=== PATIENT | female | born 1985 | race Caucasian/White ===

== ENCOUNTER 2016-08-11 12:45 | Emergency (ER) | payer MEDICARE ==
[2016-08-11 12:58] VITALS: O2SAT 97
[2016-08-11] MEDS ORDERED: Sodium Chloride 0.9% 1000 ML 1,000 ML IV STA (13:13)
[2016-08-11] MEDS ORDERED: Zofran 4 MG/2 ML VIAL IV ONE (13:13)
[2016-08-11] MEDS ORDERED: Pepcid 20 MG VIAL IV ONE ×2 (13:13→13:42)
[2016-08-11] MEDS ORDERED: SUBLIMAZE 100 MCG/2 ML IV ONE ×2 (13:13→14:49)
--- NOTE | 2016-08-11 13:20 | ERPHSYRPT ---
- History of Present Illness Time Seen by Provider: 08/11/16 12:47 Historian: patient, family Exam Limitations: no limitations Patient Subjective Stated Complaint: pt started prep last night at 5 om for colonoscopy, and started vomiting, vomited x3 today, had one bm since prep, abd pain ,chills and headache, no fever Triage Nursing Assessment: pt given sickness bag, alert and in no distress, resp easy, skin w/d and soft Physician History: patient started a GI prep for a colonoscopy; now wiht abd cramps , N&V; one small BM and some clear diarrhea; colonoscopy canceled due to poor prep, no fever or chilss; some gu symptoms Timing/Duration: today, gradual onset, worse Activities at Onset: other (colon prep) Quality: aching, cramping Abdominal Pain Onset Location: LLQ, epigastric Pain Radiation: no radiation Severity of Pain-Max: severe Severity of Pain-Current: moderate Modifying Factors: Improves With: other (colon prep) Associated Symptoms: back, loss of appetite, nausea, vomiting Previous symptoms: recently seen, recently treated Allergies/Adverse Reactions: magnesium citrate Allergy (Verified 08/11/16 12:59) morphine Allergy (Verified 12/27/13 23:14) Rash venom-honey bee [bee venom (honey bee)] Allergy (Verified 11/28/14 18:44) Hx Tetanus, Diphtheria Vaccination/Date Given: No Hx Influenza Vaccination/Date Given: Yes Hx Pneumococcal Vaccination/Date Given: No Immunizations Up to Date: Yes - Review of Systems Constitutional: No Symptoms Eyes: No Symptoms Ears, Nose, & Throat: No Symptoms Respiratory: No Cough, No Dyspnea, No Wheezing Cardiac: No Chest Pain, No Edema, No Palpitations, No Syncope Abdominal/Gastrointestinal: Abdominal Pain, Nausea, Vomiting, No Diarrhea, No Constipation, No Hematemesis, No Hematochezia, No Melena Genitourinary Symptoms: Dysuria, Flank Pain, No Frequency, No Hematuria, No Hesitancy, No Incontinence, No Urinary Retention, No Menorrhagia Musculoskeletal: Back Pain, No Deformity, No Fall, No Injury Skin: No Symptoms Neurological: No Symptoms Psychological: No Symptoms Endocrine: No Symptoms Hematologic/Lymphatic: No Symptoms Immunological/Allergic: No Symptoms - Past Medical History Pertinent Past Medical History: Yes Neurological History: No Pertinent History ENT History: No Pertinent History Cardiac History: No Pertinent History Respiratory History: Asthma Endocrine Medical History: No Pertinent History Musculoskeletal History: Degenerative Disk Disease GI Medical History: GERD, Irritable Bowel Psycho-Social History: Bipolar, Other Other Medical History: Hx of sciatica treated with chiropractic and physical therapy. Bipolar. - Past Surgical History Past Surgical History: Yes Gastrointestinal: Cholecystectomy Other Surgical History: cyst removed from tailbone - Social History Smoking Status: Never smoker Exposure to second hand smoke: Yes Alcohol Use: None Drug Use: none Patient Lives Alone: No Significant Family History: no pertinent family hx - Female History Hx Last Menstrual Period: 3 weks ago Hx Now: Yes - Nursing Vital Signs Nursing Vital Signs: Initial Vital Signs Temperature 97.4 F Temperature Source Oral Pulse Rate 70 Respiratory Rate 18 Blood Pressure [] 122/63 Pain Intensity 7 - Physical Exam General Appearance: moderate distress, alert, obese (mild) Eye Exam: PERRL/EOMI, eyes nml inspection, No photophobia Ears, Nose, Throat Exam: normal ENT inspection, TMs normal, pharynx normal, moist mucous membranes Neck Exam: normal inspection, non-tender, supple, full range of motion, No meningismus, No JVD Respiratory Exam: normal breath sounds, lungs clear, airway intact, No chest tenderness, No respiratory distress Cardiovascular Exam: regular rate/rhythm, normal heart sounds, normal peripheral pulses, No murmur Gastrointestinal/Abdomen Exam: soft, normal bowel sounds (hypoactive present), tenderness (epig > LLQ), No distention, No mass, No guarding, No pulsatile mass , No rebound, No organomegaly Pelvic Exam: deferred Rectal Exam: normal exam, normal rectal tone, No mass, No hemorrhoids, No black stool, No blood Back Exam: normal inspection, normal range of motion, CVA tenderness (right only ) Extremity Exam: normal inspection, normal range of motion, pelvis stable Neurologic Exam: alert, oriented x 3, cooperative, 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, normal mood/affect, nml cerebellar function, nml station & gait, sensation nml Skin Exam: normal color, warm, dry, No rash SpO2 Interpretation: normal SpO2: 97 Oxygen Delivery: Room Air - Course Nursing assessment & vital signs reviewed: Yes - Radiology Exams Abdomen X-ray Interpretation: Reviewed by me, Teleradiologist Report, Negative Ordered Tests: Active Orders 24 hr Category Date Time Status IV Insertion STAT Care 08/11/16 13:13 Active Re-Check Vital Signs STAT Care 08/11/16 13:13 Completed OBSTR/ACUTE ABDOMEN SERIES Stat Exams 08/11/16 13:13 Completed AMYLASE Stat Lab 08/11/16 13:26 Completed CBC W DIFF Stat Lab 08/11/16 13:26 Completed CMP Stat Lab 08/11/16 13:26 Completed LIPASE Stat Lab 08/11/16 13:26 Completed UA W/ MICROSCOPIC Stat Lab 08/11/16 13:35 Completed Medication Summary Discontinued Medications Generic Name Dose Route Start Last Admin Trade Name Freq PRN Reason Stop Dose Admin Famotidine 20 mg 08/11/16 13:13 08/11/16 13:49 Pepcid 20 Mg Vial IV 08/11/16 13:14 20 mg STAT ONE Administration Famotidine Confirm 08/11/16 13:42 Pepcid 20 Mg Vial Administered 08/11/16 13:43 Dose 20 mg IV .STK-MED ONE Fentanyl Citrate 50 mcg 08/11/16 13:13 08/11/16 13:49 Sublimaze 100 Mcg/2 Ml IV 08/11/16 13:14 50 mcg STAT ONE Administration Fentanyl Citrate Confirm 08/11/16 13:42 Sublimaze 100 Mcg/2 Ml Administered 08/11/16 13:43 Dose 100 mcg .ROUTE .STK-MED ONE Fentanyl Citrate 50 mcg 08/11/16 14:49 08/11/16 14:57 Sublimaze 100 Mcg/2 Ml IV 08/11/16 14:50 50 mcg STAT ONE Administration Fentanyl Citrate Confirm 08/11/16 14:56 Sublimaze 100 Mcg/2 Ml Administered 08/11/16 14:57 Dose 100 mcg .ROUTE .STK-MED ONE Sodium Chloride 1,000 mls @ 999 mls/hr 08/11/16 13:13 08/11/16 13:50 Sodium Chloride 0.9% 1000 Ml IV 08/11/16 14:13 999 mls/hr .Q1H1M STA Administration Sodium Chloride Confirm 08/11/16 13:43 Sodium Chloride 0.9% 1000 Ml Administered 08/11/16 13:44 Dose 1,000 mls @ ud .ROUTE .STK-MED ONE Ondansetron HCl 4 mg 08/11/16 13:13 08/11/16 13:49 Zofran 4 Mg/2 Ml Vial IV 08/11/16 13:14 4 mg STAT ONE Administration Ondansetron HCl Confirm 08/11/16 13:42 Zofran 4 Mg/2 Ml Vial Administered 08/11/16 13:43 Dose 4 mg .ROUTE .STK-MED ONE Lab/Rad Data: Laboratory Result Diagrams 08/11/16 13:26 08/11/16 13:26 Laboratory Results 08/11/16 08/11/16 08/11/16 Range/Units 13:35 13:26 13:26 WBC 6.4 (4.0-10.5) K/mm3 RBC 4.11 (4.1-5.4) M/mm3 Hgb 12.5 (12.0-16.0) gm/dl Hct 38.1 (35-47) % MCV 92.7 (78-100) fl MCH 30.4 (26-32) pg MCHC 32.8 (32-36) g/dl RDW 13.0 (11.5-14.0) % Plt Count 247 (150-450) K/mm3 MPV 11.1 H (6-9.5) fl Gran % 57.2 (36.0-66.0) % Lymphocytes % 33.7 (24.0-44.0) % Monocytes % 8.6 (0.0-12.0) % Eosinophils % 0.3 (0.00-5.0) % Basophils % 0.2 (0.0-0.4) % Basophils # 0.01 (0-0.4) Sodium 143 (136-145) mEq/L Potassium 3.7 (3.5-5.1) mEq/L Chloride 106 (98-107) mEq/L Carbon Dioxide 26.5 (21-32) mEq/L Anion Gap 13.7 (5-15) MEQ/L BUN 8 L (9-20) mg/dL Creatinine 0.86 (0.55-1.30) mg/dl Estimated GFR > 60 ML/MIN Glucose 90 (70-110) MG/DL Calcium 9.1 (8.5-10.1) mg/dL Total Bilirubin 0.4 (0.2-1.0) mg/dL AST 19 (15-37) U/L ALT 30 (12-78) U/L Alkaline Phosphatase 68 (46-116) U/L Serum Total Protein 7.8 (6.4-8.2) gm/dL Albumin 3.7 (3.4-5.0) g/dL Amylase 62 (25-115) U/L Lipase 200 (73-393) U/L Ur Collection Type CCMS Urine Color YELLOW (YELLOW) Urine Appearance CLEAR (CLEAR) Urine pH 7.5 (5-6) Ur Specific [place] 1.015 (1.005-1.025) Urine Protein NEGATIVE (Negative) Urine Glucose (UA) NEGATIVE (NEGATIVE) mg/dL Urine Ketones NEGATIVE (NEGATIVE) Urine Nitrite NEGATIVE (NEGATIVE) Urine Bilirubin NEGATIVE (NEGATIVE) Urine Urobilinogen 0.2 (0-1) mg/dL Urine WBC (Auto) NEGATIVE (NEGATIVE) Urine RBC (Auto) TRACE-INTACT (0-5) Amandeep/ul Urine Microscopic RBC 0-2 (0-2) /HPF Urine Microscopic WBC 0-2 (0-5) /HPF Ur Epithelial Cells RARE (FEW) /HPF Specimen Received 08-11-16 1340 reviewed - Progress Progress: improved (after meds), pain not gone completely, re-examined (after meds and xr) Progress Note: 08/11/16 13:19 IV started, meds given;labs and xr pending; will recheck after xr 08/11/16 14:00 recheck post xr; no meds yet; no change; labs ok; xr ok; medicating now; will recheck 08/11/16 14:05 recheck and pain resolving; feeling better; pushing IV fluids, will continue IV fluids and recheck 08/11/16 14:21 rechecked after 500 cc IV fluid and patient no longer nauseated and pain improved 08/11/16 15:09 patient continues to improve clinically and feels better; 1000cc of IV fluids given; treatment plan consulted and instructions given Counseled pt/family regarding: lab results, diagnosis, need for follow-up, rad results - Departure Time of Disposition: 15:10 Departure Disposition: Home Clinical Impression: Abdominal pain Condition: Stable Critical Care Time: No Referrals: ANDRES MASSEY [Primary Care Provider] - Instructions: Nausea -- Adult, Abdominal Pain-Adult Additional Instructions: clear fluids 12-24 hours; rest Follow-up with family doctor as directed. Call for appointment. Return if any problems. If you smoke please stop. Call or follow up with your family doctor for assistance if you need it to stop. Please wear your seatbelt when driving. Have a nice day. Thank you for allowing us to participate in your care today. :o) Dr Cem Jean-Baptiste Prescriptions: Ondansetron [Zofran Odt] 4 mg PO Q8H PRN PRN #10 tab.rapdis PRN Reason: Nausea
[2016-08-11] MEDS ORDERED: Zofran 4 MG/2 ML VIAL ONE (13:42)
[2016-08-11] MEDS ORDERED: SUBLIMAZE 100 MCG/2 ML ONE ×2 (13:42→14:56)
[2016-08-11] MEDS ORDERED: Sodium Chloride 0.9% 1000 ML 1,000 ML ONE (13:43)
[2016-08-11 13:52] LABS: Collection Type CCMS
[2016-08-11 13:53] LABS: COMPLETE URINE MICROSCOPIC? YES; Epithelial Cells RARE /HPF (FEW); Ph 7.5 (5-6); WBC 0-2 /HPF (0-5)
[2016-08-11 13:57] LABS: ALBUMIN 3.7 g/dL (3.4-5.0); ALKALINE PHOSPHATASE 68 U/L (46-116); ANION GAP 13.7 MEQ/L (5-15); BILIRUBIN,TOTAL 0.4 mg/dL (0.2-1.0); BLOOD UREA NITROGEN 8 mg/dL (9-20); CHLORIDE 106 mEq/L (98-107); Carbon Dioxide 26.5 mEq/L (21-32); Glucose 90 MG/DL (70-110); LIPASE 200 U/L (73-393); Potassium 3.7 mEq/L (3.5-5.1); SGOT/AST 19 U/L (15-37); SGPT/ALT 30 U/L (12-78); SODIUM 143 mEq/L (136-145); Total Protein 7.8 gm/dL (6.4-8.2)
--- NOTE | 2016-08-11 13:59 | XRAY ---
Indication: Abdominal pain. Comparison: Chest exam December 06, 2014 2 views of the abdomen appears nonacute and nonobstructed with previous cholecystectomy, right pelvic phlebolith, and solitary hepatic calcified granuloma. Solid organs and osseous structures unremarkable. Single PA chest again demonstrates normal heart and lungs. Bony thorax intact with interval lower cervical fusion surgery. Impression: Nonacute nonobstructed abdomen. Normal 1 view chest.
[2016-08-11 14:41] LABS: BASOPHIL % 0.2 % (0.0-0.4); Eosinophil % 0.3 % (0.00-5.0); Granulocytes % 57.2 % (36.0-66.0); Lymphocytes % 33.7 % (24.0-44.0); Mean Cell Volume 92.7 fl (78-100); Mean Corpuscular Hemoglobin 30.4 pg (26-32); Mean Platelet Volume 11.1 fl (6-9.5); Monocytes % 8.6 % (0.0-12.0); Platelet Count 247 K/mm3 (150-450); Red Blood Count 4.11 M/mm3 (4.1-5.4); White Blood Count 6.4 K/mm3 (4.0-10.5)
[2016-08-11 21:42] VITALS: BP 122/63; PULSE 70
== END 2016-08-11 15:20 | disposition home or self-care (01) ==
LOC: ED 12:45
DX: R10.9 Unspecified abdominal pain (principal); R11.2 Nausea with vomiting, unspecified; K21.9 Gastro-esophageal reflux disease without esophagitis; K58.9 Irritable bowel syndrome, unspecified
CPT/HCPCS: 36000; 36415; 74022; 80053; 81000; 82150; 83690; 85025; 96360; 96374; 96375; 96376; 99283; 99284; J2405; J3010

== ENCOUNTER 2016-10-13 19:32 | Emergency (ER) | payer MEDICARE ==
[2016-10-13 19:48] VITALS: O2SAT 97
--- NOTE | 2016-10-13 20:02 | ERPHSYRPT ---
- History of Present Illness Time Seen by Provider: 10/13/16 19:51 Source: patient Patient Subjective Stated Complaint: Pt sts hx of asthma, feeling short of breath for a few days. Sts has a cought that has now subsided. Sts also worsening heartburn for last few days. Sts protonix is not helping. Sts chest tightness for last few hours which she relates to asthma. Sts it was center of chest radiating into anterior neck. Sts worse with lying down. Describes as dull, tightness, pressure. Triage Nursing Assessment: Pt alert, oriented, answers all questions appropriately. Speaking in full sentences without difficulty. SPO2 97%. Pt ambulatory to room, steady gait noted. Skin p/w/d, resps non-labored. Allergies/Adverse Reactions: magnesium citrate Allergy (Verified 08/11/16 12:59) morphine Allergy (Verified 12/27/13 23:14) Rash venom-honey bee [bee venom (honey bee)] Allergy (Verified 11/28/14 18:44) Hx Tetanus, Diphtheria Vaccination/Date Given: No Hx Influenza Vaccination/Date Given: Yes Hx Pneumococcal Vaccination/Date Given: Yes Immunizations Up to Date: Yes - Past Medical History Pertinent Past Medical History: Yes Neurological History: No Pertinent History ENT History: No Pertinent History Cardiac History: No Pertinent History Respiratory History: Asthma Endocrine Medical History: No Pertinent History Musculoskeletal History: Degenerative Disk Disease GI Medical History: GERD, Irritable Bowel Psycho-Social History: Bipolar, Other Other Medical History: Hx of sciatica treated with chiropractic and physical therapy. Bipolar. - Past Surgical History Past Surgical History: Yes Gastrointestinal: Cholecystectomy Other Surgical History: cyst removed from tailbone - Social History Smoking Status: Never smoker Exposure to second hand smoke: No Alcohol Use: None Drug Use: none Patient Lives Alone: No Significant Family History: no pertinent family hx - Female History Hx Last Menstrual Period: couple days ago Hx Now: Yes - Nursing Vital Signs Nursing Vital Signs: Initial Vital Signs Temperature 98.4 F Temperature Source Oral Pulse Rate 74 Respiratory Rate 18 Blood Pressure [Right Arm] 120/74 Pain Intensity 5 - Physical Exam SpO2: 97 Oxygen Delivery: Room Air
[2016-10-13] MEDS ORDERED: TYLENOL 325 MG PO ONE (20:07)
[2016-10-13] MEDS ORDERED: Zofran 4 MG/2 ML VIAL IV ONE (20:07)
[2016-10-13] MEDS ORDERED: TORAdol 30 mg Injection IV ONE (20:07)
[2016-10-13] MEDS ORDERED: GI COCKTAIL 60ML (Belladonn/Phenobarb/Lidoc PO ONE (20:09)
[2016-10-13] MEDS ORDERED: Sodium Chloride 0.9% 1000 ML 1,000 ML IV STA (20:10)
--- NOTE | 2016-10-13 20:10 | ERPHSYRPT ---
- History of Present Illness Time Seen by Provider: 10/13/16 20:04 Source: patient Exam Limitations: no limitations Patient Subjective Stated Complaint: Pt sts hx of asthma, feeling short of breath for a few days. Sts has a cought that has now subsided. Sts also worsening heartburn for last few days. Sts protonix is not helping. Sts chest tightness for last few hours which she relates to asthma. Sts it was center of chest radiating into anterior neck. Sts worse with lying down. Describes as dull, tightness, pressure. Triage Nursing Assessment: Pt alert, oriented, answers all questions appropriately. Speaking in full sentences without difficulty. SPO2 97%. Pt ambulatory to room, steady gait noted. Skin p/w/d, resps non-labored. Physician History: The patient is a 30-year-old obese female with a past medical history of asthma initially complaining of shortness of breath and a cough for 2 days but now the cough and shortness of breath have subsided. She now complains of heartburn and substernal chest pain that hurts more with breathing. She has been belching frequently and this makes the pain in her chest worse. The Protonix she is on is helping. She tried Pepto-Bismol today but vomited. She's vomited the past 3 days. In addition to her daily medicines for asthma she has taken albuterol nebulizers that have relieved her wheezing that she was complaining about today. Her past medical history is significant for asthma, fibromyalgia, hypertension, and IBS. Her past surgical history is significant for cholecystectomy. Timing/Duration: day(s) (3) Severity: moderate Modifying Factors: Improves With: eating Associated Symptoms: nausea, vomiting, heartburn, cough Allergies/Adverse Reactions: magnesium citrate Allergy (Verified 10/13/16 19:51) morphine Allergy (Verified 10/13/16 19:51) Rash venom-honey bee [bee venom (honey bee)] Allergy (Verified 10/13/16 19:51) Home Medications: Albuterol 2.5 mg/3 ml Neb [Proventil 2.5 mg/3 ml Neb] 2.5 mg IH PRN [History] Baclofen 10 mg PO 5XD 10/13/16 [History] Bupropion HCl [Wellbutrin Sr] 150 mg PO DAILY 10/13/16 [History] Doxycycline Hyclate 100 mg PO DAILY 10/13/16 [History] Fluoxetine HCl [Prozac] 20 mg PO DAILY 10/13/16 [History] Gabapentin 100 mg PO DAILY 10/13/16 [History] Mometasone/Formoterol [Dulera 100 Mcg/5 Mcg Inhaler] 13 gm IH 10/13/16 [History] Pantoprazole Sodium [Protonix] 40 mg PO DAILY 10/13/16 [History] Hx Tetanus, Diphtheria Vaccination/Date Given: No Hx Influenza Vaccination/Date Given: Yes Hx Pneumococcal Vaccination/Date Given: Yes Immunizations Up to Date: Yes - Review of Systems Constitutional: No Fever, No Chills Eyes: No Symptoms Ears, Nose, & Throat: No Symptoms Respiratory: Cough, Wheezing Cardiac: No Chest Pain, No Edema, No Syncope Abdominal/Gastrointestinal: Nausea, Vomiting Genitourinary Symptoms: No Dysuria Musculoskeletal: No Back Pain, No Neck Pain Skin: No Rash Neurological: No Dizziness, No Focal Weakness, No Sensory Changes Psychological: No Symptoms Endocrine: No Symptoms Hematologic/Lymphatic: No Symptoms Immunological/Allergic: No Symptoms All Other Systems: Reviewed and Negative - Past Medical History Pertinent Past Medical History: Yes Neurological History: No Pertinent History ENT History: No Pertinent History Cardiac History: No Pertinent History Respiratory History: Asthma Endocrine Medical History: No Pertinent History Musculoskeletal History: Degenerative Disk Disease GI Medical History: GERD, Irritable Bowel Psycho-Social History: Bipolar, Other Other Medical History: Hx of sciatica treated with chiropractic and physical therapy. Bipolar. - Past Surgical History Past Surgical History: Yes Gastrointestinal: Cholecystectomy Other Surgical History: cyst removed from tailbone - Social History Smoking Status: Never smoker Exposure to second hand smoke: No Alcohol Use: None Drug Use: none Patient Lives Alone: No Significant Family History: no pertinent family hx - Female History Hx Last Menstrual Period: couple days ago Hx Now: Yes - Nursing Vital Signs Nursing Vital Signs: Initial Vital Signs Temperature 98.4 F Temperature Source Oral Pulse Rate 64 Respiratory Rate 16 Blood Pressure [] 122/76 Pain Intensity 3 - Physical Exam General Appearance: no apparent distress, alert Eye Exam: PERRL/EOMI, eyes nml inspection Ears, Nose, Throat Exam: normal ENT inspection, TMs normal, pharynx normal, moist mucous membranes Neck Exam: normal inspection, non-tender, supple, full range of motion Respiratory Exam: normal breath sounds, lungs clear, other (Examination of the anterior chest wall reveals disproportionate tenderness to palpation of light touch to the sternum.), No respiratory distress, No diminished breath sounds, No rhonchi, No wheezing Cardiovascular Exam: regular rate/rhythm, normal heart sounds, normal peripheral pulses Gastrointestinal/Abdomen Exam: soft, normal bowel sounds, No tenderness, No mass Pelvic Exam: not done Rectal Exam: not done Back Exam: normal inspection, normal range of motion, No CVA tenderness, No vertebral tenderness Extremity Exam: normal inspection, normal range of motion, pelvis stable Neurologic Exam: alert, oriented x 3, cooperative, normal mood/affect, nml cerebellar function, nml station & gait, sensation nml, No motor deficits Skin Exam: normal color, warm, dry, No rash Lymphatic Exam: No adenopathy SpO2 Interpretation: normal SpO2: 97 Oxygen Delivery: Room Air - Radiology Exams Chest X-ray Interpretation: Interpreted by me, Negative, Other (Neg chest, comp cxr .) Ordered Tests: Active Orders 24 hr Category Date Time Status IV Insertion STAT Care 10/13/16 20:07 Active CHEST 2 VIEWS (PA AND LAT) Stat Exams 10/13/16 20:08 Taken CBC W DIFF Stat Lab 10/13/16 20:45 Completed CMP Stat Lab 10/13/16 20:45 Completed Medication Summary Discontinued Medications Generic Name Dose Route Start Last Admin Trade Name Dustyq PRN Reason Stop Dose Admin Acetaminophen 975 mg 10/13/16 20:07 10/13/16 20:24 Tylenol 325 Mg PO 10/13/16 20:08 975 mg STAT ONE Administration Acetaminophen Confirm 10/13/16 20:18 Tylenol 325 Mg Administered 10/13/16 20:19 Dose 975 mg .ROUTE .STK-MED ONE Al Hydrox/Mg Hydrox/Simethicone Confirm 10/13/16 20:18 Maalox Es 30 Ml Unit Dose Administered 10/13/16 20:19 Dose 30 ml .ROUTE .STK-MED ONE Belladonna Alkaloids/Phenobarbital 60 ml 10/13/16 20:09 10/13/16 20:24 Gi Cocktail 60ml (Belladonn/Phenobarb/Lidoc* PO 10/13/16 20:10 60 ml STAT ONE Administration Belladonna Alkaloids/Phenobarbital Confirm 10/13/16 20:18 Donnatol Liquid Administered 10/13/16 20:19 Dose 64.8 mg .ROUTE .STK-MED ONE Sodium Chloride 1,000 mls @ 999 mls/hr 10/13/16 20:10 10/13/16 20:24 Sodium Chloride 0.9% 1000 Ml IV 10/13/16 21:10 999 mls/hr .Q1H1M STA Administration Sodium Chloride Confirm 10/13/16 20:18 Sodium Chloride 0.9% 1000 Ml Administered 10/13/16 20:19 Dose 1,000 mls @ ud .ROUTE .STK-MED ONE Ketorolac Tromethamine 30 mg 10/13/16 20:07 10/13/16 20:24 Toradol 30 Mg Injection IV 10/13/16 20:08 30 mg STAT ONE Administration Ketorolac Tromethamine Confirm 10/13/16 20:17 Toradol 30 Mg Injection Administered 10/13/16 20:18 Dose 30 mg .ROUTE .STK-MED ONE Lidocaine HCl Confirm 10/13/16 20:19 Xylocaine Hcl Viscous * Administered 10/13/16 20:20 Dose 20 ml .ROUTE .STK-MED ONE Ondansetron HCl 4 mg 10/13/16 20:07 10/13/16 20:24 Zofran 4 Mg/2 Ml Vial IV 10/13/16 20:08 4 mg STAT ONE Administration Ondansetron HCl Confirm 10/13/16 20:17 Zofran 4 Mg/2 Ml Vial Administered 10/13/16 20:18 Dose 4 mg .ROUTE .STK-MED ONE Lab/Rad Data: Laboratory Result Diagrams 10/13/16 20:45 10/13/16 20:45 Laboratory Results 10/13/16 10/13/16 Range/Units 20:45 20:45 WBC 8.3 (4.0-10.5) K/mm3 RBC 4.27 (4.1-5.4) M/mm3 Hgb 13.3 (12.0-16.0) gm/dl Hct 40.6 (35-47) % MCV 95.1 (78-100) fl MCH 31.1 (26-32) pg MCHC 32.8 (32-36) g/dl RDW 13.6 (11.5-14.0) % Plt Count 241 (150-450) K/mm3 MPV 10.9 H (6-9.5) fl Gran % 65.1 (36.0-66.0) % Lymphocytes % 25.7 (24.0-44.0) % Monocytes % 7.3 (0.0-12.0) % Eosinophils % 1.7 (0.00-5.0) % Basophils % 0.2 (0.0-0.4) % Basophils # 0.02 (0-0.4) Sodium 144 (136-145) mEq/L Potassium 4.2 (3.5-5.1) mEq/L Chloride 106 (98-107) mEq/L Carbon Dioxide 29.2 (21-32) mEq/L Anion Gap 12.7 (5-15) MEQ/L BUN 11 (9-20) mg/dL Creatinine 0.81 (0.55-1.30) mg/dl Estimated GFR > 60 ML/MIN Glucose 95 (70-110) MG/DL Calcium 9.6 (8.5-10.1) mg/dL Total Bilirubin 0.3 (0.2-1.0) mg/dL AST 25 (15-37) U/L ALT 34 (12-78) U/L Alkaline Phosphatase 60 (46-116) U/L Serum Total Protein 8.3 H (6.4-8.2) gm/dL Albumin 3.9 (3.4-5.0) g/dL - Progress Progress: improved Progress Note: 10/13/16 20:54 After the patient was given a GI cocktail, the pain subsided for a few minutes but the pain has slowly returned. Counseled pt/family regarding: lab results, diagnosis, need for follow-up, rad results - Departure Time of Disposition: 21:15 Departure Disposition: Home Clinical Impression: Reflux esophagitis Condition: Stable Critical Care Time: No Additional Instructions: Your laboratory results and the chest x-ray were normal. You were given a GI cocktail in the emergency room with immediate resolution of the pain. However the pain slowly began to return. Your diagnosis is reflux esophagitis. Continue with Protonix as directed. In addition take Maalox 30 mL as needed throughout the day. Refrain from eating or drinking any spicy foods. Follow- up with primary medical doctor.
[2016-10-13] MEDS ORDERED: Zofran 4 MG/2 ML VIAL ONE (20:17)
[2016-10-13] MEDS ORDERED: TORAdol 30 mg Injection ONE (20:17)
[2016-10-13] MEDS ORDERED: TYLENOL 325 MG ONE (20:18)
[2016-10-13] MEDS ORDERED: Sodium Chloride 0.9% 1000 ML 1,000 ML ONE (20:18)
[2016-10-13] MEDS ORDERED: Donnatol Liquid ONE (20:18)
[2016-10-13] MEDS ORDERED: MAALOX ES 30 ML UNIT DOSE ONE (20:18)
[2016-10-13] MEDS ORDERED: XYLOCAINE HCl Viscous ONE (20:19)
[2016-10-13 20:49] LABS: BASOPHIL % 0.2 % (0.0-0.4); Eosinophil % 1.7 % (0.00-5.0); Granulocytes % 65.1 % (36.0-66.0); Lymphocytes % 25.7 % (24.0-44.0); Mean Cell Volume 95.1 fl (78-100); Mean Corpuscular Hemoglobin 31.1 pg (26-32); Mean Platelet Volume 10.9 fl (6-9.5); Monocytes % 7.3 % (0.0-12.0); Platelet Count 241 K/mm3 (150-450); Red Blood Count 4.27 M/mm3 (4.1-5.4); Red Cell Distribution Width 13.6 % (11.5-14.0); White Blood Count 8.3 K/mm3 (4.0-10.5)
[2016-10-13 20:58] VITALS: BP 122/76; PULSE 64
[2016-10-13 21:10] LABS: ALBUMIN 3.9 g/dL (3.4-5.0); ALKALINE PHOSPHATASE 60 U/L (46-116); ANION GAP 12.7 MEQ/L (5-15); BILIRUBIN,TOTAL 0.3 mg/dL (0.2-1.0); BLOOD UREA NITROGEN 11 mg/dL (9-20); CHLORIDE 106 mEq/L (98-107); Carbon Dioxide 29.2 mEq/L (21-32); Glucose 95 MG/DL (70-110); Potassium 4.2 mEq/L (3.5-5.1); SGOT/AST 25 U/L (15-37); SGPT/ALT 34 U/L (12-78); SODIUM 144 mEq/L (136-145); Total Protein 8.3 gm/dL (6.4-8.2)
--- NOTE | 2016-10-14 08:32 | XRAY ---
Indication: Cough. Comparison: August 11, 2016. PA/lateral chest again demonstrates normal heart and lungs. Bony thorax intact again with previous lower cervical fusion surgery. No new/acute findings.
== END 2016-10-13 21:48 | disposition home or self-care (01) ==
LOC: ED 19:32
DX: K21.0 Gastro-esophageal reflux disease with esophagitis (principal); R06.02 Shortness of breath; R05 Cough; J45.909 Unspecified asthma, uncomplicated; I10 Essential (primary) hypertension; K58.9 Irritable bowel syndrome, unspecified; M79.7 Fibromyalgia; R11.2 Nausea with vomiting, unspecified; R12 Heartburn; Z79.899 Other long term (current) drug therapy
CPT/HCPCS: 36000; 36415; 71020; 80053; 85025; 96360; 96374; 96375; 99284; J1885; J2405; A9270-GY

== ENCOUNTER 2017-03-10 18:55 | Emergency (ER) | payer MEDICARE ==
[2017-03-10] MEDS ORDERED: Zofran 4 MG/2 ML VIAL IV ONE (19:09)
[2017-03-10] MEDS ORDERED: TORAdol 30 mg Injection IV ONE ×2 (19:09→20:27)
[2017-03-10] MEDS ORDERED: Sodium Chloride 0.9% 1000 ML 1,000 ML IV SCH (19:15)
--- NOTE | 2017-03-10 19:16 | ERPHSYRPT ---
- History of Present Illness Time Seen by Provider: 03/10/17 19:01 Historian: patient Physician History: onset right flank pain yesterday; getting worse; colicky like last kidney stone 2007; N&V- no blood; BMs ok; voiding ok but dark; no gross blood; no fever or chills; no trauma; no travel or exposures; no fever or chills Timing/Duration: today (worse and moveing), yesterday (onseet), sudden, worse Activities at Onset: rest Quality: aching, stabbing Abdominal Pain Onset Location: flank (right) Pain Radiation: RLQ Severity of Pain-Max: severe Severity of Pain-Current: severe Modifying Factors: Improves With: nothing Associated Symptoms: back, loss of appetite, nausea, vomiting Previous symptoms: same symptoms as today Allergies/Adverse Reactions: magnesium citrate Allergy (Verified 10/13/16 19:51) morphine Allergy (Verified 10/13/16 19:51) Rash venom-honey bee [bee venom (honey bee)] Allergy (Verified 10/13/16 19:51) Home Medications: Albuterol 2.5 mg/3 ml Neb [Proventil 2.5 mg/3 ml Neb] 2.5 mg IH PRN [History] Baclofen 10 mg PO 5XD 10/13/16 [History] Bupropion HCl [Wellbutrin Sr] 150 mg PO DAILY 10/13/16 [History] Doxycycline Hyclate 100 mg PO DAILY 10/13/16 [History] Fluoxetine HCl [Prozac] 20 mg PO DAILY 10/13/16 [History] Gabapentin 200 mg PO DAILY 10/13/16 [History] Mometasone/Formoterol [Dulera 100 Mcg/5 Mcg Inhaler] 13 gm IH 10/13/16 [History] Pantoprazole Sodium [Protonix] 40 mg PO DAILY 10/13/16 [History] Linaclotide [Linzess] 0 mcg PO DAILY 03/10/17 [History] Lurasidone HCl [Latuda] 20 mg PO DAILY 03/10/17 [History] Hx Tetanus, Diphtheria Vaccination/Date Given: No Hx Influenza Vaccination/Date Given: Yes Hx Pneumococcal Vaccination/Date Given: Yes - Review of Systems Constitutional: No Symptoms Eyes: No Symptoms Ears, Nose, & Throat: No Symptoms Respiratory: No Cough, No Dyspnea, No Wheezing Cardiac: No Chest Pain, No Edema, No Syncope Abdominal/Gastrointestinal: Abdominal Pain (right flank), Nausea, Vomiting, Appetite Changes, No Diarrhea, No Constipation Genitourinary Symptoms: Flank Pain, No Dysuria, No Hematuria, No Incontinence Musculoskeletal: Back Pain (right flank), No Fall, No Injury Skin: No Symptoms Neurological: No Symptoms Psychological: No Symptoms Endocrine: No Symptoms Hematologic/Lymphatic: No Symptoms Immunological/Allergic: No Symptoms - Past Medical History Pertinent Past Medical History: Yes Neurological History: Migraines ENT History: No Pertinent History Cardiac History: Arrhythmia, Hypertension Respiratory History: Asthma Endocrine Medical History: No Pertinent History Musculoskeletal History: Fibromyalgia GI Medical History: GERD, Irritable Bowel Psycho-Social History: Bipolar, Other Other Medical History: back pain, back surgery, carpal tunnel - Past Surgical History Past Surgical History: Yes Gastrointestinal: Cholecystectomy Other Surgical History: cyst removed from tailbone - Social History Smoking Status: Never smoker Exposure to second hand smoke: No Alcohol Use: None Drug Use: none Patient Lives Alone: No Significant Family History: no pertinent family hx - Female History Hx Now: Yes - Nursing Vital Signs Nursing Vital Signs: Initial Vital Signs Temperature 99.4 F 03/10/17 19:15 Pulse Rate 70 03/10/17 19:15 Respiratory Rate 20 03/10/17 19:15 Blood Pressure 124/73 03/10/17 19:15 O2 Sat by Pulse Oximetry 96 03/10/17 19:15 Pain Scale Pain Intensity 6 - Physical Exam General Appearance: severe distress, alert, obese Eye Exam: PERRL/EOMI, eyes nml inspection, No photophobia Ears, Nose, Throat Exam: normal ENT inspection, TMs normal, pharynx normal, moist mucous membranes Neck Exam: normal inspection, non-tender, supple, full range of motion, No meningismus, No JVD Respiratory Exam: normal breath sounds, lungs clear, airway intact, No chest tenderness, No respiratory distress, No rhonchi, No wheezing Cardiovascular Exam: regular rate/rhythm, normal heart sounds, normal peripheral pulses, capillary refill <2 sec, No murmur Gastrointestinal/Abdomen Exam: soft, normal bowel sounds, No tenderness, No guarding, No rebound, No organomegaly Pelvic Exam: not done Rectal Exam: deferred Back Exam: normal inspection, normal range of motion, CVA tenderness (right only ), No vertebral tenderness, No rash Extremity Exam: normal inspection, No normal range of motion, No katarzyna's sign, No pedal edema Neurologic Exam: alert, oriented x 3, cooperative, x ray inspector II-XII nml as tested, normal mood/affect, nml cerebellar function, nml station & gait Skin Exam: normal color, warm, dry, No rash - Course Nursing assessment & vital signs reviewed: Yes - CT Exams Abdomen/Pelvis CT Interpretation: Tele-radiologist Report, Other (2-3 mm stone distal right ureter; also small stone in left and right renal pelvis) Ordered Tests: Active Orders 24 hr Category Date Time Status Clean Catch Urine Specimen STAT Care 03/10/17 19:44 Active IV Insertion STAT Care 03/10/17 19:09 Active NPO (ED) STAT Care 03/10/17 19:09 Active Re-Check Vital Signs STAT Care 03/10/17 19:09 Active ABDOMEN AND PELVIS W/0 CONTRAS [CT] Stat Exams 03/10/17 19:10 Taken CBC W DIFF Stat Lab 03/10/17 19:30 Completed CMP Stat Lab 03/10/17 19:30 Completed CULTURE,URINE Stat Lab 03/10/17 19:20 Received HCG,QUALITATIVE URINE Stat Lab 03/10/17 19:20 Completed UA W/ MICROSCOPIC Stat Lab 03/10/17 19:20 Completed Medication Summary Generic Name Dose Route Start Last Admin Trade Name Freq PRN Reason Stop Dose Admin Sodium Chloride 1,000 mls @ 100 mls/hr 03/10/17 19:15 03/10/17 19:33 Sodium Chloride 0.9% 1000 Ml IV 04/09/17 19:14 100 mls/hr .Q10H LINDA Administration Discontinued Medications Generic Name Dose Route Start Last Admin Trade Name Freq PRN Reason Stop Dose Admin Ketorolac Tromethamine 30 mg 03/10/17 19:09 03/10/17 19:33 Toradol 30 Mg Injection IV 03/10/17 19:10 30 mg STAT ONE Administration Ketorolac Tromethamine Confirm 03/10/17 19:30 Toradol 30 Mg Injection Administered 03/10/17 19:31 Dose 30 mg .ROUTE .STK-MED ONE Ketorolac Tromethamine 30 mg 03/10/17 20:27 03/10/17 20:31 Toradol 30 Mg Injection IV 03/10/17 20:28 30 mg STAT ONE Administration Ketorolac Tromethamine Confirm 03/10/17 20:28 Toradol 30 Mg Injection Administered 03/10/17 20:29 Dose 30 mg .ROUTE .STK-MED ONE Ondansetron HCl 4 mg 03/10/17 19:09 03/10/17 19:33 Zofran 4 Mg/2 Ml Vial IV 03/10/17 19:10 4 mg STAT ONE Administration Ondansetron HCl Confirm 03/10/17 19:30 Zofran 4 Mg/2 Ml Vial Administered 03/10/17 19:31 Dose 4 mg .ROUTE .STK-MED ONE Lab/Rad Data: Laboratory Result Diagrams 03/10/17 19:30 03/10/17 19:30 Laboratory Results 03/10/17 03/10/17 03/10/17 Range/Units 19:30 19:30 19:20 WBC 7.9 (4.0-10.5) K/mm3 RBC 4.22 (4.1-5.4) M/mm3 Hgb 13.3 (12.0-16.0) gm/dl Hct 40.0 (35-47) % MCV 94.8 (78-100) fl MCH 31.5 (26-32) pg MCHC 33.3 (32-36) g/dl RDW 13.2 (11.5-14.0) % Plt Count 229 (150-450) K/mm3 MPV 10.3 H (6-9.5) fl Gran % 58.0 (36.0-66.0) % Lymphocytes % 31.6 (24.0-44.0) % Monocytes % 8.0 (0.0-12.0) % Eosinophils % 2.3 (0.00-5.0) % Basophils % 0.1 (0.0-0.4) % Basophils # 0.01 (0-0.4) Sodium 141 (136-145) mEq/L Potassium 3.8 (3.5-5.1) mEq/L Chloride 105 (98-107) mEq/L Carbon Dioxide 27.8 (21-32) mEq/L Anion Gap 12.4 (5-15) MEQ/L BUN 10 (9-20) mg/dL Creatinine 0.83 (0.55-1.30) mg/dl Estimated GFR > 60 ML/MIN Glucose 88 (70-110) MG/DL Calcium 9.4 (8.5-10.1) mg/dL Total Bilirubin 0.20 (0.2-1.0) mg/dL AST 19 (15-37) U/L ALT 41 (12-78) U/L Alkaline Phosphatase 66 (46-116) U/L Serum Total Protein 7.9 (6.4-8.2) gm/dL Albumin 3.7 (3.4-5.0) g/dL Ur Collection Type Urine Color (YELLOW) Urine Appearance (CLEAR) Urine pH (5-6) Ur Specific Shanks (1.005-1.025) Urine Protein (Negative) Urine Ketones (NEGATIVE) Urine Blood (0-5) Amandeep/ul Urine Nitrite (NEGATIVE) Urine Bilirubin (NEGATIVE) Urine Urobilinogen (0-1) mg/dL Ur Leukocyte Esterase (NEGATIVE) Urine Microscopic RBC (0-2) /HPF Urine Microscopic WBC (0-5) /HPF Ur Epithelial Cells (FEW) /HPF Urine Bacteria (NEGATIVE) /HPF Urine Mucus (NEGATIVE) /HPF Urine Glucose (NEGATIVE) mg/dL Urine HCG, Qual NEGATIVE (Negative) Specimen Received 03/10/17 Range/Units 19:20 WBC (4.0-10.5) K/mm3 RBC (4.1-5.4) M/mm3 Hgb (12.0-16.0) gm/dl Hct (35-47) % MCV (78-100) fl MCH (26-32) pg MCHC (32-36) g/dl RDW (11.5-14.0) % Plt Count (150-450) K/mm3 MPV (6-9.5) fl Gran % (36.0-66.0) % Lymphocytes % (24.0-44.0) % Monocytes % (0.0-12.0) % Eosinophils % (0.00-5.0) % Basophils % (0.0-0.4) % Basophils # (0-0.4) Sodium (136-145) mEq/L Potassium (3.5-5.1) mEq/L Chloride (98-107) mEq/L Carbon Dioxide (21-32) mEq/L Anion Gap (5-15) MEQ/L BUN (9-20) mg/dL Creatinine (0.55-1.30) mg/dl Estimated GFR ML/MIN Glucose (70-110) MG/DL Calcium (8.5-10.1) mg/dL Total Bilirubin (0.2-1.0) mg/dL AST (15-37) U/L ALT (12-78) U/L Alkaline Phosphatase (46-116) U/L Serum Total Protein (6.4-8.2) gm/dL Albumin (3.4-5.0) g/dL Ur Collection Type CCMS Urine Color YELLOW (YELLOW) Urine Appearance CLEAR (CLEAR) Urine pH 5.0 (5-6) Ur Specific Shanks 1.025 (1.005-1.025) Urine Protein NEGATIVE (Negative) Urine Ketones NEGATIVE (NEGATIVE) Urine Blood 250 (0-5) Amandeep/ul Urine Nitrite NEGATIVE (NEGATIVE) Urine Bilirubin NEGATIVE (NEGATIVE) Urine Urobilinogen NORMAL (0-1) mg/dL Ur Leukocyte Esterase 1+ (NEGATIVE) Urine Microscopic RBC 0-2 (0-2) /HPF Urine Microscopic WBC 5-10 (0-5) /HPF Ur Epithelial Cells FEW (FEW) /HPF Urine Bacteria FEW (NEGATIVE) /HPF Urine Mucus SLIGHT (NEGATIVE) /HPF Urine Glucose NEGATIVE (NEGATIVE) mg/dL Urine HCG, Qual (Negative) Specimen Received 03-10-172009 reviewed - Progress Progress: improved (post meds), re-examined (after meds and ct) Progress Note: 03/10/17 19:15 discussed treatment plan; will start IV , give meds; get CTR for Stone and check labs, will monitor and recheck 03/10/17 19:43 some relief of pain and N&V after meds; cT pending; CBC wnl; will monitor and recheck 03/10/17 19:55 HCG neg; will get CT; pain resolving and improved 03/10/17 20:13 BS; renal function; lytes and chem profile all wnl; patient in CT ; will reassess post CT 03/10/17 20:16 ua shows clear; yellow; 1.025; 5.o; 250 blood; 1+ luekocytes; 5-10 wbc; 0-2 rbcs ; few bact 03/10/17 20:29 CT shows small stones in both the left and right renal pelvis and a 2-3 mm stone distal right ureter; patient informed of results; pain meds given; will monitor and recheck; treatment plan and instructions to be given then 03/10/17 20:52 good releif with meds; instructions given Counseled pt/family regarding: lab results, diagnosis, need for follow-up, rad results - Departure Time of Disposition: 20:52 Departure Disposition: Home Clinical Impression: Renal colic on right side, Hematuria, UTI (urinary tract infection) Condition: Stable Critical Care Time: No Referrals: ANDRES MASSEY [Primary Care Provider] - Instructions: Kidney Stones, Urinary Tract Infection (UTI) Additional Instructions: rest; push fluids; cranberry juice; strain urine; call lmd for follow up recheck Follow-up with family doctor as directed. Call for appointment. Return if any problems. If you smoke please stop. Call or follow up with your family doctor for assistance if you need it to stop. Please wear your seatbelt when driving. Have a nice day. Thank you for allowing us to participate in your care today. :o) Dr Cem Jean-Baptiste Prescriptions: Hydrocodon/Ibupr 7.5mg/200mg [Vicoprofen 7.5mg/200mg Tablet] 1 tab PO Q6- 8HPRN PRN #14 tablet PRN Reason: Pain Sulfamethoxazole/Trimethoprim [Bactrim Ds Tablet] 1 each PO BID #20 tablet
[2017-03-10] MEDS ORDERED: Zofran 4 MG/2 ML VIAL ONE (19:30)
[2017-03-10] MEDS ORDERED: TORAdol 30 mg Injection ONE ×2 (19:30→20:28)
[2017-03-10] MEDS ORDERED: Sodium Chloride 0.9% 1000 ML 1,000 ML ONE (19:30)
[2017-03-10 19:38] LABS: BASOPHIL % 0.1 % (0.0-0.4); Eosinophil % 2.3 % (0.00-5.0); Lymphocytes % 31.6 % (24.0-44.0); Mean Cell Volume 94.8 fl (78-100); Mean Corpuscular Hemoglobin 31.5 pg (26-32); Mean Platelet Volume 10.3 fl (6-9.5); Platelet Count 229 K/mm3 (150-450); Red Blood Count 4.22 M/mm3 (4.1-5.4); Red Cell Distribution Width 13.2 % (11.5-14.0); White Blood Count 7.9 K/mm3 (4.0-10.5)
[2017-03-10 19:57] VITALS: O2SAT 98
[2017-03-10 20:04] LABS: ALBUMIN 3.7 g/dL (3.4-5.0); ALKALINE PHOSPHATASE 66 U/L (46-116); ANION GAP 12.4 MEQ/L (5-15); BLOOD UREA NITROGEN 10 mg/dL (9-20); CHLORIDE 105 mEq/L (98-107); Carbon Dioxide 27.8 mEq/L (21-32); Glucose 88 MG/DL (70-110); Potassium 3.8 mEq/L (3.5-5.1); SGOT/AST 19 U/L (15-37); SGPT/ALT 41 U/L (12-78); SODIUM 141 mEq/L (136-145); Total Protein 7.9 gm/dL (6.4-8.2)
[2017-03-10 20:12] LABS: Bilirubin NEGATIVE (NEGATIVE); Collection Type CCMS; Glucose NEGATIVE (NEGATIVE); Leukocyte Esterase 1+ (NEGATIVE)
[2017-03-10 20:13] LABS: ADD URINE CULTURE? YES (NO); Bacteria FEW /HPF (NEGATIVE); Blood 250 Ery/ul (0-5); COMPLETE URINE MICROSCOPIC? YES; Epithelial Cells FEW /HPF (FEW); Mucus SLIGHT /HPF (NEGATIVE)
[2017-03-10 20:56] VITALS: BP 121/76; PULSE 69
--- NOTE | 2017-03-11 08:01 | XRAY ---
Indication: Right flank pain, nausea, and vomiting. History of kidney stones. Multiple contiguous axial images obtained through the abdomen and pelvis without contrast as ordered. Comparison: None Lung bases demonstrates a 7 mm noncalcified nodule in the right posterior gutter probably granulomatous in this demographic. No infiltrate or effusion. Heart is not enlarged. Noncontrasted stomach and bowel loops appear nonobstructed. Normal appendix. No free fluid/air. Nonobstructing punctate calculus in each kidney. Previous cholecystectomy. Remaining liver, pancreas, spleen, adrenal glands, kidneys, ureters, bladder, uterus, and aorta appear unremarkable for noncontrast exam. Osseous structures intact. Impression: 1. Nonobstructing bilateral micro-calculus. 2. No acute intra-abdominal/pelvic abnormalities on this noncontrast exam. 3. Incidental right lung base 7 mm noncalcified nodule probably granulomatous in this demographic. Comment: Preliminary interpretation was made by [facility]. No discrepancy. CTDI 23.67
== END 2017-03-10 21:06 | disposition home or self-care (01) ==
LOC: ED 18:55
DX: N23 Unspecified renal colic (principal); R31.9 Hematuria, unspecified; N39.0 Urinary tract infection, site not specified
CPT/HCPCS: 36000; 36415; 74176; 80053; 81000; 84703; 85025; 87086; 96360; 96361; 96374; 96375; 99283; 99284; J1885; J2405

== ENCOUNTER 2017-10-31 19:01 | Emergency (ER) | payer MEDICARE ==
[2017-10-31] MEDS ORDERED: GI COCKTAIL 45 ML (Maalox/Lidocaine) PO ONE (19:22)
[2017-10-31] MEDS ORDERED: ZOFRAN ODT 4 MG PO ONE (19:22)
--- NOTE | 2017-10-31 19:28 | ERPHSYRPT ---
- History of Present Illness Time Seen by Provider: 10/31/17 19:23 Historian: patient Exam Limitations: no limitations Patient Subjective Stated Complaint: stomach pain Triage Nursing Assessment: pt is alert and oriented. pt is ambulatory. bowel sounds present. pain present in LUQ with and without palpatation. pt is rating pain 10/10. Physician History: Patient with history of GERD who presents with epigastric pain for 4 hours today prior to arrival. Patient states she ate some meatloaf/mashed potatoes prior episode. Described pain similar to previous reflux symptoms, burning to epigastric area, localized, constant and associated with nausea. Patient did take her Prilosec and other GI medicines with minimal relief. Patient denies any vomiting, diarrhea, fever, back pain or urinary symptoms. Timing/Duration: today, hour(s) (4 hrs [employer]) Activities at Onset: other (ate some food) Abdominal Pain Onset Location: epigastric Pain Radiation: no radiation Severity of Pain-Max: moderate Severity of Pain-Current: moderate Modifying Factors: Improves With: antacids (sl. improved), eating (worsens) Associated Symptoms: heartburn, nausea, No back, No chest pain, No diarrhea, No fever/chills, No loss of appetite, No shortness of breath, No vomiting, No weakness Previous symptoms: same symptoms as today Allergies/Adverse Reactions: gluten Allergy (Verified 10/31/17 19:19) magnesium citrate Allergy (Verified 10/13/16 19:51) morphine Allergy (Verified 10/13/16 19:51) Rash venom-honey bee [bee venom (honey bee)] Allergy (Verified 10/13/16 19:51) Home Medications: Albuterol 2.5 mg/3 ml Neb [Proventil 2.5 mg/3 ml Neb] 2.5 mg IH DAILY 12/24 [History] Bupropion HCl [Wellbutrin Sr] 150 mg PO DAILY 10/13/16 [History] Fluoxetine HCl [Prozac] 20 mg PO DAILY 10/13/16 [History] Gabapentin 200 mg PO DAILY 10/13/16 [History] Mometasone/Formoterol [Dulera 100 Mcg/5 Mcg Inhaler] 13 gm IH Q4H PRN PRN [History] Pantoprazole Sodium [Protonix] 40 mg PO DAILY 10/13/16 [History] Lurasidone HCl [Latuda] 20 mg PO HS 03/10/17 [History] Gabapentin 100 mg PO HS 10/31/17 [History] Hx Tetanus, Diphtheria Vaccination/Date Given: Yes Hx Influenza Vaccination/Date Given: No Hx Pneumococcal Vaccination/Date Given: No Immunizations Up to Date: Yes - Review of Systems Constitutional: No Fever, No Chills Eyes: No Symptoms Ears, Nose, & Throat: No Symptoms Respiratory: No Cough, No Dyspnea Cardiac: No Chest Pain, No Edema, No Syncope Abdominal/Gastrointestinal: Abdominal Pain, Nausea, No Vomiting, No Diarrhea, No Hematemesis, No Hematochezia Genitourinary Symptoms: No Dysuria Musculoskeletal: No Symptoms, No Back Pain, No Neck Pain Skin: No Symptoms, No Rash Neurological: No Dizziness, No Focal Weakness, No Sensory Changes Psychological: No Symptoms Endocrine: No Symptoms All Other Systems: Reviewed and Negative - Past Medical History Pertinent Past Medical History: Yes Neurological History: Migraines ENT History: No Pertinent History Cardiac History: Angina, Hypertension Respiratory History: Asthma Endocrine Medical History: Other Musculoskeletal History: Arthritis, Fibromyalgia GI Medical History: GERD, Irritable Bowel History: No Pertinent History Psycho-Social History: Bipolar, Depression, Other Female Reproductive Disorders: No Pertinent History Other Medical History: kidney stones, UTI, EOE - Past Surgical History Past Surgical History: Yes Gastrointestinal: Cholecystectomy Musculoskeletal: Orthopedic Surgery Other Surgical History: cyst removed from tailbone, fusion on neck - Social History Smoking Status: Never smoker Exposure to second hand smoke: No Alcohol Use: None Drug Use: none Patient Lives Alone: No Significant Family History: no pertinent family hx - Female History Hx Now: No - Nursing Vital Signs Nursing Vital Signs: Initial Vital Signs Pulse Rate 81 10/31/17 19:02 Respiratory Rate 18 10/31/17 19:02 Blood Pressure 137/74 10/31/17 19:02 O2 Sat by Pulse Oximetry 97 10/31/17 19:02 Pain Scale Pain Intensity 8 - Physical Exam General Appearance: no apparent distress, alert Eye Exam: PERRL/EOMI, eyes nml inspection Ears, Nose, Throat Exam: normal ENT inspection, pharynx normal, moist mucous membranes Neck Exam: normal inspection, non-tender, supple, full range of motion Respiratory Exam: normal breath sounds, lungs clear, No respiratory distress Cardiovascular Exam: regular rate/rhythm, normal heart sounds Gastrointestinal/Abdomen Exam: soft, tenderness (to epigastric area), No mass Pelvic Exam: not done Rectal Exam: deferred Back Exam: normal inspection, normal range of motion, No CVA tenderness, No vertebral tenderness Extremity Exam: normal inspection, normal range of motion, pelvis stable Neurologic Exam: alert, oriented x 3, cooperative, normal mood/affect, nml cerebellar function, sensation nml, No motor deficits Skin Exam: normal color, warm, dry SpO2: 97 Oxygen Delivery: Room Air - Course Nursing assessment & vital signs reviewed: Yes Ordered Tests: Medication Summary Discontinued Medications Generic Name Dose Route Start Last Admin Trade Name Freq PRN Reason Stop Dose Admin Al Hydrox/Mg Hydrox/Simethicone Confirm 10/31/17 19:32 Maalox Es 30 Ml Unit Dose Administered 10/31/17 19:33 Dose 30 ml .ROUTE .STK-MED ONE Lidocaine HCl Confirm 10/31/17 19:31 Xylocaine Hcl Viscous * Administered 10/31/17 19:32 Dose 1 ml .ROUTE .STK-MED ONE Lidocaine HCl Confirm 10/31/17 19:34 Xylocaine Hcl Viscous * Administered 10/31/17 19:35 Dose 14 ml .ROUTE .STK-MED ONE Magnesium Hydroxide 45 ml 10/31/17 19:22 10/31/17 19:38 Gi Cocktail 45 Ml (Maalox/Lidocaine) PO 10/31/17 19:23 45 ml STAT ONE Administration Ondansetron HCl 4 mg 10/31/17 19:22 10/31/17 19:38 Zofran Odt 4 Mg PO 10/31/17 19:23 4 mg STAT ONE Administration Ondansetron HCl Confirm 10/31/17 19:30 Zofran Odt 4 Mg Administered 10/31/17 19:31 Dose 4 mg .ROUTE .STK-MED ONE - Progress Progress: improved Progress Note: 10/31/17 19:28 we'll give patient a GI cocktail/Zofran for discomfort. 10/31/17 20:13 States she feels better after treatment Counseled pt/family regarding: diagnosis - Departure Time of Disposition: 20:13 Departure Disposition: Home Clinical Impression: GERD (gastroesophageal reflux disease) Condition: Stable Critical Care Time: No Referrals: ANDRES MASSEY [Primary Care Provider] - Additional Instructions: Takes Zofran for nausea/vomiting. Take rest of your stomach medicine as prescribed. Follow-up with your [employer] sales in 1-2 days. Return for worse abdominal pain, vomiting, dizziness, weakness or any problems Prescriptions: Ondansetron ODT 4 MG [Zofran Odt 4 mg] 4 mg PO Q6H PRN PRN #10 tab.rapdis PRN Reason: Nausea/Vomiting
[2017-10-31] MEDS ORDERED: ZOFRAN ODT 4 MG ONE (19:30)
[2017-10-31] MEDS ORDERED: XYLOCAINE HCl Viscous ONE ×2 (19:31→19:34)
[2017-10-31] MEDS ORDERED: MAALOX ES 30 ML UNIT DOSE ONE (19:32)
[2017-10-31 20:24] VITALS: BP 136/72; PULSE 78; O2SAT 99
== END 2017-10-31 20:25 | disposition home or self-care (01) ==
LOC: ED 19:01
DX: K21.9 Gastro-esophageal reflux disease without esophagitis (principal); Z79.899 Other long term (current) drug therapy
CPT/HCPCS: 99283; Q0162; A9270-GY

== ENCOUNTER 2018-03-22 14:31 | Emergency (ER) | payer MEDICARE ==
--- NOTE | 2018-03-22 15:18 | ERPHSYRPT ---
- History of Present Illness Time Seen by Provider: 03/22/18 14:55 Historian: patient Exam Limitations: no limitations Patient Subjective Stated Complaint: Abdominal pain Triage Nursing Assessment: Patient brought to ER from [facility] via wheelchair for abdominal pain. Patient complains of adominal pain that moved from her umbilicus to her right side. Patient stated she felt a "buldge" move. Patient complains of pain 7/10. Patient's abdomen soft and round with bowel sounds present X4. Patient does have small faded yellow bruise to right side of abdomen where pain is. Patient has hx kidney stones with stent placement twice January 15 and Feb 08. Patient unable to get ahold of urologist Dr. Light in [place]. Physician History: 32 y/o obese white female presents with right upper quadrant abd pain and left lower quadrant abd pain. pt has a left ureteral stent in place since Feb 08 secondary to large ureteral stone and then subsequent postprocedural ureteral tear. pt to have left ureteral stent removed Mar 29, 2018 Timing/Duration: day(s) (2 to 3) Activities at Onset: none Abdominal Pain Onset Location: RUQ, LLQ Pain Radiation: no radiation Severity of Pain-Max: moderate Severity of Pain-Current: moderate Modifying Factors: Improves With: nothing Associated Symptoms: back Previous symptoms: same symptoms as today Allergies/Adverse Reactions: gluten Allergy (Verified 03/22/18 14:53) magnesium citrate Allergy (Verified 03/22/18 14:53) morphine Allergy (Verified 03/22/18 14:53) Rash venom-honey bee [bee venom (honey bee)] Allergy (Verified 03/22/18 14:53) Home Medications: Albuterol 2.5 mg/3 ml Neb [Proventil 2.5 mg/3 ml Neb] 2.5 mg IH DAILY 12/24 [History] Bupropion HCl [Wellbutrin Sr] 150 mg PO DAILY 10/13/16 [History] Fluoxetine HCl [Prozac] 20 mg PO DAILY 10/13/16 [History] Gabapentin 200 mg PO DAILY 10/13/16 [History] Mometasone/Formoterol [Dulera 100 Mcg/5 Mcg Inhaler] 13 gm IH Q4H PRN PRN [History] Pantoprazole Sodium [Protonix] 40 mg PO DAILY 10/13/16 [History] Lurasidone HCl [Latuda] 20 mg PO HS 03/10/17 [History] Gabapentin 100 mg PO HS 10/31/17 [History] Hx Tetanus, Diphtheria Vaccination/Date Given: Yes Hx Influenza Vaccination/Date Given: No Hx Pneumococcal Vaccination/Date Given: No Immunizations Up to Date: Yes - Review of Systems Constitutional: No Symptoms, No Fever, No Chills Eyes: No Symptoms, No Discharge, No Eye Pain Ears, Nose, & Throat: No Symptoms, No Ear Pain, No Tinnitus Respiratory: No Symptoms, No Cough, No Dyspnea, No Stridor, No Wheezing Cardiac: No Symptoms, No Chest Pain, No Palpitations, No Syncope Abdominal/Gastrointestinal: Abdominal Pain, Nausea, No Vomiting, No Diarrhea Genitourinary Symptoms: Dysuria, Flank Pain (bilat), No Frequency, No Hematuria Musculoskeletal: Back Pain, No Deformity, No Fall, No Injury Skin: No Symptoms, No Cellulitis, No Pruritis, No Rash Neurological: No Symptoms, No Gait Changes, No Headache Psychological: No Symptoms, No Alcohol Abuse, No Drug Abuse, No Anxiety Endocrine: No Symptoms, No Polyuria, No Polydipsia Hematologic/Lymphatic: No Symptoms Immunological/Allergic: No Symptoms All Other Systems: Reviewed and Negative - Past Medical History Pertinent Past Medical History: Yes Neurological History: Migraines ENT History: No Pertinent History Cardiac History: Angina, Hypertension Respiratory History: Asthma Endocrine Medical History: Other Musculoskeletal History: Arthritis, Fibromyalgia GI Medical History: GERD, Irritable Bowel History: No Pertinent History Psycho-Social History: Bipolar, Depression, Other Female Reproductive Disorders: No Pertinent History Other Medical History: kidney stones, UTI, EOE - Past Surgical History Past Surgical History: Yes Gastrointestinal: Cholecystectomy Musculoskeletal: Orthopedic Surgery Other Surgical History: cyst removed from tailbone, fusion on neck - Social History Smoking Status: Never smoker Exposure to second hand smoke: Yes Alcohol Use: None Drug Use: none Patient Lives Alone: No Significant Family History: no pertinent family hx - Female History Hx Last Menstrual Period: 03/19/18 Hx Now: No - Nursing Vital Signs Nursing Vital Signs: Initial Vital Signs Temperature 97.7 F 03/22/18 14:41 Pulse Rate 91 H 03/22/18 14:41 Respiratory Rate 18 03/22/18 14:41 Blood Pressure 116/82 03/22/18 14:41 O2 Sat by Pulse Oximetry 95 03/22/18 14:41 Pain Scale Pain Intensity 5 - Physical Exam General Appearance: mild distress, alert, anxiety Eye Exam: PERRL/EOMI, eyes nml inspection Ears, Nose, Throat Exam: normal ENT inspection Neck Exam: normal inspection, non-tender, supple, full range of motion Respiratory Exam: normal breath sounds, lungs clear, airway intact, No chest tenderness, No respiratory distress, No accessory muscle use, No rhonchi, No wheezing, No stridor Cardiovascular Exam: regular rate/rhythm, normal heart sounds, normal peripheral pulses Gastrointestinal/Abdomen Exam: soft, normal bowel sounds, tenderness (right upper quad and left lower), guarding (mild), No rebound Pelvic Exam: not done Rectal Exam: not done Back Exam: normal inspection, normal range of motion, No CVA tenderness, No vertebral tenderness Extremity Exam: normal inspection, normal range of motion, pelvis stable Neurologic Exam: alert, oriented x 3, cooperative, miner helper II-XII nml as tested Skin Exam: normal color, warm, dry Lymphatic Exam: No adenopathy SpO2 Interpretation: normal SpO2: 95 Oxygen Delivery: Room Air - Course Nursing assessment & vital signs reviewed: Yes Ordered Tests: Active Orders 24 hr Category Date Time Status IV Insertion STAT Care 03/22/18 15:28 Active ABDOMEN AND PELVIS W/0 CONTRAS [CT] Stat Exams 03/22/18 15:29 Completed AMYLASE Stat Lab 03/22/18 15:40 Completed CBC W DIFF Stat Lab 03/22/18 15:40 Completed CMP Stat Lab 03/22/18 15:40 Completed HCG QUALITATIVE,SERUM Stat Lab 03/22/18 15:40 Completed LIPASE Stat Lab 03/22/18 15:40 Completed Lactic Acid Stat Lab 03/22/18 15:50 Completed UA W/RFX UR CULTURE Stat Lab 03/22/18 15:28 Uncollected Medication Summary Discontinued Medications Generic Name Dose Route Start Last Admin Trade Name Freq PRN Reason Stop Dose Admin Hydromorphone HCl 1 mg 03/22/18 15:28 03/22/18 16:07 Hydromorphone 1 Mg/Ml Ampule IV 03/22/18 15:29 1 mg STAT ONE Administration Hydromorphone HCl Confirm 03/22/18 15:44 Hydromorphone 1 Mg/Ml Ampule Administered 03/22/18 15:45 Dose 1 mg .ROUTE .STK-MED ONE Sodium Chloride 1,000 mls @ 999 mls/hr 03/22/18 15:28 03/22/18 15:52 Sodium Chloride 0.9% 1000 Ml IV 03/22/18 16:28 999 mls/hr .Q1H1M STA Administration Sodium Chloride Confirm 03/22/18 15:44 Sodium Chloride 0.9% 1000 Ml Administered 03/22/18 15:45 Dose 1,000 mls @ ud .ROUTE .STK-MED ONE Ondansetron HCl 4 mg 03/22/18 15:28 03/22/18 15:51 Zofran 4 Mg/2 Ml Vial IV 03/22/18 15:29 4 mg STAT ONE Administration Ondansetron HCl Confirm 03/22/18 15:44 Zofran 4 Mg/2 Ml Vial Administered 03/22/18 15:45 Dose 4 mg .ROUTE .STK-MED ONE Lab/Rad Data: Laboratory Result Diagrams 03/22/18 15:40 03/22/18 15:40 Laboratory Results 03/22/18 03/22/18 03/22/18 Range/Units 15:50 15:40 15:40 WBC (4.0-10.5) K/mm3 RBC (4.1-5.4) M/mm3 Hgb (12.0-16.0) gm/dl Hct (35-47) % MCV (78-100) fl MCH (26-32) pg MCHC (32-36) g/dl RDW (11.5-14.0) % Plt Count (150-450) K/mm3 MPV (6-9.5) fl Gran % (36.0-66.0) % Eos # (Auto) (0-0.5) Absolute Lymphs (auto) (1.0-4.6) Absolute Monos (auto) (0.0-1.3) Lymphocytes % (24.0-44.0) % Monocytes % (0.0-12.0) % Eosinophils % (0.00-5.0) % Basophils % (0.0-0.4) % Absolute Granulocytes (1.4-6.9) Basophils # (0-0.4) Sodium 141 (137-145) mmol/L Potassium 4.0 (3.5-5.1) mmol/L Chloride 104 (98-107) mmol/L Carbon Dioxide 27 (22-30) mmol/L Anion Gap 13.2 (5-15) MEQ/L BUN 13 (7-17) mg/dL Creatinine 0.68 (0.52-1.04) mg/dL Estimated GFR > 60.0 ML/MIN Glucose 95 (74-106) mg/dL Lactic Acid 1.1 (0.4-2.0) Calcium 9.6 (8.4-10.2) mg/dL Total Bilirubin 0.50 (0.2-1.3) mg/dL AST 23 (14-36) U/L ALT 25 (0-35) U/L Alkaline Phosphatase 76 (38-126) U/L Serum Total Protein 8.3 H (6.3-8.2) g/dL Albumin 4.7 (3.5-5.0) g/dL Amylase 57 (30-110) U/L Lipase 61 (23-300) U/L Serum , Qual NEGATIVE (Negative) 03/22/18 Range/Units 15:40 WBC 7.1 (4.0-10.5) K/mm3 RBC 4.14 (4.1-5.4) M/mm3 Hgb 13.2 (12.0-16.0) gm/dl Hct 39.1 (35-47) % MCV 94.4 (78-100) fl MCH 31.9 (26-32) pg MCHC 33.8 (32-36) g/dl RDW 14.2 H (11.5-14.0) % Plt Count 283 (150-450) K/mm3 MPV 9.7 H (6-9.5) fl Gran % 61.3 (36.0-66.0) % Eos # (Auto) 0.12 (0-0.5) Absolute Lymphs (auto) 2.19 (1.0-4.6) Absolute Monos (auto) 0.44 (0.0-1.3) Lymphocytes % 30.7 (24.0-44.0) % Monocytes % 6.2 (0.0-12.0) % Eosinophils % 1.7 (0.00-5.0) % Basophils % 0.1 (0.0-0.4) % Absolute Granulocytes 4.38 (1.4-6.9) Basophils # 0.01 (0-0.4) Sodium (137-145) mmol/L Potassium (3.5-5.1) mmol/L Chloride (98-107) mmol/L Carbon Dioxide (22-30) mmol/L Anion Gap (5-15) MEQ/L BUN (7-17) mg/dL Creatinine (0.52-1.04) mg/dL Estimated GFR ML/MIN Glucose (74-106) mg/dL Lactic Acid (0.4-2.0) Calcium (8.4-10.2) mg/dL Total Bilirubin (0.2-1.3) mg/dL AST (14-36) U/L ALT (0-35) U/L Alkaline Phosphatase (38-126) U/L Serum Total Protein (6.3-8.2) g/dL Albumin (3.5-5.0) g/dL Amylase (30-110) U/L Lipase (23-300) U/L Serum , Qual (Negative) ct scan abd/pelvis-no acute process. left ureteral stent in appropriate position. no left hydronephrosis, no left hydroureter - Progress Progress: improved, pain not gone completely, re-examined Progress Note: 03/22/18 16:05 pt states she can take dilaudid without issues. Counseled pt/family regarding: lab results, diagnosis, need for follow-up, rad results - Departure Time of Disposition: 17:39 Departure Disposition: Home Clinical Impression: Abdominal pain Condition: Stable Critical Care Time: No Referrals: ANDRES MASSEY [Primary Care Provider] - Additional Instructions: follow up with urologist and prescribing physician tomorrow. take all your medications as prescribed. Prescriptions: Hydrocodone/APAP 5/325 [[place] 5/325 mg] 1 each PO Q12H PRN PRN #5 tablet MDD 2 PRN Reason: Pain
[2018-03-22] MEDS ORDERED: Hydromorphone 1 mg/ml Ampule IV ONE (15:28)
[2018-03-22] MEDS ORDERED: Zofran 4 MG/2 ML VIAL IV ONE (15:28)
[2018-03-22] MEDS ORDERED: Sodium Chloride 0.9% 1000 ML 1,000 ML IV STA (15:28)
[2018-03-22] MEDS ORDERED: Hydromorphone 1 mg/ml Ampule ONE (15:44)
[2018-03-22] MEDS ORDERED: Sodium Chloride 0.9% 1000 ML 1,000 ML ONE (15:44)
[2018-03-22] MEDS ORDERED: Zofran 4 MG/2 ML VIAL ONE (15:44)
[2018-03-22 15:48] LABS: BASOPHIL % 0.1 % (0.0-0.4); Basophil (Absolute #) 0.01 (0-0.4); Eosinophil % 1.7 % (0.00-5.0); Eosinophil (Absolute #) 0.12 (0-0.5); Granulocyte Absolute (ANC) 4.38 (1.4-6.9); Granulocytes % 61.3 % (36.0-66.0); Hematocrit 39.1 % (35-47); Hemoglobin 13.2 gm/dl (12.0-16.0); Lymphocyte (Absolute #) 2.19 (1.0-4.6); Lymphocytes % 30.7 % (24.0-44.0); Mean Cell Volume 94.4 fl (78-100); Mean Corpuscular Hemoglobin 31.9 pg (26-32); Mean Corpuscular Hgb Concent. 33.8 g/dl (32-36); Mean Platelet Volume 9.7 fl (6-9.5); Monocyte (Absolute #) 0.44 (0.0-1.3); Monocytes % 6.2 % (0.0-12.0); Platelet Count 283 K/mm3 (150-450); Red Blood Count 4.14 M/mm3 (4.1-5.4); Red Cell Distribution Width 14.2 % (11.5-14.0); White Blood Count 7.1 K/mm3 (4.0-10.5)
[2018-03-22 16:01] LABS: ALBUMIN 4.7 g/dL (3.5-5.0); ALKALINE PHOSPHATASE 76 U/L (38-126); AMYLASE 57 U/L (30-110); ANION GAP 13.2 MEQ/L (5-15); BLOOD UREA NITROGEN 13 mg/dL (7-17); CHLORIDE 104 mmol/L (98-107); Calcium 9.6 mg/dL (8.4-10.2); Carbon Dioxide 27 mmol/L (22-30); Creatinine 1 0.68 mg/dL (0.52-1.04); Glucose 95 mg/dL (74-106); LIPASE 61 U/L (23-300); SGOT/AST 23 U/L (14-36); SGPT/ALT 25 U/L (0-35); SODIUM 141 mmol/L (137-145); Total Protein 8.3 g/dL (6.3-8.2)
--- NOTE | 2018-03-22 17:08 | XRAY ---
Indication: Right abdominal pain. Previous left renal stone. Multiple contiguous axial images obtained through the abdomen and pelvis without contrast as ordered. Comparison: March 10, 2017. Lung bases demonstrate stable 7 mm noncalcified nodule in the right posterior gutter. No infiltrate or effusion. Heart is not enlarged. Noncontrasted stomach and bowel loops appear nonobstructed. Normal appendix. New left-sided double-J ureteral stent catheter without hydronephrosis or hydroureter. Stable nonobstructing right renal punctate calculus. Again previous cholecystectomy. Remaining liver, pancreas, spleen, adrenal glands, ureters, bladder, uterus, and aorta appear unremarkable for noncontrast exam. Osseous structures intact. No ventral or inguinal hernias. Impression: 1. New left double-J ureteral stent catheter in good position. No hydronephrosis/hydroureter to suggest obstruction. Stable nonobstructing right renal micro-calculus. 2. No acute intra-abdominal/pelvic abnormalities on this noncontrast exam. 3. Stable benign-appearing right lung base noncalcified micronodule. CTDI 23.68
[2018-03-22 18:14] VITALS: BP 114/81; PULSE 62; O2SAT 96
== END 2018-03-22 18:14 | disposition home or self-care (01) ==
LOC: ED 14:31
DX: R10.11 Right upper quadrant pain (principal); R10.32 Left lower quadrant pain; Z87.442 Personal history of urinary calculi; Z79.899 Other long term (current) drug therapy; Z98.890 Other specified postprocedural states
CPT/HCPCS: 36000; 36415; 74176; 80053; 82150; 83605; 83690; 84703; 85025; 96360; 96374; 96375; 99284; J1170; J2405

== ENCOUNTER 2018-08-19 09:37 | Observation (INO) | payer MEDICARE ==
--- NOTE | 2018-08-19 10:38 | ERPHSYRPT ---
- History of Present Illness Time Seen by Provider: 08/19/18 10:37 Historian: patient Exam Limitations: no limitations Patient Subjective Stated Complaint: PT STATES SHE WAS IN [facility] LAST WEEK, ADMITTED FOR 4 DAYS FOR NAUSEA/VOMITING. PT STATES SHE WAS DC'D 3 DAYS AGO , STARTED VOMITING AGAIN THIS AM. VOMIT X 4 TODAY, NO RELIEF FROM ZOFRAN. PT REPORTS REGULAR BM YESTERDAY. PT SEES PAGE TECHNICIAN DR. PIEDRA WITH [facility] Triage Nursing Assessment: PINK/WARM/DRY, RESP EASY, A&OX4, STEADY GAIT, ABD SOFT, NO VOMITING IN TRIAGE. Physician History: The patient is an obese 32-year-old female complaining of sudden onset of vomiting this morning. She also has some right-sided abdominal pain. More than one week ago she had episodes of vomiting there were getting worse. Last Monday (one week ago) she went to the [facility] ER and was admitted. She was in the hospital until . She states they were going to transfer her immediately to [facility] but there were no beds available. She was feeling better at discharge. She had advanced her diet at home. This morning after eating, she vomited numerous times. She vomiting too much to drive back to [facility] this morning. She has a specialist at [facility]. When she called for her specialist, she was told to go to the nearest ER. She has a past medical history of bipolar, asthma, IBS, eosinophilic esophagitis, and cholecystectomy. Timing/Duration: today Activities at Onset: none Quality: aching Abdominal Pain Onset Location: RUQ Pain Radiation: no radiation Severity of Pain-Max: moderate Severity of Pain-Current: mild Modifying Factors: Improves With: eating, vomiting Associated Symptoms: nausea, vomiting Previous symptoms: same symptoms as today, recently seen, recent hospitalization , recently treated Allergies/Adverse Reactions: gluten Allergy (Verified 03/22/18 14:53) magnesium citrate Allergy (Verified 03/22/18 14:53) morphine Allergy (Verified 03/22/18 14:53) Rash venom-honey bee [bee venom (honey bee)] Allergy (Verified 03/22/18 14:53) Home Medications: Albuterol 2.5 mg/3 ml Neb [Proventil 2.5 mg/3 ml Neb] 2.5 mg IH DAILY 12/24 [History] Bupropion HCl [Wellbutrin Sr] 150 mg PO DAILY 10/13/16 [History] Gabapentin 200 mg PO DAILY 10/13/16 [History] Mometasone/Formoterol [Dulera 100 Mcg/5 Mcg Inhaler] 13 gm IH Q4H PRN PRN [History] Pantoprazole Sodium [Protonix] 40 mg PO DAILY 10/13/16 [History] Lurasidone HCl [Latuda] 20 mg PO HS 03/10/17 [History] Gabapentin 100 mg PO HS 10/31/17 [History] Hx Tetanus, Diphtheria Vaccination/Date Given: No Hx Influenza Vaccination/Date Given: Yes Hx Pneumococcal Vaccination/Date Given: No Immunizations Up to Date: Yes - Review of Systems Constitutional: No Fever, No Chills Eyes: No Symptoms Ears, Nose, & Throat: No Symptoms Respiratory: No Cough, No Dyspnea Cardiac: No Chest Pain, No Edema, No Syncope Abdominal/Gastrointestinal: Abdominal Pain, Nausea, Vomiting Genitourinary Symptoms: No Dysuria Musculoskeletal: No Back Pain, No Neck Pain Skin: No Rash Neurological: No Dizziness, No Focal Weakness, No Sensory Changes Psychological: No Symptoms Endocrine: No Symptoms Hematologic/Lymphatic: No Symptoms Immunological/Allergic: No Symptoms All Other Systems: Reviewed and Negative - Past Medical History Pertinent Past Medical History: Yes Neurological History: No Pertinent History ENT History: No Pertinent History Cardiac History: Angina, Hypertension Respiratory History: Asthma, Bronchitis Endocrine Medical History: No Pertinent History Musculoskeletal History: Arthritis GI Medical History: GERD, Irritable Bowel History: No Pertinent History Psycho-Social History: Bipolar, Depression, Other Female Reproductive Disorders: No Pertinent History Other Medical History: kidney stones, UTI, EOE - Past Surgical History Past Surgical History: Yes Neuro Surgical History: No Pertinent History Cardiac: No Pertinent History Respiratory: No Pertinent History Gastrointestinal: Cholecystectomy Genitourinary: No Pertinent History Musculoskeletal: Orthopedic Surgery Female Surgical History: No Pertinent History Other Surgical History: cyst removed from tailbone, fusion on neck - Social History Smoking Status: Never smoker Exposure to second hand smoke: Yes Alcohol Use: None Drug Use: none Patient Lives Alone: Yes Significant Family History: no pertinent family hx - Female History Hx Last Menstrual Period: 08/06/18 Hx Now: No - Nursing Vital Signs Nursing Vital Signs: Initial Vital Signs Temperature 98.2 F 08/19/18 09:52 Pulse Rate 98 H 08/19/18 09:52 Respiratory Rate 18 08/19/18 09:52 Blood Pressure 144/92 08/19/18 09:52 O2 Sat by Pulse Oximetry 95 08/19/18 09:52 Pain Scale Pain Intensity 8 - Physical Exam General Appearance: mild distress, obese Eye Exam: PERRL/EOMI, eyes nml inspection Ears, Nose, Throat Exam: normal ENT inspection, pharynx normal, moist mucous membranes Neck Exam: normal inspection Respiratory Exam: normal breath sounds, lungs clear, No respiratory distress Cardiovascular Exam: regular rate/rhythm, normal heart sounds Gastrointestinal/Abdomen Exam: normal bowel sounds, tenderness (RUQ) Pelvic Exam: not done Rectal Exam: not done Back Exam: normal inspection, normal range of motion, No CVA tenderness, No vertebral tenderness Extremity Exam: normal inspection, normal range of motion, pelvis stable Neurologic Exam: alert, oriented x 3, cooperative, normal mood/affect, nml cerebellar function, sensation nml, No motor deficits Skin Exam: normal color, warm, dry SpO2 Interpretation: normal SpO2: 95 O2 Delivery: Room Air - CT Exams Abdomen/Pelvis CT Interpretation: Tele-radiologist Report (per Dr Osborne), Normal Appendix, Other (5 mm left proximal ureteral stone vs gonadal vain phleboltith without hydronephrosis) Ordered Tests: Active Orders 24 hr Category Date Time Status Clean Catch Urine Specimen STAT Care 08/19/18 10:50 Active IV Insertion STAT Care 08/19/18 10:50 Active ABDOMEN AND PELVIS W/0 CONTRAS [CT] Stat Exams 08/19/18 10:51 Taken AMYLASE Stat Lab 08/19/18 10:20 Completed CBC W DIFF Stat Lab 08/19/18 10:20 Completed CMP Stat Lab 08/19/18 10:20 Completed CULTURE,URINE Stat Lab 08/19/18 12:00 Received HCG QUALITATIVE,SERUM Stat Lab 08/19/18 10:20 Completed LIPASE Stat Lab 08/19/18 10:20 Completed Lactic Acid Stat Lab 08/19/18 11:14 Completed UA W/RFX UR CULTURE Stat Lab 08/19/18 12:00 Completed Urine Triage Profile Stat Lab 08/19/18 12:00 Completed Medication Summary Discontinued Medications Generic Name Dose Route Start Last Admin Trade Name Freq PRN Reason Stop Dose Admin Famotidine 20 mg 08/19/18 10:50 08/19/18 11:14 Pepcid 20 Mg Vial IV 08/19/18 10:51 20 mg STAT ONE Administration Famotidine Confirm 08/19/18 11:06 Pepcid 20 Mg Vial Administered 08/19/18 11:07 Dose 20 mg IV .STK-MED ONE Hydromorphone HCl 0.5 mg 08/19/18 10:50 08/19/18 11:12 Hydromorphone 1 Mg/Ml Ampule IV 08/19/18 10:51 0.5 mg STAT ONE Administration Hydromorphone HCl Confirm 08/19/18 11:06 Hydromorphone 1 Mg/Ml Ampule Administered 08/19/18 11:07 Dose 1 mg .ROUTE .STK-MED ONE Hydromorphone HCl Confirm 08/19/18 11:09 Hydromorphone 1 Mg/Ml Ampule Administered 08/19/18 11:10 Dose 1 mg .ROUTE .STK-MED ONE Sodium Chloride 1,000 mls @ 999 mls/hr 08/19/18 10:50 08/19/18 13:17 Sodium Chloride 0.9% 1000 Ml IV 08/19/18 11:50 Infused .Q1H1M STA Infusion Sodium Chloride Confirm 08/19/18 11:07 Sodium Chloride 0.9% 1000 Ml Administered 08/19/18 11:08 Dose 1,000 mls @ ud .ROUTE .STK-MED ONE Ondansetron HCl 4 mg 08/19/18 10:50 08/19/18 11:14 Zofran 4 Mg/2 Ml Vial IV 08/19/18 10:51 4 mg STAT ONE Administration Ondansetron HCl Confirm 08/19/18 11:06 Zofran 4 Mg/2 Ml Vial Administered 08/19/18 11:07 Dose 4 mg .ROUTE .STK-MED ONE Lab/Rad Data: Laboratory Result Diagrams 08/19/18 10:20 08/19/18 10:20 Laboratory Results 08/19/18 08/19/18 08/19/18 Range/Units 12:00 12:00 11:14 WBC (4.0-10.5) K/mm3 RBC (4.1-5.4) M/mm3 Hgb (12.0-16.0) gm/dl Hct (35-47) % MCV (78-100) fl MCH (26-32) pg MCHC (32-36) g/dl RDW (11.5-14.0) % Plt Count (150-450) K/mm3 MPV (6-9.5) fl Gran % (36.0-66.0) % Eos # (Auto) (0-0.5) Absolute Lymphs (auto) (1.0-4.6) Absolute Monos (auto) (0.0-1.3) Lymphocytes % (24.0-44.0) % Monocytes % (0.0-12.0) % Eosinophils % (0.00-5.0) % Basophils % (0.0-0.4) % Absolute Granulocytes (1.4-6.9) Basophils # (0-0.4) Sodium (137-145) mmol/L Potassium (3.5-5.1) mmol/L Chloride (98-107) mmol/L Carbon Dioxide (22-30) mmol/L Anion Gap (5-15) MEQ/L BUN (7-17) mg/dL Creatinine (0.52-1.04) mg/dL Estimated GFR ML/MIN Glucose (74-106) mg/dL Lactic Acid 1.3 (0.4-2.0) Calcium (8.4-10.2) mg/dL Total Bilirubin (0.2-1.3) mg/dL AST (14-36) U/L ALT (0-35) U/L Alkaline Phosphatase (38-126) U/L Serum Total Protein (6.3-8.2) g/dL Albumin (3.5-5.0) g/dL Amylase (30-110) U/L Lipase (23-300) U/L Serum , Qual (Negative) Urine Color YELLOW (YELLOW) Urine Appearance SLIGHTLY CLOUDY (CLEAR) Urine pH 6.0 (5-6) Ur Specific Pease 1.026 (1.005-1.025) Urine Protein 30 (Negative) Urine Ketones NEGATIVE (NEGATIVE) Urine Blood SMALL (0-5) Amandeep/ul Urine Nitrite NEGATIVE (NEGATIVE) Urine Bilirubin NEGATIVE (NEGATIVE) Urine Urobilinogen NEGATIVE (0-1) mg/dL Ur Leukocyte Esterase TRACE (NEGATIVE) Urine WBC (Auto) 3-5 (0-5) /HPF Urine RBC (Auto) 11-15 (0-2) /HPF U Epithel Cells (Auto) RARE (FEW) /HPF Urine Bacteria (Auto) RARE (NEGATIVE) /HPF Urine Mucus (Auto) SLIGHT (NEGATIVE) /HPF Urine Culture Reflexed YES (NO) Urine Glucose NEGATIVE (NEGATIVE) mg/dL Urine Opiates Level NEGATIVE (NEGATIVE) Ur Methadone NEGATIVE (NEGATIVE) Urine Barbiturates NEGATIVE (NEGATIVE) Ur Phencyclidine (PCP) NEGATIVE (NEGATIVE) Urine Amphetamine NEGATIVE (NEGATIVE) U Benzodiazepine Level NEGATIVE (NEGATIVE) Urine Cocaine NEGATIVE (NEGATIVE) Urine Marijuana (THC) NEGATIVE (NEGATIVE) 08/19/18 08/19/18 08/19/18 Range/Units 10:20 10:20 10:20 WBC 10.2 (4.0-10.5) K/mm3 RBC 4.47 (4.1-5.4) M/mm3 Hgb 13.9 (12.0-16.0) gm/dl Hct 41.8 (35-47) % MCV 93.5 (78-100) fl MCH 31.1 (26-32) pg MCHC 33.3 (32-36) g/dl RDW 14.1 H (11.5-14.0) % Plt Count 246 (150-450) K/mm3 MPV 10.6 H (6-9.5) fl Gran % 87.4 H (36.0-66.0) % Eos # (Auto) 0.07 (0-0.5) Absolute Lymphs (auto) 0.70 L (1.0-4.6) Absolute Monos (auto) 0.50 (0.0-1.3) Lymphocytes % 6.9 L (24.0-44.0) % Monocytes % 4.9 (0.0-12.0) % Eosinophils % 0.7 (0.00-5.0) % Basophils % 0.1 (0.0-0.4) % Absolute Granulocytes 8.87 H (1.4-6.9) Basophils # 0.01 (0-0.4) Sodium 141 (137-145) mmol/L Potassium 3.4 L (3.5-5.1) mmol/L Chloride 104 (98-107) mmol/L Carbon Dioxide 26 (22-30) mmol/L Anion Gap 13.4 (5-15) MEQ/L BUN 13 (7-17) mg/dL Creatinine 0.63 (0.52-1.04) mg/dL Estimated GFR > 60.0 ML/MIN Glucose 100 (74-106) mg/dL Lactic Acid (0.4-2.0) Calcium 9.3 (8.4-10.2) mg/dL Total Bilirubin 0.70 (0.2-1.3) mg/dL AST 23 (14-36) U/L ALT 40 H (0-35) U/L Alkaline Phosphatase 81 (38-126) U/L Serum Total Protein 8.2 (6.3-8.2) g/dL Albumin 4.4 (3.5-5.0) g/dL Amylase 61 (30-110) U/L Lipase 85 (23-300) U/L Serum , Qual NEGATIVE (Negative) Urine Color (YELLOW) Urine Appearance (CLEAR) Urine pH (5-6) Ur Specific Pease (1.005-1.025) Urine Protein (Negative) Urine Ketones (NEGATIVE) Urine Blood (0-5) Amandeep/ul Urine Nitrite (NEGATIVE) Urine Bilirubin (NEGATIVE) Urine Urobilinogen (0-1) mg/dL Ur Leukocyte Esterase (NEGATIVE) Urine WBC (Auto) (0-5) /HPF Urine RBC (Auto) (0-2) /HPF U Epithel Cells (Auto) (FEW) /HPF Urine Bacteria (Auto) (NEGATIVE) /HPF Urine Mucus (Auto) (NEGATIVE) /HPF Urine Culture Reflexed (NO) Urine Glucose (NEGATIVE) mg/dL Urine Opiates Level (NEGATIVE) Ur Methadone (NEGATIVE) Urine Barbiturates (NEGATIVE) Ur Phencyclidine (PCP) (NEGATIVE) Urine Amphetamine (NEGATIVE) U Benzodiazepine Level (NEGATIVE) Urine Cocaine (NEGATIVE) Urine Marijuana (THC) (NEGATIVE) - Progress Progress: improved Progress Note: 08/19/18 14:[address] Deacon Piedra at [facility]. Recommends IV fluids, zofran, and phenergan with no eating or very restricted diet. Will accept to [facility] through hospitalist if we desire. Discussed with Dr.: Chicho (Chicho for Dr Massey) Counseled pt/family regarding: lab results, diagnosis, rad results - Departure Time of Disposition: 14:10 Departure Disposition: Observation (Per Dr Valentino for Dr Massey.) Clinical Impression: Vomiting Condition: Stable Critical Care Time: No Referrals: ANDRES MASSEY [Primary Care Provider] -
[2018-08-19] MEDS ORDERED: Zofran 4 MG/2 ML VIAL IV ONE ×2 (10:50→13:23)
[2018-08-19] MEDS ORDERED: Sodium Chloride 0.9% 1000 ML 1,000 ML IV STA (10:50)
[2018-08-19] MEDS ORDERED: Pepcid 20 MG VIAL IV ONE ×2 (10:50→11:06)
[2018-08-19] MEDS ORDERED: Hydromorphone 1 mg/ml Ampule IV ONE (10:50)
[2018-08-19 11:01] LABS: BASOPHIL % 0.1 % (0.0-0.4); Basophil (Absolute #) 0.01 (0-0.4); Eosinophil % 0.7 % (0.00-5.0); Eosinophil (Absolute #) 0.07 (0-0.5); Granulocyte Absolute (ANC) 8.87 (1.4-6.9); Granulocytes % 87.4 % (36.0-66.0); Hematocrit 41.8 % (35-47); Hemoglobin 13.9 gm/dl (12.0-16.0); Lymphocytes % 6.9 % (24.0-44.0); Mean Cell Volume 93.5 fl (78-100); Mean Corpuscular Hemoglobin 31.1 pg (26-32); Mean Corpuscular Hgb Concent. 33.3 g/dl (32-36); Mean Platelet Volume 10.6 fl (6-9.5); Monocytes % 4.9 % (0.0-12.0); Platelet Count 246 K/mm3 (150-450); Red Blood Count 4.47 M/mm3 (4.1-5.4); Red Cell Distribution Width 14.1 % (11.5-14.0); White Blood Count 10.2 K/mm3 (4.0-10.5)
[2018-08-19] MEDS ORDERED: Zofran 4 MG/2 ML VIAL ONE ×2 (11:06→13:28)
[2018-08-19] MEDS ORDERED: Hydromorphone 1 mg/ml Ampule ONE ×2 (11:06→11:09)
[2018-08-19] MEDS ORDERED: Sodium Chloride 0.9% 1000 ML 1,000 ML ONE (11:07)
[2018-08-19 11:11] LABS: ALBUMIN 4.4 g/dL (3.5-5.0); ALKALINE PHOSPHATASE 81 U/L (38-126); AMYLASE 61 U/L (30-110); ANION GAP 13.4 MEQ/L (5-15); BLOOD UREA NITROGEN 13 mg/dL (7-17); CHLORIDE 104 mmol/L (98-107); Calcium 9.3 mg/dL (8.4-10.2); Carbon Dioxide 26 mmol/L (22-30); Creatinine 1 0.63 mg/dL (0.52-1.04); Glucose 100 mg/dL (74-106); LIPASE 85 U/L (23-300); Potassium 3.4 mmol/L (3.5-5.1); SGOT/AST 23 U/L (14-36); SGPT/ALT 40 U/L (0-35); SODIUM 141 mmol/L (137-145); Total Protein 8.2 g/dL (6.3-8.2)
[2018-08-19 12:12] LABS: Appearance SLIGHTLY CLOUDY (CLEAR); Bacteria RARE /HPF (NEGATIVE); Bilirubin NEGATIVE (NEGATIVE); Blood SMALL Ery/ul (0-5); Epithelial Cells RARE /HPF (FEW); Glucose NEGATIVE (NEGATIVE); Ketones NEGATIVE (NEGATIVE); Leukocyte Esterase TRACE (NEGATIVE); Mucus SLIGHT /HPF (NEGATIVE); Nitrite NEGATIVE (NEGATIVE); Protein,Urine Dip 30 (Negative); Specific Gravity 1.026 (1.005-1.025); Urobilinogen NEGATIVE mg/dL (0-1)
[2018-08-19 12:16] LABS: Amphetamine,Urine NEGATIVE (NEGATIVE); Barbiturate,Urine NEGATIVE (NEGATIVE); Benzodiazepine,Urine NEGATIVE (NEGATIVE); Cocaine,Urine NEGATIVE (NEGATIVE); Methadone,Urine NEGATIVE (NEGATIVE); Opiate,Urine NEGATIVE (NEGATIVE); PCP,Urine NEGATIVE (NEGATIVE); THC,Urine NEGATIVE (NEGATIVE)
[2018-08-19] MEDS ORDERED: TYLENOL 325 MG PO PRN (14:35)
[2018-08-19] MEDS ORDERED: Phenergan 25 MG INJ IM PRN (14:35)
[2018-08-19] MEDS ORDERED: DILAUDID 2 MG INJECTION IV PRN (16:15)
[2018-08-19] MEDS: PROTONIX 40 MG IV IV SCH (17:27)
[2018-08-19] MEDS: Zofran 4 MG/2 ML VIAL IV PRN ×2 (17:29→23:22)
[2018-08-19] MEDS: Sodium Chloride 0.9% 1000 ML 1,000 ML IV SCH (19:54)
[2018-08-19 20:20] LABS: INFLUENZA A NEGATIVE (NEGATIVE); INFLUENZA B NEGATIVE (NEGATIVE); RESPIRATORY SYNCTIAL VIRUS NEGATIVE (Negative)
[2018-08-19 20:30] LABS: C. difficile toxin A/B NEGATIVE (NEGATIVE); Campylobacter NEGATIVE (NEGATIVE); Cyclospora cayentanensis NEGATIVE (NEGATIVE); Entamoeaba histolytica NEGATIVE (NEGATIVE); Enteroaggregative E.coli NEGATIVE (NEGATIVE); Giardia lamblia NEGATIVE (NEGATIVE); Salmonella NEGATIVE (NEGATIVE); Shiga-like toxin prod.E.coli NEGATIVE (NEGATIVE); Vibrio NEGATIVE (NEGATIVE)
[2018-08-19 20:31] LABS: Adenovirus F 40/41 NEGATIVE (NEGATIVE); Astrovirus NEGATIVE (NEGATIVE); Rotavirus A NEGATIVE (NEGATIVE); Sapovirus NEGATIVE (NEGATIVE)
--- NOTE | 2018-08-19 20:32 | XRAY ---
Indication: Nausea and vomiting. Multiple contiguous axial images obtained through the abdomen and pelvis without contrast as ordered. Comparison: March 22, [address] [facility] August 12, 2018. Lung bases demonstrates stable right posterior calcified granuloma. No infiltrate or effusion. Heart is not enlarged. Noncontrasted stomach and bowel loops appear nonobstructed. Normal appendix. Stable nonobstructing punctate right renal calculus and cholecystectomy clips. Also stable 3-4 mm left phlebolith approximately L3 level. No hydronephrosis, hydroureter, or perinephric fluid. No free fluid/air. Remaining liver, pancreas, spleen, adrenal glands, kidneys, right ureter, bladder, uterus, and aorta appear unremarkable for noncontrast exam. Osseous structures intact. Impression: 1. Stable nonobstructing right renal microvascular calculus. 2. Remaining CT abdomen/pelvis without contrast exam is negative. Comment: Preliminary interpretation was made by [facility]. No critical discrepancy. CTDI 23.68
[2018-08-19] MEDS: Pepcid 20 MG VIAL IV SCH (21:48)
[2018-08-19] MEDS: PATIENT OWN MEDICATION PO SCH (21:48)
[2018-08-20 05:55] LABS: BASOPHIL % 0.2 % (0.0-0.4); Basophil (Absolute #) 0.01 (0-0.4); Eosinophil % 0.6 % (0.00-5.0); Eosinophil (Absolute #) 0.03 (0-0.5); Granulocyte Absolute (ANC) 2.96 (1.4-6.9); Granulocytes % 60.9 % (36.0-66.0); Hematocrit 37.1 % (35-47); Hemoglobin 11.9 gm/dl (12.0-16.0); Lymphocyte (Absolute #) 1.39 (1.0-4.6); Lymphocytes % 28.6 % (24.0-44.0); Mean Cell Volume 96.4 fl (78-100); Mean Corpuscular Hemoglobin 30.9 pg (26-32); Mean Corpuscular Hgb Concent. 32.1 g/dl (32-36); Mean Platelet Volume 10.5 fl (6-9.5); Monocyte (Absolute #) 0.47 (0.0-1.3); Monocytes % 9.7 % (0.0-12.0); Platelet Count 192 K/mm3 (150-450); Red Blood Count 3.85 M/mm3 (4.1-5.4); White Blood Count 4.9 K/mm3 (4.0-10.5)
[2018-08-20 06:02] LABS: BLOOD UREA NITROGEN 9 mg/dL (7-17); CHLORIDE 106 mmol/L (98-107); Calcium 8.8 mg/dL (8.4-10.2); Carbon Dioxide 26 mmol/L (22-30); Creatinine 1 0.69 mg/dL (0.52-1.04); Glucose 84 mg/dL (74-106); Potassium 3.3 mmol/L (3.5-5.1); SODIUM 139 mmol/L (137-145)
[2018-08-20] MEDS: Sodium Chloride 0.9% 1000 ML 1,000 ML IV SCH ×2 (06:24→16:30)
[2018-08-20] MEDS ORDERED: MOMETASONE IH PRN (07:04)
[2018-08-20] MEDS ORDERED: FORMOTEROL IH PRN (07:04)
[2018-08-20] MEDS ORDERED: DILAUDID 2 MG INJECTION IV PRN (09:04)
[2018-08-20] MEDS: Pepcid 20 MG VIAL IV SCH ×2 (09:18→22:42)
[2018-08-20] MEDS: PROTONIX 40 MG IV IV SCH (09:18)
[2018-08-20] MEDS: POTASSIUM CHLORIDE 20 mEq IN WATER 100ML 20 MEQ/100 ML BAG IV SCH ×2 (09:20→13:23)
--- NOTE | 2018-08-20 09:45 | HP ---
HISTORY OF PRESENT ILLNESS: This is a 32 year-old patient of mine with history of irritable bowel syndrome that she follows with Dr. Deacon Thompson at who was recently was at [facility] with ileus. She reports she was discharged on after being able to tolerate diet and then started having vomiting. On Monday she reported she had vomited four times. She also reports diarrhea without any blood although she reports she did have blood in her stool when she was at [facility]. She felt like she was getting dehydrated and called the on-call doctor for her wall insulation sprayer who recommended that she come to the hospital for evaluation. She was seen by emergency room doctor and admitted for IV fluids and further work up. She had a GI panel that revealed she was positive for Norovirus. The patient reports her pain was in the epigastric area. It is better now but she still reports some nausea. She has been getting IV pain medicine. She denies any fever. 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 No sick contacts. She uses city water. No travel. She has eaten out. REVIEW OF SYSTEMS: She denies any dysuria. She reports her urine is dark. She denies any chest pain. No dyspnea. PAST MEDICAL HISTORY: Seasonal allergies. Irritable bowel syndrome. Gastroesophageal reflux. History of eosinophilic esophagitis. Asthma. Depression for which she sees [facility] for. Bipolar disorder. Headaches. Migraines. Fibromyalgia. PAST SURGICAL HISTORY: Cholecystectomy. Kidney stone surgery in 2007. Fusion of her C6-C7 by Dr. Murphy in 2015. Upper GI by Dr. Thompson that revealed the eosinophilic esophagitis February 2018. Left ureteroscopy with stent placement. Colonoscopy 2013. Pilonidal cyst 2008. HOME MEDICATIONS: Dulera, Latuda 20 mg p.o. q.h.s., Lyrica 50 mg p.o. daily, pantoprazole 40 mg daily, Albuterol 2.5 mg nebulized every four hours as needed, Wellbutrin 150 mg p.o. daily, Zofran 4 mg every six hours as needed. ALLERGIES: BARLEY, WHEAT, CORN, GLUTEN, MAGNESIUM CITRATE, MORPHINE. BEE VENOM. SOCIAL HISTORY: She is and lives with her daughter. No alcohol use. No tobacco use. FAMILY HISTORY: Noncontributory. PHYSICAL EXAMINATION: VITAL SIGNS: Temperature current 97.9F, temperature max 99.1F, heart rate 69 to 87, respiratory rate 16 to 18, blood pressure 116 to 121 over 57 to 70, weight 123 kg. Oxygen saturation 94 to 95%. GENERAL: The patient is a pleasant talkative lady lying in bed. She does fall asleep easily. CVS: She has a regular rate and rhythm. No murmurs, gallops or rubs. CHEST: Clear to auscultation bilaterally. ABDOMEN: Mild tenderness in right lower quadrant. No guarding. No rigidity. Normal bowel sounds. EXTREMITIES: No clubbing, cyanosis or edema. SKIN: Warm, dry and intact. LABORATORY DATA AND TESTS: Potassium was 3.3. Hemoglobin 11.9. On admission her GI panel was positive for Norovirus. Urine tox negative. The rest of the stool panel was negative. UA revealed 11 to 15 red blood cells, 3 to 5 white blood cells. Urine culture was read as mixed georges. ASSESSMENT AND PLAN: 1) ABDOMINAL PAIN: Most likely related to Norovirus. The patient reports she would like to try clear liquid diet this morning. Will try to advance her diet as tolerated. 2) NOROVIRUS: Will continue with IV fluids and supportive care. 3) HYPOKALEMIA: Will plan to give her potassium chloride through her IV today. She has been nauseated and has had some vomiting. 4) VOMITING: Will continue with Zofran as needed. 5) HISTORY OF IRRITABLE BOWEL SYNDROME: She will need to follow up with her wall insulation sprayer as an outpatient. 6) HISTORY OF BIPOLAR DISORDER: Will continue with her home medications. 7) DEEP VENOUS THROMBOSIS PROPHYLAXIS: Will use Lovenox.
[2018-08-20] MEDS ORDERED: Wellbutrin SR 150 MG PO SCH (10:00)
[2018-08-20] MEDS ORDERED: Lyrica 50MG PO SCH (10:00)
[2018-08-20] MEDS ORDERED: PROVENTIL 2.5 MG/3 ML NEB IH SCH (10:00)
[2018-08-20] MEDS ORDERED: ENOXAPARIN SODIUM SQ SCH (10:00)
[2018-08-20] MEDS ORDERED: PROVENTIL 2.5 MG/3 ML NEB IH PRN (11:59)
[2018-08-20] MEDS: Advair Hfa 115/21 Common canister IH SCH (20:41)
[2018-08-20] MEDS: PATIENT OWN MEDICATION PO SCH (22:52)
[2018-08-21] MEDS: Sodium Chloride 0.9% 1000 ML 1,000 ML IV SCH (02:18)
[2018-08-21 05:42] LABS: BASOPHIL % 0.2 % (0.0-0.4); Basophil (Absolute #) 0.01 (0-0.4); Eosinophil % 0.6 % (0.00-5.0); Eosinophil (Absolute #) 0.03 (0-0.5); Granulocyte Absolute (ANC) 2.64 (1.4-6.9); Granulocytes % 56.2 % (36.0-66.0); Hematocrit 35.8 % (35-47); Hemoglobin 11.6 gm/dl (12.0-16.0); Lymphocyte (Absolute #) 1.51 (1.0-4.6); Lymphocytes % 32.1 % (24.0-44.0); Mean Cell Volume 96.2 fl (78-100); Mean Corpuscular Hgb Concent. 32.4 g/dl (32-36); Monocyte (Absolute #) 0.51 (0.0-1.3); Monocytes % 10.9 % (0.0-12.0); Platelet Count 187 K/mm3 (150-450); Red Blood Count 3.72 M/mm3 (4.1-5.4); White Blood Count 4.7 K/mm3 (4.0-10.5)
[2018-08-21 05:51] LABS: Mean Corpuscular Hemoglobin 31.1 pg (26-32)
[2018-08-21 06:04] LABS: ANION GAP 10.3 MEQ/L (5-15); BLOOD UREA NITROGEN 3 mg/dL (7-17); CHLORIDE 106 mmol/L (98-107); Calcium 8.8 mg/dL (8.4-10.2); Carbon Dioxide 28 mmol/L (22-30); Creatinine 1 0.58 mg/dL (0.52-1.04); Glucose 88 mg/dL (74-106); Potassium 3.5 mmol/L (3.5-5.1); SODIUM 141 mmol/L (137-145)
[2018-08-21 07:36] VITALS: BP 109/61
[2018-08-21] MEDS: Advair Hfa 115/21 Common canister IH SCH (07:44)
[2018-08-21 08:04] VITALS: PULSE 80; O2SAT 98
--- NOTE | 2018-08-21 08:53 | PCM.DCORD ---
- Discharge Discharge Date: 08/21/18 Disposition: Home, Self-Care Condition: Good Prescriptions: Continue Bupropion HCl [Wellbutrin Sr] 150 mg PO DAILY Pantoprazole Sodium [Protonix] 40 mg PO DAILY Mometasone/Formoterol [Dulera 100 Mcg/5 Mcg Inhaler] 13 gm IH Q4H PRN PRN PRN Reason: Shortness Of Breath Albuterol 2.5 mg/3 ml Neb [Proventil 2.5 mg/3 ml Neb] 2.5 mg IH DAILY Lurasidone HCl [Latuda] 20 mg PO HS Ondansetron ODT 4 MG [Zofran Odt 4 mg] 4 mg PO Q6H PRN PRN #10 tab.rapdis PRN Reason: Nausea/Vomiting Pregabalin 50 mg [Lyrica 50MG] 50 mg PO DAILY Instructions: Viral Gastroenteritis, Adult (DC) Follow up with: Deacon Thompson MD [NON-STAFF PHY W/O PRIVILEGES] - 1 Week ANDRES MASSEY [Primary Care Provider] - 1 Week
--- NOTE | 2018-08-23 10:42 | DS ---
DISCHARGE DIAGNOSES: 1) ABDOMINAL PAIN. 2) NOROVIRUS. 3) DEPRESSION. 4) BIPOLAR DISORDER. 5) VOMITING. DISCHARGE PHYSICAL EXAMINATION: VITALS: Temperature current 98.3F, temperature max 98.6F, heart rate 68 to 80, respiratory rate 16 to 21, blood pressure 103 to 111 over 61 to 70. Oxygen saturation 94 to 98% on room air. GENERAL: The patient is a pleasant lady sitting up in bed in no acute distress. CVS: She has a regular rate and rhythm. No murmurs, gallops or rubs. CHEST: Clear to auscultation bilaterally. No crackles or wheezes. ABDOMEN: Soft, nontender, nondistended with normal bowel sounds. EXTREMITIES: No clubbing, cyanosis or edema. SKIN: Warm, dry and intact. HOSPITAL COURSE: 1) ABDOMINAL PAIN: She reports the pain has resolved. She has been able to tolerate clear liquid diet without any problems and would like the diet advanced. She is going to be discharged home today. 2) NOROVIRUS: A GI panel was checked and she was positive for Norovirus. She reports her diarrhea has decreased and she has been able to keep fluids down. 3) DEPRESSION: She was continued on her home medications. 4) BIPOLAR DISORDER: She was continued on her home medications. 5) VOMITING: She had not had any vomiting within the past 12 to 24 hours of discharge. DISCHARGE MEDICATIONS: Please see the discharge order. DISPOSITION: The patient was discharged to home in fair condition to follow up with myself in the clinic.
== END 2018-08-21 10:35 | disposition home or self-care (01) ==
LOC: ED 09:37 → MED SURG 14:30
PROVIDERS: ADMIT Family Medicine; ATTEND Internal Medicine
DX: R10.9 Unspecified abdominal pain (principal); A08.11 Acute gastroenteropathy due to Norwalk agent; E87.6 Hypokalemia; R11.10 Vomiting, unspecified; Z79.01 Long term (current) use of anticoagulants; Z79.899 Other long term (current) drug therapy; Z87.19 Personal history of other diseases of the digestive system
CPT/HCPCS: 36000; 36415; 74176; 80048; 80053; 80307; 81001; 81025; 82150; 83605; 83690; 84132; 85025; 87086; 87507; 87631; 94150; 94640; 94760; 96360; 96374; 96375; 99285; G0378; J1170; J1650; J2405; J3480; A9270-GY

== ENCOUNTER 2019-06-01 08:55 | Emergency (ER) | payer MEDICARE ==
[2019-06-01] MEDS ORDERED: TORAdol 30 mg Injection IM ONE (09:43)
--- NOTE | 2019-06-01 09:48 | ERPHSYRPT ---
- History of Present Illness Time Seen by Provider: 06/01/19 08:59 Source: patient Exam Limitations: no limitations Patient Subjective Stated Complaint: pt to ER with L ankle injury. pt was at the gym and stepped off the treadmill wrong and twisted it. Triage Nursing Assessment: pt to ER with complaints of L ankle pain. pt states she was at the gym and stepped off the treadmill wrong. Eversion of ankle. slight swelling. pulses palpable. Physician History: 33 years old female presented in the ER with chief complaint of left ankle/foot pain sudden onset sharp moderate intensity started after she stepped off of treadmill at a gym prior to arrival and twisted left ankle. aggravated with weightbearing/movement and partially relieved with being still/eyes. Associated with swelling of the ankle. No injury anywhere else. Method of Injury: twisted Occurred: just prior to arrival Quality: constant Severity of Pain-Max: moderate Severity of Pain-Current: moderate Lower Extremities Pain: foot: left, ankle: left Modifying Factors: Improves With: immobilization, movement Allergies/Adverse Reactions: barley Allergy (Mild, Verified 06/01/19 09:21) wheat Allergy (Mild, Verified 06/01/19 09:21) corn Allergy (Verified 06/01/19 09:21) gluten Allergy (Verified 06/01/19 09:21) magnesium citrate Allergy (Verified 06/01/19 09:21) morphine Allergy (Verified 06/01/19 09:21) Rash venom-honey bee [bee venom (honey bee)] Allergy (Verified 06/01/19 09:21) seasonal allergies Allergy (Mild, Uncoded 06/01/19 09:21) Difficulty Breathing Home Medications: Albuterol 2.5 mg/3 ml Neb [Proventil 2.5 mg/3 ml Neb] 2.5 mg IH DAILY 12/24 [History] Bupropion HCl [Wellbutrin Sr] 150 mg PO DAILY 10/13/16 [History] Mometasone/Formoterol [Dulera 100 Mcg/5 Mcg Inhaler] 13 gm IH Q4H PRN PRN [History] Pantoprazole Sodium [Protonix] 40 mg PO DAILY 10/13/16 [History] Lurasidone HCl [Latuda] 20 mg PO HS 03/10/17 [History] Pregabalin 50 mg [Lyrica 50MG] 50 mg PO DAILY 08/19/18 [History] Atorvastatin Calcium [Lipitor 20MG Tablet] 20 mg PO DAILY 06/01/19 [History] Tizanidine HCl 4 mg [Zanaflex 4 MG] 4 mg PO DAILY 06/01/19 [History] Hx Tetanus, Diphtheria Vaccination/Date Given: Yes Hx Influenza Vaccination/Date Given: Yes Hx Pneumococcal Vaccination/Date Given: No Immunizations Up to Date: Yes - Review of Systems Constitutional: No Symptoms Eyes: No Symptoms Ears, Nose, & Throat: No Symptoms Respiratory: No Symptoms Cardiac: Orthopnea Abdominal/Gastrointestinal: No Symptoms Musculoskeletal: Injury, Joint Pain, Joint Swelling Skin: No Symptoms Neurological: No Symptoms Psychological: No Symptoms - Past Medical History Pertinent Past Medical History: Yes Neurological History: Migraines ENT History: Other Cardiac History: High Cholesterol, Hypertension Respiratory History: Asthma Endocrine Medical History: No Pertinent History Musculoskeletal History: Arthritis, Fibromyalgia GI Medical History: GERD History: Other Psycho-Social History: Bipolar, Depression, Other Female Reproductive Disorders: Other Other Medical History: eoesnophilic esophagitis, PTSD, PCOS - Past Surgical History Past Surgical History: Yes Neuro Surgical History: No Pertinent History Cardiac: No Pertinent History Respiratory: No Pertinent History Gastrointestinal: Cholecystectomy Genitourinary: No Pertinent History Musculoskeletal: Orthopedic Surgery Female Surgical History: No Pertinent History Other Surgical History: cyst removal x 2, C6-C7 fusion - Social History Smoking Status: Never smoker Exposure to second hand smoke: Yes Alcohol Use: None Drug Use: none Patient Lives Alone: No Significant Family History: no pertinent family hx - Female History Hx Last Menstrual Period: 06/01/2019 Hx Now: No - Nursing Vital Signs Nursing Vital Signs: Initial Vital Signs Temperature 97.7 F 06/01/19 09:06 Pulse Rate 88 06/01/19 09:06 Respiratory Rate 18 06/01/19 09:06 Blood Pressure 136/88 06/01/19 09:06 O2 Sat by Pulse Oximetry 97 06/01/19 09:06 Pain Scale Pain Intensity 9 - Physical Exam General Appearance: no apparent distress Eyes, Ears, Nose, Throat Exam: normal ENT inspection, pharynx normal Neck Exam: normal inspection Cardiovascular/Respiratory Exam: normal breath sounds, regular rate/rhythm Back Exam: normal inspection, normal range of motion Legs Exam: bilateral leg: non-tender, normal inspection, normal range of motion Ankle Exam: left ankle: bone tenderness (lateral malleolus), limited range of motion, pain, soft tissue tenderness, swelling Foot Exam: left foot: bone tenderness (base of 5th metatarsal), pain, soft tissue tenderness Neuro/Tendon Exam: normal sensation Mental Status Exam: alert, oriented x 3, cooperative Skin Exam: normal color SpO2 Interpretation: normal SpO2: 97 O2 Delivery: Room Air - Course Nursing assessment & vital signs reviewed: Yes Ordered Tests: Active Orders 24 hr Category Date Time Status ANKLE (3 VIEWS) Stat Exams 06/01/19 10:03 Taken FOOT (MINIMUM 3 VIEWS) Stat Exams 06/01/19 10:03 Taken Medication Summary Discontinued Medications Generic Name Dose Route Start Last Admin Trade Name Anastasiia PRN Reason Stop Dose Admin Ketorolac Tromethamine 60 mg 06/01/19 09:43 06/01/19 10:00 Toradol 30 Mg Injection IM 06/01/19 09:44 60 mg STAT ONE Administration Ketorolac Tromethamine Confirm 06/01/19 09:50 Toradol 30 Mg Injection Administered 06/01/19 09:51 Dose 60 mg .ROUTE .STK-MED ONE - Progress Progress: improved, pain not gone completely, re-examined Progress Note: rule out fracture dislocation. I believe she has ankle sprain. She still have significant pain with ambulation/weight-bearing/movements. I would start her on NSAIDs. Crutches and a bearing as tolerated. Outpatient primary care/ orthopedic surgery followup. 06/01/19 10:55 06/01/19 11:00 Counseled pt/family regarding: diagnosis, need for follow-up, rad results - Departure Departure Disposition: Home Clinical Impression: Ankle sprain Qualifiers: Encounter type: initial encounter Involved ligament of ankle: unspecified ligament Laterality: left Qualified Code(s): S93.402A - Sprain of unspecified ligament of left ankle, initial encounter Condition: Stable Critical Care Time: No Referrals: ANDRES MASSEY [Primary Care Provider] - Follow Up with PCP/3 days JACKSON ALEXANDRA NP [NON-STAFF PHY W/O PRIVILEGES] - [facility] [phone] (3 days ) Instructions: Ankle Sprain (DC) Additional Instructions: take pain medications as needed. Weightbearing only as tolerated. Followup with floor to O./primary care for reevaluation. Return to ER for any worsening. Forms: Work/School Release Form Prescriptions: Ibuprofen 600 mg PO Q6HPRN PRN 10 Days #20 tablet PRN Reason: Pain
[2019-06-01] MEDS ORDERED: TORAdol 30 mg Injection ONE (09:50)
[2019-06-01 11:14] VITALS: BP 110/80; PULSE 68; O2SAT 99
--- NOTE | 2019-06-01 20:34 | XRAY ---
Indication: Pain following injury. Comparison: None 3 views of the left ankle demonstrates mild soft tissue swelling and small plantar heel spur. No other bony, articular, or soft tissue abnormalities.
--- NOTE | 2019-06-01 20:34 | XRAY ---
Indication: Pain following injury. Comparison: None 3 nonweightbearing views of the left foot demonstrates small plantar heel spur. No other bony, articular, or soft tissue abnormalities.
== END 2019-06-01 11:28 | disposition home or self-care (01) ==
LOC: ED 08:55
DX: S93.402A Sprain of unspecified ligament of left ankle, initial encounter (principal); M25.572 Pain in left ankle and joints of left foot; X50.1XXA Overexertion from prolonged static or awkward postures, initial encounter
CPT/HCPCS: 73610; 73630; 96372; 99284; J1885

== ENCOUNTER 2019-09-09 08:11 | Emergency (ER) | payer MEDICARE ==
--- NOTE | 2019-09-09 08:47 | ERPHSYRPT ---
- History of Present Illness Time Seen by Provider: 09/09/19 08:30 Historian: patient Exam Limitations: no limitations Patient Subjective Stated Complaint: Pt began peeing blood yesterday, today her urine is dark but no blood per pt, more pain w/palpatation on the left than the right Triage Nursing Assessment: Pt had went to [facility] and they sent her to the ER due to having left flank pain with hematuria, pt doesn't think there was blood in her urine this AM but states that it was really dark, pain w/ palpatation to the left flank more than the right, denies abdominal pain, vitals wnl, pulses normal, hx of kidney stones that required surgery Physician History: This is an obese 33-year-old female who has history of recurrent ureteral stones. Patient states the intermittent bilateral flank and bilateral lower quadrant pain and associated gross hematuria began yesterday. Patient states that he has no nausea vomiting or diarrhea. Patient denies chest pain she denies shortness of breath. The patient states that at this moment time she does not need anything for pain control. The gross hematuria is new for her. Patient did not come to the emergency room with a ride. She drove herself. Patient has had Toradol in the past without any problems. She does not know why she is allergic to morphine but has had Dilaudid in the past without any problems. Timing/Duration: yesterday Activities at Onset: none Quality: aching Abdominal Pain Onset Location: RLQ, LLQ, flank (Bilateral) Pain Radiation: RLQ, LLQ, flank (Bilateral) Severity of Pain-Max: mild Severity of Pain-Current: mild Modifying Factors: Improves With: nothing Associated Symptoms: No fever/chills, No nausea, No neck pain, No vomiting Previous symptoms: same symptoms as today Allergies/Adverse Reactions: barley Allergy (Mild, Verified 09/09/19 08:31) wheat Allergy (Mild, Verified 09/09/19 08:31) corn Allergy (Verified 09/09/19 08:31) gluten Allergy (Verified 09/09/19 08:31) magnesium citrate Allergy (Verified 09/09/19 08:31) morphine Allergy (Verified 09/09/19 08:31) Rash venom-honey bee [bee venom (honey bee)] Allergy (Verified 09/09/19 08:31) seasonal allergies Allergy (Mild, Uncoded 09/09/19 08:31) Difficulty Breathing Home Medications: Albuterol 2.5 mg/3 ml Neb [Proventil 2.5 mg/3 ml Neb] 2.5 mg IH DAILY 12/24 [History] Bupropion HCl [Wellbutrin Sr] 150 mg PO DAILY 10/13/16 [History] Mometasone/Formoterol [Dulera 100 Mcg/5 Mcg Inhaler] 13 gm IH Q4H PRN PRN [History] Pantoprazole Sodium [Protonix] 40 mg PO DAILY 10/13/16 [History] Lurasidone HCl [Latuda] 20 mg PO HS 03/10/17 [History] Pregabalin 50 mg [Lyrica 50MG] 50 mg PO DAILY 08/19/18 [History] Atorvastatin Calcium [Lipitor 20MG Tablet] 20 mg PO DAILY 06/01/19 [History] Tizanidine HCl 4 mg [Zanaflex 4 MG] 4 mg PO DAILY 06/01/19 [History] Hx Tetanus, Diphtheria Vaccination/Date Given: Yes Hx Influenza Vaccination/Date Given: Yes Hx Pneumococcal Vaccination/Date Given: No - Review of Systems Constitutional: No Symptoms Eyes: No Symptoms Ears, Nose, & Throat: No Symptoms Respiratory: No Symptoms Cardiac: No Symptoms Abdominal/Gastrointestinal: Abdominal Pain (Bilateral lower quadrants) Genitourinary Symptoms: Flank Pain (Lateral flank) Musculoskeletal: No Symptoms Skin: No Symptoms Neurological: No Symptoms Psychological: No Symptoms Endocrine: No Symptoms Hematologic/Lymphatic: No Symptoms Immunological/Allergic: No Symptoms All Other Systems: Reviewed and Negative - Past Medical History Pertinent Past Medical History: Yes Neurological History: Migraines ENT History: Other Cardiac History: Hypertension Respiratory History: Asthma Endocrine Medical History: No Pertinent History Musculoskeletal History: Fibromyalgia, Osteoarthritis GI Medical History: GERD History: Other Psycho-Social History: Bipolar, Depression, Other Female Reproductive Disorders: Other Other Medical History: 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 - Past Surgical History Past Surgical History: Yes Neuro Surgical History: No Pertinent History Cardiac: No Pertinent History Respiratory: No Pertinent History Gastrointestinal: Cholecystectomy Genitourinary: No Pertinent History Musculoskeletal: Orthopedic Surgery Female Surgical History: No Pertinent History Other Surgical History: cyst removal x 2, C6-C7 fusion - Social History Smoking Status: Never smoker Exposure to second hand smoke: No Alcohol Use: None Drug Use: none Patient Lives Alone: No Significant Family History: no pertinent family hx - Female History Hx Last Menstrual Period: 09/02/2019 Hx Now: No - Nursing Vital Signs Nursing Vital Signs: Initial Vital Signs Temperature 98.1 F 09/09/19 08:17 Pulse Rate 72 09/09/19 08:17 Blood Pressure 141/95 09/09/19 08:17 O2 Sat by Pulse Oximetry 96 09/09/19 08:17 Pain Scale Pain Intensity 0 - Physical Exam General Appearance: mild distress, alert, anxiety, obese Eye Exam: PERRL/EOMI, eyes nml inspection Ears, Nose, Throat Exam: normal ENT inspection, moist mucous membranes Neck Exam: normal inspection, non-tender, supple, full range of motion Respiratory Exam: normal breath sounds, lungs clear, airway intact, No chest tenderness, No respiratory distress Cardiovascular Exam: regular rate/rhythm, normal heart sounds, normal peripheral pulses Gastrointestinal/Abdomen Exam: soft, normal bowel sounds, No tenderness, No guarding Pelvic Exam: not done Rectal Exam: not done Back Exam: normal inspection, normal range of motion, CVA tenderness (Lateral), No vertebral tenderness Extremity Exam: normal inspection, normal range of motion Neurologic Exam: alert, oriented x 3, cooperative, quality engineer medical device II-XII nml as tested, normal mood/affect, nml cerebellar function, nml station & gait Skin Exam: normal color, warm, dry Lymphatic Exam: No adenopathy SpO2 Interpretation: normal SpO2: 96 O2 Delivery: Room Air - Course Nursing assessment & vital signs reviewed: Yes Ordered Tests: Active Orders 24 hr Category Date Time Status IV Insertion STAT Care 09/09/19 08:49 Active ABDOMEN AND PELVIS W/0 CONTRAS [CT] Stat Exams 09/09/19 08:50 Completed AMYLASE Stat Lab 09/09/19 09:04 Completed CBC W DIFF Stat Lab 09/09/19 09:04 Completed CMP Stat Lab 09/09/19 09:04 Completed CULTURE,URINE Stat Lab 09/09/19 09:07 Received HCG QUALITATIVE,SERUM Stat Lab 09/09/19 09:04 Completed LIPASE Stat Lab 09/09/19 09:04 Completed Lactic Acid Stat Lab 09/09/19 08:49 Completed PROTIME WITH INR Stat Lab 09/09/19 08:50 Completed UA W/RFX UR CULTURE Stat Lab 09/09/19 09:07 Completed Medication Summary Discontinued Medications Generic Name Dose Route Start Last Admin Trade Name Anastasiia PRN Reason Stop Dose Admin Sodium Chloride 1,000 mls @ 999 mls/hr 09/09/19 08:49 09/09/19 10:10 Sodium Chloride 0.9% 1000 Ml IV 09/09/19 09:49 Infused .Q1H1M STA Infusion Sodium Chloride Confirm 09/09/19 08:53 Sodium Chloride 0.9% 1000 Ml Administered 09/09/19 08:54 Dose 1,000 mls @ ud .ROUTE .STK-MED ONE Ketorolac Tromethamine 30 mg 09/09/19 08:49 09/09/19 08:58 Toradol 30 Mg Injection IV 09/09/19 08:50 30 mg STAT ONE Administration Ketorolac Tromethamine Confirm 09/09/19 08:53 Toradol 30 Mg Injection Administered 09/09/19 08:54 Dose 30 mg .ROUTE .STK-MED ONE Ondansetron HCl 4 mg 09/09/19 08:49 09/09/19 08:58 Zofran 4 Mg/2 Ml Vial IV 09/09/19 08:50 4 mg STAT ONE Administration Ondansetron HCl Confirm 09/09/19 08:53 Zofran 4 Mg/2 Ml Vial Administered 09/09/19 08:54 Dose 4 mg .ROUTE .STK-MED ONE Lab/Rad Data: Laboratory Result Diagrams 09/09/19 09:04 09/09/19 09:04 Laboratory Results 09/09/19 09/09/19 09/09/19 Range/Units 09:07 09:04 09:04 WBC (4.0-10.5) K/mm3 RBC (4.1-5.4) M/mm3 Hgb (12.0-16.0) gm/dl Hct (35-47) % MCV (78-100) fl MCH (26-32) pg MCHC (32-36) g/dl RDW (11.5-14.0) % Plt Count (150-450) K/mm3 MPV (7.5-11.0) fl Gran % (36.0-66.0) % Eos # (Auto) (0-0.5) Absolute Lymphs (auto) (1.0-4.6) Absolute Monos (auto) (0.0-1.3) Lymphocytes % (24.0-44.0) % Monocytes % (0.0-12.0) % Eosinophils % (0.00-5.0) % Basophils % (0.0-0.4) % Absolute Granulocytes (1.4-6.9) Basophils # (0-0.4) PT (9.95-12.35) SECONDS INR (0.8-3.0) Sodium 141 (137-145) mmol/L Potassium 4.0 (3.5-5.1) mmol/L Chloride 107 (98-107) mmol/L Carbon Dioxide 28 (22-30) mmol/L Anion Gap 9.6 (5-15) MEQ/L BUN 9 (7-17) mg/dL Creatinine 0.61 (0.52-1.04) mg/dL Estimated GFR > 60.0 ML/MIN Glucose 101 (74-106) mg/dL Lactic Acid (0.4-2.0) Calcium 8.9 (8.4-10.2) mg/dL Total Bilirubin 0.50 (0.2-1.3) mg/dL AST 20 (14-36) U/L ALT 20 (0-35) U/L Alkaline Phosphatase 62 (38-126) U/L Serum Total Protein 7.6 (6.3-8.2) g/dL Albumin 4.1 (3.5-5.0) g/dL Amylase 65 (30-110) U/L Lipase 74 (23-300) U/L Serum , Qual NEGATIVE (Negative) Urine Color YELLOW (YELLOW) Urine Appearance SLIGHTLY CLOUDY (CLEAR) Urine pH 6.0 (5-6) Ur Specific [place] 1.023 (1.005-1.025) Urine Protein NEGATIVE (Negative) Urine Ketones NEGATIVE (NEGATIVE) Urine Blood MODERATE (0-5) Amandeep/ul Urine Nitrite NEGATIVE (NEGATIVE) Urine Bilirubin NEGATIVE (NEGATIVE) Urine Urobilinogen NEGATIVE (0-1) mg/dL Ur Leukocyte Esterase TRACE (NEGATIVE) Urine WBC (Auto) 6-10 (0-5) /HPF Urine RBC (Auto) 6-10 (0-2) /HPF U Epithel Cells (Auto) FEW (FEW) /HPF Urine Bacteria (Auto) NONE (NEGATIVE) /HPF Urine Mucus (Auto) SLIGHT (NEGATIVE) /HPF Urine Culture Reflexed YES (NO) Urine Glucose NEGATIVE (NEGATIVE) mg/dL 09/09/19 09/09/19 09/09/19 Range/Units 09:04 08:50 08:49 WBC 7.0 (4.0-10.5) K/mm3 RBC 4.28 (4.1-5.4) M/mm3 Hgb 13.7 (12.0-16.0) gm/dl Hct 41.5 (35-47) % MCV 97.0 (78-100) fl MCH 32.0 (26-32) pg MCHC 33.0 (32-36) g/dl RDW 13.3 (11.5-14.0) % Plt Count 234 (150-450) K/mm3 MPV 11.5 H (7.5-11.0) fl Gran % 60.3 (36.0-66.0) % Eos # (Auto) 0.17 (0-0.5) Absolute Lymphs (auto) 2.19 (1.0-4.6) Absolute Monos (auto) 0.41 (0.0-1.3) Lymphocytes % 31.3 (24.0-44.0) % Monocytes % 5.9 (0.0-12.0) % Eosinophils % 2.4 (0.00-5.0) % Basophils % 0.1 (0.0-0.4) % Absolute Granulocytes 4.21 (1.4-6.9) Basophils # 0.01 (0-0.4) PT 12.9 H (9.95-12.35) SECONDS INR 1.14 (0.8-3.0) Sodium (137-145) mmol/L Potassium (3.5-5.1) mmol/L Chloride (98-107) mmol/L Carbon Dioxide (22-30) mmol/L Anion Gap (5-15) MEQ/L BUN (7-17) mg/dL Creatinine (0.52-1.04) mg/dL Estimated GFR ML/MIN Glucose (74-106) mg/dL Lactic Acid 0.5 (0.4-2.0) Calcium (8.4-10.2) mg/dL Total Bilirubin (0.2-1.3) mg/dL AST (14-36) U/L ALT (0-35) U/L Alkaline Phosphatase (38-126) U/L Serum Total Protein (6.3-8.2) g/dL Albumin (3.5-5.0) g/dL Amylase (30-110) U/L Lipase (23-300) U/L Serum , Qual (Negative) Urine Color (YELLOW) Urine Appearance (CLEAR) Urine pH (5-6) Ur Specific [place] (1.005-1.025) Urine Protein (Negative) Urine Ketones (NEGATIVE) Urine Blood (0-5) Amandeep/ul Urine Nitrite (NEGATIVE) Urine Bilirubin (NEGATIVE) Urine Urobilinogen (0-1) mg/dL Ur Leukocyte Esterase (NEGATIVE) Urine WBC (Auto) (0-5) /HPF Urine RBC (Auto) (0-2) /HPF U Epithel Cells (Auto) (FEW) /HPF Urine Bacteria (Auto) (NEGATIVE) /HPF Urine Mucus (Auto) (NEGATIVE) /HPF Urine Culture Reflexed (NO) Urine Glucose (NEGATIVE) mg/dL - Progress Progress: improved Progress Note: 09/09/19 11:02 CAT scan of the abdomen and pelvis reveals bilateral nonobstructing renal micro- calculi. The remainder of the CAT scan of the abdomen and pelvis is negative Counseled pt/family regarding: lab results, diagnosis, need for follow-up, rad results - Departure Departure Disposition: Home Clinical Impression: Urinary tract infection Condition: Stable Critical Care Time: No Referrals: HILLARY DAMON [PODIATRY STAFF] - Additional Instructions: Drink plenty of fluids. Take your medications as prescribed. Follow-up with your primary care physician for further management. Take ibuprofen 600 mg orally with food 3 times a day to help manage pain. Prescriptions: Hydrocodone/APAP 5/325 [[place] 5/325 mg] 1 each PO Q8H PRN PRN #6 tablet MDD 3 PRN Reason: Pain Ciprofloxacin [Cipro 500 MG] 500 mg PO BID #14 tablet
[2019-09-09] MEDS ORDERED: TORAdol 30 mg Injection IV ONE (08:49)
[2019-09-09] MEDS ORDERED: Zofran 4 MG/2 ML VIAL IV ONE (08:49)
[2019-09-09] MEDS ORDERED: Sodium Chloride 0.9% 1000 ML 1,000 ML IV STA (08:49)
[2019-09-09] MEDS ORDERED: Sodium Chloride 0.9% 1000 ML 1,000 ML ONE (08:53)
[2019-09-09] MEDS ORDERED: TORAdol 30 mg Injection ONE (08:53)
[2019-09-09] MEDS ORDERED: Zofran 4 MG/2 ML VIAL ONE (08:53)
[2019-09-09 09:10] LABS: Absolute Neutrophil Ct (ANC) 4.21 (1.4-6.9); BASOPHIL % 0.1 % (0.0-0.4); Basophil (Absolute #) 0.01 (0-0.4); Eosinophil % 2.4 % (0.00-5.0); Eosinophil (Absolute #) 0.17 (0-0.5); Hematocrit 41.5 % (35-47); Hemoglobin 13.7 gm/dl (12.0-16.0); Lymphocyte (Absolute #) 2.19 (1.0-4.6); Lymphocytes % 31.3 % (24.0-44.0); Mean Platelet Volume 11.5 fl (7.5-11.0); Monocyte (Absolute #) 0.41 (0.0-1.3); Monocytes % 5.9 % (0.0-12.0); Neutrophil % 60.3 % (36.0-66.0); Platelet Count 234 K/mm3 (150-450); Red Blood Count 4.28 M/mm3 (4.1-5.4); Red Cell Distribution Width 13.3 % (11.5-14.0)
[2019-09-09 09:18] LABS: Appearance SLIGHTLY CLOUDY (CLEAR); Bilirubin NEGATIVE (NEGATIVE); Blood MODERATE Ery/ul (0-5); Epithelial Cells FEW /HPF (FEW); Glucose NEGATIVE (NEGATIVE); Ketones NEGATIVE (NEGATIVE); Leukocyte Esterase TRACE (NEGATIVE); Mucus SLIGHT /HPF (NEGATIVE); Nitrite NEGATIVE (NEGATIVE); Protein,Urine Dip NEGATIVE (Negative); Specific Gravity 1.023 (1.005-1.025); Urobilinogen NEGATIVE mg/dL (0-1)
[2019-09-09 09:26] LABS: INR 1.14 (0.8-3.0); PROTIME 12.9 SECONDS (9.95-12.35)
[2019-09-09 09:30] LABS: ALBUMIN 4.1 g/dL (3.5-5.0); ALKALINE PHOSPHATASE 62 U/L (38-126); AMYLASE 65 U/L (30-110); ANION GAP 9.6 MEQ/L (5-15); BLOOD UREA NITROGEN 9 mg/dL (7-17); CHLORIDE 107 mmol/L (98-107); Calcium 8.9 mg/dL (8.4-10.2); Carbon Dioxide 28 mmol/L (22-30); Creatinine 1 0.61 mg/dL (0.52-1.04); Glucose 101 mg/dL (74-106); LIPASE 74 U/L (23-300); SGOT/AST 20 U/L (14-36); SGPT/ALT 20 U/L (0-35); SODIUM 141 mmol/L (137-145); Total Protein 7.6 g/dL (6.3-8.2)
--- NOTE | 2019-09-09 10:22 | XRAY ---
Indication: Bilateral flank pain. Multiple contiguous axial images obtained through the abdomen and pelvis without contrast as ordered. Comparison: August 19, 2018. Lung bases clear with stable right posterior calcified granuloma. Heart is not enlarged. Noncontrasted stomach and bowel loops remain nonobstructed. Normal appendix. No free fluid/air. Nonobstructing bilateral renal micro-calculi increased in number. Largest calculus 4 mm left lower pole. Stable tiny left-sided phlebolith approximately L3 level and previous cholecystectomy. Remaining liver, pancreas, spleen, adrenal glands, kidneys, ureters, bladder, uterus, and aorta appear unremarkable for noncontrast exam. Osseous structures intact. Impression: 1. Nonobstructing bilateral renal micro-calculi increased in number. 2. Remaining CT abdomen/pelvis without contrast exam is again negative.
[2019-09-09 12:07] VITALS: BP 134/72; PULSE 74; O2SAT 96
== END 2019-09-09 12:14 | disposition home or self-care (01) ==
LOC: ED 08:11
DX: N39.0 Urinary tract infection, site not specified (principal); R10.9 Unspecified abdominal pain; R31.0 Gross hematuria; R10.32 Left lower quadrant pain; R10.31 Right lower quadrant pain; Z87.442 Personal history of urinary calculi; Z79.899 Other long term (current) drug therapy; I10 Essential (primary) hypertension
CPT/HCPCS: 36000; 36415; 74176; 80053; 81001; 81025; 82150; 83605; 83690; 85025; 85610; 87086; 96360; 96374; 96375; 99284; J1885; J2405

== ENCOUNTER 2019-12-11 10:10 | Emergency (ER) | payer MEDICARE ==
--- NOTE | 2019-12-11 10:31 | ERPHSYRPT ---
- History of Present Illness Time Seen by Provider: 12/11/19 10:30 Patient Subjective Stated Complaint: PT states "I vomited this morning and it was a little red, I didnt think anything of it and then my stomach just started to burn. I am supposed to take belly meds but I am in the process of working that all out with my gi doc in [facility]." Triage Nursing Assessment: Pt presented alert and oriented X 3, skin wpd pt ambulates with an upright steady gait, holding her abdomen. Pt able to speak in clear full sentences. Physician History: Is a 34-year-old obese white female who presents with recurrent epigastric burning. Patient ate tomatoes last night and then had a small amount of vomitus with some redness in it. She then had epigastric burning. Patient does have a history of gastroesophageal reflux disease. She is supposed to be taking Pepcid and Protonix orally. She states that she has been taking those medications but they are not effective. She is unable to get transportation to Dr. Ramsey, her chef & owner, in [place]. Patient is not on any anticoagulation therapy. Patient states that she has had a GI cocktail in the past and that has worked well for her epigastric burning symptoms in the past. States that she has had a cholecystectomy in the past. She is modified her diet to avoid fatty greasy spicy foods. Patient has a history of migraines, hypertension, asthma, fibromyalgia and osteoarthritis. She also has a history of bipolar disorder and depression. Patient had a CAT scan of her abdomen pelvis 2-1/2 months ago revealed bilateral nonobstructive renal stones but no other abnormality. Timing/Duration: today Abdominal Pain Onset Location: epigastric Pain Radiation: no radiation Severity of Pain-Max: mild Severity of Pain-Current: mild Modifying Factors: Improves With: vomiting Associated Symptoms: heartburn, vomiting (Once) Previous symptoms: same symptoms as today Allergies/Adverse Reactions: barley Allergy (Mild, Verified 09/09/19 08:31) wheat Allergy (Mild, Verified 09/09/19 08:31) corn Allergy (Verified 09/09/19 08:31) gluten Allergy (Verified 09/09/19 08:31) magnesium citrate Allergy (Verified 09/09/19 08:31) morphine Allergy (Verified 09/09/19 08:31) Rash venom-honey bee [bee venom (honey bee)] Allergy (Verified 09/09/19 08:31) seasonal allergies Allergy (Mild, Uncoded 09/09/19 08:31) Difficulty Breathing Home Medications: Albuterol 2.5 mg/3 ml Neb [Proventil 2.5 mg/3 ml Neb] 2.5 mg IH DAILY 12/24 [History] Bupropion HCl [Wellbutrin Sr] 150 mg PO DAILY 10/13/16 [History] Mometasone/Formoterol [Dulera 100 Mcg-5 Mcg Inhaler] 13 gm IH Q4H PRN PRN [History] Pantoprazole Sodium [Protonix] 40 mg PO DAILY 10/13/16 [History] Lurasidone HCl [Latuda] 20 mg PO HS 03/10/17 [History] Pregabalin 50 mg [Lyrica 50MG] 50 mg PO DAILY 08/19/18 [History] Atorvastatin Calcium [Lipitor 20MG Tablet] 20 mg PO DAILY 06/01/19 [History] Tizanidine HCl 4 mg [Zanaflex 4 MG] 4 mg PO DAILY 06/01/19 [History] Hx Tetanus, Diphtheria Vaccination/Date Given: Yes Hx Influenza Vaccination/Date Given: No Hx Pneumococcal Vaccination/Date Given: No Immunizations Up to Date: Yes Travel Risk - International Travel Have you traveled outside of the country in past 3 weeks: No Have you or anyone close to you been diagnosed with or: No Do your reside in a community with a known COVID-19 case?: Yes If Yes where:: [place] - Coronavirus Screening Has patient experienced Coronavirus symptoms: No - Review of Systems Constitutional: No Symptoms Eyes: No Symptoms Ears, Nose, & Throat: No Symptoms Respiratory: No Symptoms Cardiac: No Symptoms Abdominal/Gastrointestinal: Abdominal Pain (Described as epigastric burning), Vomiting (1 time), No Diarrhea, No Constipation Genitourinary Symptoms: No Symptoms Musculoskeletal: No Symptoms Skin: No Symptoms Neurological: No Symptoms Psychological: No Symptoms Endocrine: No Symptoms Hematologic/Lymphatic: No Symptoms Immunological/Allergic: No Symptoms All Other Systems: Reviewed and Negative - Past Medical History Pertinent Past Medical History: Yes Neurological History: Migraines ENT History: Other Cardiac History: Hypertension Respiratory History: Asthma Endocrine Medical History: No Pertinent History Musculoskeletal History: Fibromyalgia, Osteoarthritis GI Medical History: GERD History: Other Psycho-Social History: Bipolar, Depression, Other Female Reproductive Disorders: Other Other Medical History: 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 - Past Surgical History Past Surgical History: Yes Neuro Surgical History: No Pertinent History Cardiac: No Pertinent History Respiratory: No Pertinent History Gastrointestinal: Cholecystectomy Genitourinary: No Pertinent History Musculoskeletal: Orthopedic Surgery Female Surgical History: No Pertinent History Other Surgical History: cyst removal x 2, C6-C7 fusion - Social History Smoking Status: Never smoker Exposure to second hand smoke: Yes Alcohol Use: None Drug Use: none Patient Lives Alone: No Significant Family History: no pertinent family hx - Female History Hx Last Menstrual Period: 11/22/2019 Hx Now: No - Nursing Vital Signs Nursing Vital Signs: Initial Vital Signs Temperature 99.1 F 12/11/19 10:24 Pulse Rate 92 H 12/11/19 10:24 Respiratory Rate 24 12/11/19 10:24 Blood Pressure 132/78 12/11/19 10:24 O2 Sat by Pulse Oximetry 99 12/11/19 10:24 Pain Scale Pain Intensity 8 - Physical Exam General Appearance: no apparent distress, alert, anxiety Eye Exam: PERRL/EOMI, eyes nml inspection Ears, Nose, Throat Exam: normal ENT inspection, moist mucous membranes Neck Exam: normal inspection, non-tender, supple, full range of motion Respiratory Exam: normal breath sounds, lungs clear, airway intact, No chest tenderness, No respiratory distress Cardiovascular Exam: regular rate/rhythm, normal heart sounds, normal peripheral pulses Gastrointestinal/Abdomen Exam: soft, normal bowel sounds, No tenderness Pelvic Exam: not done Rectal Exam: not done Back Exam: normal inspection, normal range of motion, No CVA tenderness, No vertebral tenderness Extremity Exam: normal inspection, normal range of motion, pelvis stable Neurologic Exam: alert, oriented x 3, cooperative, 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 as tested Skin Exam: normal color, warm, dry Lymphatic Exam: No adenopathy SpO2 Interpretation: normal SpO2: 99 O2 Delivery: Room Air - Course Nursing assessment & vital signs reviewed: Yes Ordered Tests: Active Orders 24 hr Category Date Time Status AMYLASE Stat Lab 12/11/19 11:07 Completed CBC W DIFF Stat Lab 12/11/19 11:07 Completed CMP Stat Lab 12/11/19 11:07 Completed LIPASE Stat Lab 12/11/19 11:07 Completed Lactic Acid Stat Lab 12/11/19 10:51 Completed Medication Summary Discontinued Medications Generic Name Dose Route Start Last Admin Trade Name Anastasiia PRN Reason Stop Dose Admin Al Hydrox/Mg Hydrox/Simethicone Confirm 12/11/19 10:51 Maalox Es 30 Ml Unit Dose Administered 12/11/19 10:52 Dose 30 ml .ROUTE .STK-MED ONE Lidocaine HCl Confirm 12/11/19 10:51 Xylocaine Hcl Viscous * Administered 12/11/19 10:52 Dose 1 ml .ROUTE .STK-MED ONE Magnesium Hydroxide 45 ml 12/11/19 10:44 12/11/19 10:52 Gi Cocktail 45 Ml (Maalox/Lidocaine) PO 12/11/19 10:45 45 ml STAT ONE Administration Lab/Rad Data: Laboratory Result Diagrams 12/11/19 11:07 12/11/19 11:07 Laboratory Results 12/11/19 12/11/19 12/11/19 Range/Units 11:07 11:07 10:51 WBC 10.7 H (4.0-10.5) K/mm3 RBC 4.25 (4.1-5.4) M/mm3 Hgb 13.6 (12.0-16.0) gm/dl Hct 41.4 (35-47) % MCV 97.4 (78-100) fl MCH 32.0 (26-32) pg MCHC 32.9 (32-36) g/dl RDW 13.8 (11.5-14.0) % Plt Count 225 (150-450) K/mm3 MPV 10.4 (7.5-11.0) fl Gran % 81.7 H (36.0-66.0) % Eos # (Auto) 0.29 (0-0.5) Absolute Lymphs (auto) 1.03 (1.0-4.6) Absolute Monos (auto) 0.62 (0.0-1.3) Lymphocytes % 9.7 L (24.0-44.0) % Monocytes % 5.8 (0.0-12.0) % Eosinophils % 2.7 (0.00-5.0) % Basophils % 0.1 (0.0-0.4) % Absolute Granulocytes 8.71 H (1.4-6.9) Basophils # 0.01 (0-0.4) Sodium 141 (137-145) mmol/L Potassium 4.2 (3.5-5.1) mmol/L Chloride 107 (98-107) mmol/L Carbon Dioxide 28 (22-30) mmol/L Anion Gap 10.7 (5-15) MEQ/L BUN 11 (7-17) mg/dL Creatinine 0.71 (0.52-1.04) mg/dL Estimated GFR > 60.0 ML/MIN Glucose 105 (74-106) mg/dL Lactic Acid 0.7 (0.4-2.0) Calcium 9.3 (8.4-10.2) mg/dL Total Bilirubin 0.60 (0.2-1.3) mg/dL AST 27 (14-36) U/L ALT 33 (0-35) U/L Alkaline Phosphatase 63 (38-126) U/L Serum Total Protein 8.3 H (6.3-8.2) g/dL Albumin 4.4 (3.5-5.0) g/dL Amylase 71 (30-110) U/L Lipase 76 (23-300) U/L - Progress Progress: improved Progress Note: 12/11/19 11:33 Patient epigastric discomfort has improved. We will discharge her to home with a prescription for Carafate. Patient may also take her other medications. She is to follow-up with her chef & owner today by phone to make arrangements for up follow-up appointment Counseled pt/family regarding: lab results, diagnosis, need for follow-up - Departure Departure Disposition: Home Clinical Impression: Chronic abdominal pain Condition: Stable Critical Care Time: No Referrals: ANDRES MASSEY [Primary Care Provider] - Additional Instructions: Avoid fatty greasy spicy foods. Take your medication as prescribed. Call your chef & owner today to arrange a follow-up appointment and to obtain further management. Prescriptions: Sucralfate 1 gm [Carafate 1 GM] 1 g PO ACHS #20 tablet
[2019-12-11] MEDS ORDERED: GI COCKTAIL 45 ML (Maalox/Lidocaine) PO ONE (10:44)
[2019-12-11] MEDS ORDERED: XYLOCAINE HCl Viscous ONE (10:51)
[2019-12-11] MEDS ORDERED: MAALOX ES 30 ML UNIT DOSE ONE (10:51)
[2019-12-11 11:10] LABS: Absolute Neutrophil Ct (ANC) 8.71 (1.4-6.9); BASOPHIL % 0.1 % (0.0-0.4); Basophil (Absolute #) 0.01 (0-0.4); Eosinophil % 2.7 % (0.00-5.0); Eosinophil (Absolute #) 0.29 (0-0.5); Hematocrit 41.4 % (35-47); Hemoglobin 13.6 gm/dl (12.0-16.0); Lymphocyte (Absolute #) 1.03 (1.0-4.6); Lymphocytes % 9.7 % (24.0-44.0); Mean Cell Volume 97.4 fl (78-100); Mean Corpuscular Hgb Concent. 32.9 g/dl (32-36); Mean Platelet Volume 10.4 fl (7.5-11.0); Monocyte (Absolute #) 0.62 (0.0-1.3); Monocytes % 5.8 % (0.0-12.0); Neutrophil % 81.7 % (36.0-66.0); Platelet Count 225 K/mm3 (150-450); Red Blood Count 4.25 M/mm3 (4.1-5.4); Red Cell Distribution Width 13.8 % (11.5-14.0); White Blood Count 10.7 K/mm3 (4.0-10.5)
[2019-12-11 11:22] LABS: ALBUMIN 4.4 g/dL (3.5-5.0); ALKALINE PHOSPHATASE 63 U/L (38-126); AMYLASE 71 U/L (30-110); ANION GAP 10.7 MEQ/L (5-15); BLOOD UREA NITROGEN 11 mg/dL (7-17); CHLORIDE 107 mmol/L (98-107); Calcium 9.3 mg/dL (8.4-10.2); Carbon Dioxide 28 mmol/L (22-30); Creatinine 1 0.71 mg/dL (0.52-1.04); Glucose 105 mg/dL (74-106); LIPASE 76 U/L (23-300); Potassium 4.2 mmol/L (3.5-5.1); SGOT/AST 27 U/L (14-36); SGPT/ALT 33 U/L (0-35); SODIUM 141 mmol/L (137-145); Total Protein 8.3 g/dL (6.3-8.2)
[2019-12-11 11:43] VITALS: BP 105/67; PULSE 88; O2SAT 99
== END 2019-12-11 11:44 | disposition home or self-care (01) ==
LOC: ED 10:10
DX: R10.13 Epigastric pain (principal); G89.29 Other chronic pain; F45.42 Pain disorder with related psychological factors; K21.9 Gastro-esophageal reflux disease without esophagitis; I10 Essential (primary) hypertension; F31.9 Bipolar disorder, unspecified; J45.909 Unspecified asthma, uncomplicated; M79.7 Fibromyalgia; M19.90 Unspecified osteoarthritis, unspecified site; Z87.442 Personal history of urinary calculi; Z79.899 Other long term (current) drug therapy
CPT/HCPCS: 36415; 80053; 82150; 83605; 83690; 85025; 99283; A9270-GY

== ENCOUNTER 2019-12-14 10:27 | Emergency (ER) | payer MEDICARE ==
[2019-12-14] MEDS ORDERED: Hydromorphone 1 mg/ml Ampule IM ONE (10:53)
[2019-12-14] MEDS ORDERED: ZOFRAN ODT 4 MG PO ONE (10:54)
[2019-12-14] MEDS ORDERED: ZOFRAN ODT 4 MG ONE (11:23)
[2019-12-14] MEDS ORDERED: Hydromorphone 1 mg/ml Ampule ONE (11:23)
[2019-12-14 11:33] VITALS: BP 122/77; PULSE 86
[2019-12-14 11:35] VITALS: O2SAT 96
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
--- NOTE | 2019-12-14 20:06 | XRAY ---
Indication: Pain following fall. Comparison: None 3 view left knee demonstrates mild medial joint space narrowing. No other bony, articular, or soft tissue abnormalities.
--- NOTE | 2019-12-14 20:06 | XRAY ---
Indication: Pain following fall. Comparison: None 3 view right knee demonstrates mild medial joint space narrowing. No other bony, articular, or soft tissue abnormalities.
--- NOTE | 2019-12-14 20:08 | XRAY ---
Indication: Pain following fall. Comparison: None 2 view right lower leg obtained. No bony, articular, or soft tissue abnormalities.
== END 2019-12-14 11:59 | disposition home or self-care (01) ==
LOC: ED 10:27
DX: S80.01XA Contusion of right knee, initial encounter (principal); S80.02XA Contusion of left knee, initial encounter; W01.198A Fall on same level from slipping, tripping and stumbling with subsequent striking against other object, initial encounter; Y92.89 Other specified places as the place of occurrence of the external cause; Z79.899 Other long term (current) drug therapy
CPT/HCPCS: 73562; 73590; 96372; 99284; J1170; Q0162

== ENCOUNTER 2020-04-16 17:25 | Emergency (ER) | payer MEDICARE ==
[2020-04-16 18:29] LABS: Absolute Neutrophil Ct (ANC) 4.59 (1.4-6.9); BASOPHIL % 0.1 % (0.0-0.4); Basophil (Absolute #) 0.01 (0-0.4); Eosinophil % 3.3 % (0.00-5.0); Eosinophil (Absolute #) 0.25 (0-0.5); Hematocrit 41.3 % (35-47); Hemoglobin 13.7 gm/dl (12.0-16.0); Lymphocyte (Absolute #) 2.38 (1.0-4.6); Mean Cell Volume 95.4 fl (78-100); Mean Corpuscular Hemoglobin 31.6 pg (26-32); Mean Corpuscular Hgb Concent. 33.2 g/dl (32-36); Mean Platelet Volume 10.4 fl (7.5-11.0); Monocyte (Absolute #) 0.45 (0.0-1.3); Monocytes % 5.9 % (0.0-12.0); Neutrophil % 59.7 % (36.0-66.0); Platelet Count 286 K/mm3 (150-450); Red Blood Count 4.33 M/mm3 (4.1-5.4); Red Cell Distribution Width 13.3 % (11.5-14.0); White Blood Count 7.7 K/mm3 (4.0-10.5)
[2020-04-16 18:32] LABS: Appearance CLEAR (CLEAR); Bilirubin NEGATIVE (NEGATIVE); Blood LARGE Ery/ul (0-5); Glucose NEGATIVE (NEGATIVE); Ketones NEGATIVE (NEGATIVE); Leukocyte Esterase NEGATIVE (NEGATIVE); Nitrite NEGATIVE (NEGATIVE); Protein,Urine Dip NEGATIVE (Negative); Specific Gravity 1.005 (1.005-1.025); Urobilinogen NEGATIVE mg/dL (0-1)
[2020-04-16 18:40] LABS: ALBUMIN 4.7 g/dL (3.5-5.0); ALKALINE PHOSPHATASE 69 U/L (38-126); ANION GAP 10.9 MEQ/L (5-15); BLOOD UREA NITROGEN 8 mg/dL (7-17); CHLORIDE 104 mmol/L (98-107); Calcium 9.6 mg/dL (8.4-10.2); Carbon Dioxide 28 mmol/L (22-30); Creatinine 1 0.68 mg/dL (0.52-1.04); EST GLOMERULAR FILTRATION RATE > 60.0 ML/MIN; Glucose 97 mg/dL (74-106); SGOT/AST 27 U/L (14-36); SGPT/ALT 32 U/L (0-35); SODIUM 138 mmol/L (137-145); Total Protein 8.6 g/dL (6.3-8.2)
[2020-04-16 19:10] LABS: INFLUENZA A NEGATIVE (NEGATIVE); INFLUENZA B NEGATIVE (NEGATIVE); RESPIRATORY SYNCTIAL VIRUS NEGATIVE (Negative)
[2020-04-16] MEDS ORDERED: DUONEB 0.5-3 MG/3 ml Neb IH ONE ×2 (20:33→20:40)
[2020-04-16] MEDS ORDERED: solu-MEDROL 125 MG IV ONE (20:33)
[2020-04-16] MEDS ORDERED: solu-MEDROL 125 MG ONE (20:36)
--- NOTE | 2020-04-16 20:41 | ERPHSYRPT ---
- History of Present Illness Time Seen by Provider: 04/16/20 17:40 Source: patient Exam Limitations: no limitations Patient Subjective Stated Complaint: Pt tested for Covid yesterday, pt is short of breath, having chest pain/tightness, denies fever, aches all over her body, decreased appetite Triage Nursing Assessment: Pt brought to the ER by a family member, short of breath walking to the room and having to stop to catch her breath, vitals wnl, face is flushed, rates overall achiness and pain as 6/10, reports having a minor cough with some white thick expectorant Physician History: Patient is a 34-year-old female presents to our ED with complaints of shortness of breath. Patient also complains of chest tightness and pressure. Patient has been coughing. Cough is productive of clear sputum. Patient has a history of asthma. Symptoms are similar. Patient used albuterol inhaler with little improvement. Patient also complains of myalgias. No nausea or vomiting. No diarrhea. No rash. Patient states she was around a few friends that tested positive for COVID. Symptoms are mild to moderate in intensity. No specific worsening or improving factors. Patient voices no other complaints or concerns at this time. Patient denies the possibility of . She is currently on her menstrual. Timing/Duration: yesterday Activities at Onset: activity Severity of Dyspnea-Max: moderate Severity of Dyspnea-Current: mild Possible Cause: occasional episodes Modifying Factors: Improves With: albuterol inhaler, coughing Associated Symptoms: constant, cough, No fever, No productive cough, No sweating Allergies/Adverse Reactions: barley Allergy (Mild, Verified 12/14/19 11:05) wheat Allergy (Mild, Verified 12/14/19 11:05) corn Allergy (Verified 12/14/19 11:05) gluten Allergy (Verified 12/14/19 11:05) magnesium citrate Allergy (Verified 12/14/19 11:05) morphine Allergy (Verified 12/14/19 11:05) Rash venom-honey bee [bee venom (honey bee)] Allergy (Verified 12/14/19 11:05) seasonal allergies Allergy (Mild, Uncoded 12/14/19 11:05) Difficulty Breathing Home Medications: Albuterol 2.5 mg/3 ml Neb [Proventil 2.5 mg/3 ml Neb] 2.5 mg IH DAILY 04/06/17 [History] Bupropion HCl [Wellbutrin Sr] 150 mg PO DAILY 10/13/16 [History] Mometasone/Formoterol [Dulera 100 Mcg-5 Mcg Inhaler] 13 gm IH Q4H PRN PRN 10/13/16 [History] Pantoprazole Sodium [Protonix] 40 mg PO DAILY 10/13/16 [History] Lurasidone HCl [Latuda] 20 mg PO HS 03/10/17 [History] Pregabalin 50 mg [Lyrica 50MG] 50 mg PO DAILY 08/19/18 [History] Atorvastatin Calcium [Lipitor 20MG Tablet] 20 mg PO DAILY 06/01/19 [History] Tizanidine HCl 4 mg [Zanaflex 4 MG] 4 mg PO DAILY 06/01/19 [History] Hx Tetanus, Diphtheria Vaccination/Date Given: Yes Hx Influenza Vaccination/Date Given: No Hx Pneumococcal Vaccination/Date Given: No Travel Risk - International Travel Have you traveled outside of the country in past 3 weeks: No - Coronavirus Screening Are you exhibiting any of the following symptoms?: Yes - Review of Systems Constitutional: No Symptoms, No Fever, No Chills Eyes: No Symptoms Ears, Nose, & Throat: No Symptoms Respiratory: No Symptoms, No Cough, No Dyspnea Cardiac: No Symptoms, No Chest Pain, No Edema, No Syncope Abdominal/Gastrointestinal: No Symptoms, No Abdominal Pain, No Nausea, No Vomiting, No Diarrhea Genitourinary Symptoms: No Symptoms, No Dysuria Musculoskeletal: No Symptoms, No Back Pain, No Neck Pain Skin: No Symptoms, No Rash Neurological: No Symptoms, No Dizziness, No Focal Weakness, No Sensory Changes Psychological: No Symptoms Endocrine: No Symptoms Hematologic/Lymphatic: No Symptoms Immunological/Allergic: No Symptoms All Other Systems: Reviewed and Negative - Past Medical History Pertinent Past Medical History: Yes Neurological History: Migraines ENT History: Other Cardiac History: Hypertension Respiratory History: Asthma Endocrine Medical History: No Pertinent History Musculoskeletal History: Fibromyalgia, Osteoarthritis GI Medical History: GERD History: Other Psycho-Social History: Bipolar, Depression, Other Female Reproductive Disorders: Other Other Medical History: 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 - Past Surgical History Past Surgical History: Yes Neuro Surgical History: No Pertinent History Cardiac: No Pertinent History Respiratory: No Pertinent History Gastrointestinal: Cholecystectomy Genitourinary: No Pertinent History Musculoskeletal: Orthopedic Surgery Female Surgical History: No Pertinent History Other Surgical History: cyst removal x 2, C6-C7 fusion - Social History Smoking Status: Never smoker Exposure to second hand smoke: No Alcohol Use: None Drug Use: none Patient Lives Alone: No Significant Family History: no pertinent family hx - Female History Hx Last Menstrual Period: 04/12/2020 Hx Now: No - Nursing Vital Signs Nursing Vital Signs: Initial Vital Signs Temperature 98.7 F 04/16/20 17:28 Pulse Rate 64 04/16/20 17:28 Blood Pressure 126/89 04/16/20 17:28 O2 Sat by Pulse Oximetry 96 04/16/20 17:28 Pain Scale Pain Intensity 6 - Physical Exam General Appearance: no apparent distress, alert Eye Exam: PERRL/EOMI Neck Exam: normal inspection, supple Respiratory Exam: lungs clear, diminished breath sounds, wheezing (Expiratory wheezing at bases.), No respiratory distress Cardiovascular/Chest Exam: normal heart sounds, regular rate/rhythm Abdominal/Gastrointestinal Exam: soft, No tenderness, No distention, No mass Extremity Exam: non-tender, normal range of motion, normal inspection, no calf tenderness, no pedal edema Peripheral Pulses Exam: dorsalis-pedis (R): 2+, dorsalis-pedis (L): 2+ Neurologic Exam: alert, oriented x 3, cooperative, 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 nml as tested, sensation nml, No motor deficits Skin Exam: normal color, warm, No dry Lymphatic Exam: No adenopathy SpO2 Interpretation: normal SpO2: 97 O2 Delivery: Room Air - Course Nursing assessment & vital signs reviewed: Yes EKG Interpreted by Me: RATE (63), Sinus Rhythm, NORMAL AXIS, NORMAL INTERVALS - Radiology Exams Chest X-ray Interpretation: Interpreted by me (Clear airspace, normal cardiac silhouette, no infiltrate, no consolidation, no pleural effusion, no pneumothorax, normal bony thorax.) - CT Exams Chest CT Interpretation: Tele-radiologist Report (No comps, poor opacification of pulmonary arteries limits PE evaluation. No large central PE observed. Small right base calcified granuloma. Remaining chest CT negative.) Ordered Tests: Active Orders 24 hr Category Date Time Status Evp Of Products & Co Founder STAT Care 04/16/20 17:50 Active EKG-ER Only STAT Care 04/16/20 17:48 Active IV Insertion STAT Care 04/16/20 17:48 Active Pulse Oximetry (ED) STAT Care 04/16/20 17:48 Active CHEST 1 VIEW (PORTABLE) Stat Exams 04/16/20 17:49 Taken CHEST WITH CONTRAST [CT] Stat Exams 04/16/20 18:45 Taken BLOOD CULTURE Stat Lab 04/16/20 18:43 Received CBC W DIFF Stat Lab 04/16/20 18:20 Completed CMP Stat Lab 04/16/20 18:20 Completed D-DIMER QUANTITATIVE Stat Lab 04/16/20 18:20 Completed Lactic Acid Stat Lab 04/16/20 18:30 Completed TROPONIN Q3H Lab 04/16/20 18:20 Completed TROPONIN Q3H Lab 04/16/20 21:00 Ordered UA W/RFX UR CULTURE Stat Lab 04/16/20 18:21 Completed Medication Summary Discontinued Medications Generic Name Dose Route Start Last Admin Trade Name Freq PRN Reason Stop Dose Admin Albuterol/Ipratropium 3 ml 04/16/20 20:33 Duoneb 0.5-3 Mg/3 Ml Neb IH 04/16/20 20:34 STAT ONE Methylprednisolone Sodium Succinate 125 mg 04/16/20 20:33 Solu-Medrol 125 Mg IV 04/16/20 20:34 STAT ONE Lab/Rad Data: Laboratory Result Diagrams 04/16/20 18:20 04/16/20 18:20 Laboratory Results 04/16/20 04/16/20 04/16/20 Range/Units 18:30 18:21 18:20 WBC (4.0-10.5) K/mm3 RBC (4.1-5.4) M/mm3 Hgb (12.0-16.0) gm/dl Hct (35-47) % MCV (78-100) fl MCH (26-32) pg MCHC (32-36) g/dl RDW (11.5-14.0) % Plt Count (150-450) K/mm3 MPV (7.5-11.0) fl Gran % (36.0-66.0) % Eos # (Auto) (0-0.5) Absolute Lymphs (auto) (1.0-4.6) Absolute Monos (auto) (0.0-1.3) Lymphocytes % (24.0-44.0) % Monocytes % (0.0-12.0) % Eosinophils % (0.00-5.0) % Basophils % (0.0-0.4) % Absolute Granulocytes (1.4-6.9) Basophils # (0-0.4) D-Dimer (215-500) ng/mL Sodium (137-145) mmol/L Potassium (3.5-5.1) mmol/L Chloride (98-107) mmol/L Carbon Dioxide (22-30) mmol/L Anion Gap (5-15) MEQ/L BUN (7-17) mg/dL Creatinine (0.52-1.04) mg/dL Estimated GFR ML/MIN Glucose (74-106) mg/dL Lactic Acid 1.0 (0.4-2.0) Calcium (8.4-10.2) mg/dL Total Bilirubin (0.2-1.3) mg/dL AST (14-36) U/L ALT (0-35) U/L Alkaline Phosphatase (38-126) U/L Troponin I < 0.012 (0.000-0.034) ng/mL Serum Total Protein (6.3-8.2) g/dL Albumin (3.5-5.0) g/dL Urine Color STRAW (YELLOW) Urine Appearance CLEAR (CLEAR) Urine pH 7.0 (5-6) Ur Specific Bishop 1.005 (1.005-1.025) Urine Protein NEGATIVE (Negative) Urine Ketones NEGATIVE (NEGATIVE) Urine Blood LARGE (0-5) Amandeep/ul Urine Nitrite NEGATIVE (NEGATIVE) Urine Bilirubin NEGATIVE (NEGATIVE) Urine Urobilinogen NEGATIVE (0-1) mg/dL Ur Leukocyte Esterase NEGATIVE (NEGATIVE) Urine WBC (Auto) NONE (0-5) /HPF Urine RBC (Auto) NONE (0-2) /HPF U Epithel Cells (Auto) NONE (FEW) /HPF Urine Bacteria (Auto) NONE (NEGATIVE) /HPF Urine Culture Reflexed NO (NO) Urine Glucose NEGATIVE (NEGATIVE) mg/dL Influenza Type A Ag (NEGATIVE) Influenza Type B Ag (NEGATIVE) RSV (PCR) (Negative) SARS-CoV-2 (PCR) (NEGATIVE) 04/16/20 04/16/20 04/16/20 Range/Units 18:20 18:20 18:20 WBC (4.0-10.5) K/mm3 RBC (4.1-5.4) M/mm3 Hgb (12.0-16.0) gm/dl Hct (35-47) % MCV (78-100) fl MCH (26-32) pg MCHC (32-36) g/dl RDW (11.5-14.0) % Plt Count (150-450) K/mm3 MPV (7.5-11.0) fl Gran % (36.0-66.0) % Eos # (Auto) (0-0.5) Absolute Lymphs (auto) (1.0-4.6) Absolute Monos (auto) (0.0-1.3) Lymphocytes % (24.0-44.0) % Monocytes % (0.0-12.0) % Eosinophils % (0.00-5.0) % Basophils % (0.0-0.4) % Absolute Granulocytes (1.4-6.9) Basophils # (0-0.4) D-Dimer 699 H* (215-500) ng/mL Sodium 138 (137-145) mmol/L Potassium 4.0 (3.5-5.1) mmol/L Chloride 104 (98-107) mmol/L Carbon Dioxide 28 (22-30) mmol/L Anion Gap 10.9 (5-15) MEQ/L BUN 8 (7-17) mg/dL Creatinine 0.68 (0.52-1.04) mg/dL Estimated GFR > 60.0 ML/MIN Glucose 97 (74-106) mg/dL Lactic Acid (0.4-2.0) Calcium 9.6 (8.4-10.2) mg/dL Total Bilirubin 0.30 (0.2-1.3) mg/dL AST 27 (14-36) U/L ALT 32 (0-35) U/L Alkaline Phosphatase 69 (38-126) U/L Troponin I (0.000-0.034) ng/mL Serum Total Protein 8.6 H (6.3-8.2) g/dL Albumin 4.7 (3.5-5.0) g/dL Urine Color (YELLOW) Urine Appearance (CLEAR) Urine pH (5-6) Ur Specific Bishop (1.005-1.025) Urine Protein (Negative) Urine Ketones (NEGATIVE) Urine Blood (0-5) Amandeep/ul Urine Nitrite (NEGATIVE) Urine Bilirubin (NEGATIVE) Urine Urobilinogen (0-1) mg/dL Ur Leukocyte Esterase (NEGATIVE) Urine WBC (Auto) (0-5) /HPF Urine RBC (Auto) (0-2) /HPF U Epithel Cells (Auto) (FEW) /HPF Urine Bacteria (Auto) (NEGATIVE) /HPF Urine Culture Reflexed (NO) Urine Glucose (NEGATIVE) mg/dL Influenza Type A Ag NEGATIVE (NEGATIVE) Influenza Type B Ag NEGATIVE (NEGATIVE) RSV (PCR) NEGATIVE (Negative) SARS-CoV-2 (PCR) NEGATIVE (NEGATIVE) 04/16/20 Range/Units 18:20 WBC 7.7 (4.0-10.5) K/mm3 RBC 4.33 (4.1-5.4) M/mm3 Hgb 13.7 (12.0-16.0) gm/dl Hct 41.3 (35-47) % MCV 95.4 (78-100) fl MCH 31.6 (26-32) pg MCHC 33.2 (32-36) g/dl RDW 13.3 (11.5-14.0) % Plt Count 286 (150-450) K/mm3 MPV 10.4 (7.5-11.0) fl Gran % 59.7 (36.0-66.0) % Eos # (Auto) 0.25 (0-0.5) Absolute Lymphs (auto) 2.38 (1.0-4.6) Absolute Monos (auto) 0.45 (0.0-1.3) Lymphocytes % 31.0 (24.0-44.0) % Monocytes % 5.9 (0.0-12.0) % Eosinophils % 3.3 (0.00-5.0) % Basophils % 0.1 (0.0-0.4) % Absolute Granulocytes 4.59 (1.4-6.9) Basophils # 0.01 (0-0.4) D-Dimer (215-500) ng/mL Sodium (137-145) mmol/L Potassium (3.5-5.1) mmol/L Chloride (98-107) mmol/L Carbon Dioxide (22-30) mmol/L Anion Gap (5-15) MEQ/L BUN (7-17) mg/dL Creatinine (0.52-1.04) mg/dL Estimated GFR ML/MIN Glucose (74-106) mg/dL Lactic Acid (0.4-2.0) Calcium (8.4-10.2) mg/dL Total Bilirubin (0.2-1.3) mg/dL AST (14-36) U/L ALT (0-35) U/L Alkaline Phosphatase (38-126) U/L Troponin I (0.000-0.034) ng/mL Serum Total Protein (6.3-8.2) g/dL Albumin (3.5-5.0) g/dL Urine Color (YELLOW) Urine Appearance (CLEAR) Urine pH (5-6) Ur Specific Bishop (1.005-1.025) Urine Protein (Negative) Urine Ketones (NEGATIVE) Urine Blood (0-5) Amandeep/ul Urine Nitrite (NEGATIVE) Urine Bilirubin (NEGATIVE) Urine Urobilinogen (0-1) mg/dL Ur Leukocyte Esterase (NEGATIVE) Urine WBC (Auto) (0-5) /HPF Urine RBC (Auto) (0-2) /HPF U Epithel Cells (Auto) (FEW) /HPF Urine Bacteria (Auto) (NEGATIVE) /HPF Urine Culture Reflexed (NO) Urine Glucose (NEGATIVE) mg/dL Influenza Type A Ag (NEGATIVE) Influenza Type B Ag (NEGATIVE) RSV (PCR) (Negative) SARS-CoV-2 (PCR) (NEGATIVE) - Progress Progress: improved Air Movement: good Progress Note: 04/16/20 20:49 Patient reassessed. She is well. Wheezing resolved after nebulizer treatment. Patient received a dose of Solu-Medrol as well. Hematuria observed in urine however patient currently on her menstrual cycle. Patient ambulated in our ED. She was able to maintain a normal oxygen saturation on room air. No desaturation. CTA negative for PE. Chest x-ray clear. EKG normal sinus rhythm. Patient states that she is ready for discharge. Will discharge home. Patient agrees to follow-up with her primary care doctor within 48 hours. Patient given a prescription for prednisone. She has albuterol inhaler at home per patient. 04/16/20 20:53 Blood Culture(s) Obtained: Yes Antibiotics given: No Counseled pt/family regarding: lab results, diagnosis, need for follow-up, rad results - Departure Departure Disposition: Home Clinical Impression: Asthma, SOB (shortness of breath), Myalgia Condition: Stable Critical Care Time: No Referrals: ANDRES MASSEY [Primary Care Provider] - Additional Instructions: Discharge/Care Plan DEVEN GOLD was seen on 04/16/20 in the Emergency Room. The patient was counseled regarding Diagnosis,Lab results, Imaging studies, need for follow up and when to return to the Emergency Room. Prescriptions given: Discharge Note I have spoken with the patient and/or caregivers. I have explained the patient's condition, diagnosis and treatment plan based on the information available to me at this time. I have answered the patient's and/or caregiver's questions and addressed any concerns. The patient and/or caregivers have as good understanding of the patient's diagnosis, condition and treatment plan as can be expected at this point. The vital signs have been stable. The patient's condition is stable and appropriate for discharge from the emergency department. The patient will pursue further outpatient evaluation with the primary care physician or other designated or consulting physician as outlined in the discharge instructions. The patient and/or caregivers are agreeable to this plan of care and follow-up instructions have been explained in detail. The patient and/or caregivers have received these instruction. The patient/and or caregivers are aware that any significant change in condition or worsening of symptoms should prompt an immediate return to this or the closest emergency department or call 911.
[2020-04-16 21:07] VITALS: BP 145/76; PULSE 90; O2SAT 98
--- NOTE | 2020-04-17 08:53 | XRAY ---
Indication: Chest tightness. Short of breath and dizziness. Multiple contiguous axial images obtained through the chest using 80 cc Isovue 370 contrast and PE protocol. Comparison: None There is poor opacification of the pulmonary arteries limiting evaluation for pulmonary embolus. No large central pulmonary embolus. Heart is not enlarged. Aorta is normal in course and caliber. A few tiny right hilar and subcarinal calcified nodes. No pathologic mediastinal/hilar lymphadenopathy. Lungs inflated with right lower lobe calcified granuloma. No suspicious pulmonary mass, infiltrate, or effusion. Bony thorax intact with minimal degenerative changes throughout the spine and epidural spinal leads terminating T8-T9 level. Limited upper abdomen demonstrates cholecystectomy clips and nonobstructing left renal micro-calculi. Impression: 1. Pulmonary embolus evaluation limited due to suboptimal opacification. No large central pulmonary embolus. 2. No acute cardiopulmonary abnormalities. 3. Incidental nonobstructing left renal micro-calculi and old granulomatous disease.
--- NOTE | 2020-04-17 08:56 | XRAY ---
Indication: Short of breath. Comparison: January 21, 2020. Portable chest again demonstrates normal heart and lungs. Bony thorax intact with new epidural stimulator leads terminating T9 level.
== END 2020-04-16 21:08 | disposition home or self-care (01) ==
LOC: ED 17:25
DX: J45.909 Unspecified asthma, uncomplicated (principal); R06.02 Shortness of breath; M79.10 Myalgia, unspecified site
CPT/HCPCS: 36000; 36415; 71045; 71260; 80053; 81001; 83605; 84484; 85025; 85379; 87040; 87631; 93005; 93041; 94150; 94640; 94760; 96374; 99284; U0003; J2930; A9270-GY

== ENCOUNTER 2020-11-01 19:14 | Emergency (ER) | payer MEDICARE ==
[2020-11-01 19:42] VITALS: O2SAT 98
[2020-11-01 20:37] LABS: Absolute Neutrophil Ct (ANC) 5.84 (1.4-6.9); BASOPHIL % 0.1 % (0.0-0.4); Basophil (Absolute #) 0.01 (0-0.4); Eosinophil % 1.7 % (0.00-5.0); Eosinophil (Absolute #) 0.15 (0-0.5); Hematocrit 42.4 % (35-47); Hemoglobin 13.8 gm/dl (12.0-16.0); Lymphocyte (Absolute #) 2.43 (1.0-4.6); Lymphocytes % 27.5 % (24.0-44.0); Mean Cell Volume 97.7 fl (78-100); Mean Corpuscular Hemoglobin 31.8 pg (26-32); Mean Corpuscular Hgb Concent. 32.5 g/dl (32-36); Monocyte (Absolute #) 0.42 (0.0-1.3); Monocytes % 4.7 % (0.0-12.0); Platelet Count 271 K/mm3 (150-450); Red Blood Count 4.34 M/mm3 (4.1-5.4); Red Cell Distribution Width 13.3 % (11.5-14.0); White Blood Count 8.9 K/mm3 (4.0-10.5)
[2020-11-01 20:43] LABS: Amourphous Crystal FEW /HPF (NEGATIVE); Appearance CLOUDY (CLEAR); Bilirubin NEGATIVE (NEGATIVE); Blood MODERATE Ery/ul (0-5); Epithelial Cells RARE /HPF (FEW); Glucose NEGATIVE (NEGATIVE); Ketones NEGATIVE (NEGATIVE); Leukocyte Esterase MODERATE (NEGATIVE); Mucus SLIGHT /HPF (NEGATIVE); Nitrite NEGATIVE (NEGATIVE); Protein,Urine Dip NEGATIVE (Negative); Urobilinogen NEGATIVE mg/dL (0-1)
[2020-11-01 20:44] LABS: INR 1.18 (0.8-3.0); PROTIME 13.3 SECONDS (9.95-12.35)
[2020-11-01 20:50] LABS: ALBUMIN 4.6 g/dL (3.5-5.0); ALKALINE PHOSPHATASE 64 U/L (38-126); ANION GAP 12.7 MEQ/L (5-15); BLOOD UREA NITROGEN 11 mg/dL (7-17); CHLORIDE 103 mmol/L (98-107); Calcium 9.9 mg/dL (8.4-10.2); Carbon Dioxide 26 mmol/L (22-30); Creatinine 1 0.72 mg/dL (0.52-1.04); EST GLOMERULAR FILTRATION RATE > 60.0 ML/MIN; Glucose 111 mg/dL (74-106); Potassium 3.9 mmol/L (3.5-5.1); SGOT/AST 28 U/L (14-36); SGPT/ALT 41 U/L (0-35); SODIUM 138 mmol/L (137-145); Total Protein 8.5 g/dL (6.3-8.2)
[2020-11-01 21:05] LABS: INFLUENZA A NEGATIVE (NEGATIVE); INFLUENZA B NEGATIVE (NEGATIVE)
--- NOTE | 2020-11-01 21:11 | ERPHSYRPT ---
- History of Present Illness Time Seen by Provider: 11/01/20 19:50 Source: patient Exam Limitations: no limitations Patient Subjective Stated Complaint: pt c/o cough, chest congestion, headache. Triage Nursing Assessment: pt c/o cough, chest congestion, sob, fatigued and headache x5 days but has just gotten worse as the days have gone on. Lungs clear ant and rales post, heart tones reg, abd soft with active bs x4 quad, nontender. Physician History: Patient is a 34-year-old white female who presents with a complaint of shortness of breath and cough several days. She presents with her 10-year-old daughter who is also been sick for about a week the cough is productive of junky-looking sputum and she also complains of a headache and sinus congestion. Timing/Duration: week(s) (1) Cough Quality/Degree: productive cough, sputum Possible Cause: occasional episodes Modifying Factors: Improves With: coughing Associated Symptoms: cough, nasal congestion, nasal drainage, No fever Allergies/Adverse Reactions: barley Allergy (Mild, Verified 11/01/20 19:51) wheat Allergy (Mild, Verified 11/01/20 19:51) corn Allergy (Verified 11/01/20 19:51) gluten Allergy (Verified 11/01/20 19:51) magnesium citrate Allergy (Verified 11/01/20 19:51) morphine Allergy (Verified 11/01/20 19:51) Rash venom-honey bee [bee venom (honey bee)] Allergy (Verified 11/01/20 19:51) seasonal allergies Allergy (Mild, Uncoded 11/01/20 19:51) Difficulty Breathing Home Medications: Albuterol 2.5 mg/3 ml Neb [Proventil 2.5 mg/3 ml Neb] 2.5 mg IH DAILY 10/13/16 [History] Bupropion HCl [Wellbutrin Sr] 150 mg PO DAILY 10/13/16 [History] Mometasone/Formoterol [Dulera 100 Mcg-5 Mcg Inhaler] 13 gm IH Q4H PRN PRN 10/13/16 [History] Lurasidone HCl [Latuda] 20 mg PO HS 03/10/17 [History] Pregabalin 50 mg [Lyrica 50MG] 50 mg PO DAILY 08/19/18 [History] Atorvastatin Calcium [Lipitor 20MG Tablet] 20 mg PO DAILY 06/01/19 [History] Tizanidine HCl 4 mg [Zanaflex 4 MG] 4 mg PO DAILY 06/01/19 [History] Hx Tetanus, Diphtheria Vaccination/Date Given: Yes Hx Influenza Vaccination/Date Given: Yes Hx Pneumococcal Vaccination/Date Given: Yes Immunizations Up to Date: Yes Travel Risk - International Travel Have you traveled outside of the country in past 3 weeks: No - Coronavirus Screening Are you exhibiting any of the following symptoms?: Yes Symptoms: Cough: New Onset, Shortness of Breath, Headaches/Body Aches/Fatigue Close contact with a COVID-19 positive Pt in past 14-21 Days: No - Vaccine Status Have you recieved a Covid-19 vaccination: Yes Crystal Report Developer: Moderna - Vaccination Dates Date of 2cond Vaccination (if applicable): n/a Comment: pts card is at home - Review of Systems Constitutional: No Fever, No Chills Eyes: No Symptoms Ears, Nose, & Throat: No Symptoms, Nose Congestion, Nose Discharge, Sinus Drainage Respiratory: Cough, No Dyspnea Cardiac: No Chest Pain, No Edema, No Syncope Abdominal/Gastrointestinal: No Abdominal Pain, No Nausea, No Vomiting, No Diarrhea Genitourinary Symptoms: No Dysuria Musculoskeletal: No Back Pain, No Neck Pain Skin: No Rash Neurological: No Dizziness, No Focal Weakness, No Sensory Changes Psychological: No Symptoms Endocrine: No Symptoms All Other Systems: Reviewed and Negative - Past Medical History Pertinent Past Medical History: Yes Neurological History: No Pertinent History ENT History: Other Cardiac History: High Cholesterol, Hypertension Respiratory History: Asthma, COPD Endocrine Medical History: No Pertinent History Musculoskeletal History: Arthritis, Fibromyalgia, Osteoarthritis GI Medical History: GERD History: Other Psycho-Social History: Bipolar, Depression, Other Female Reproductive Disorders: Other Other Medical History: PATIENT REPORTS DX'D WITH FIBRO 3 YEARS AGO. HX OF ARTHRITIS IN THE KNEES. HX OF P.T. FOR BACK, NECK (C7 FUSION), AND SHOULDER. NEUROSTIMULATOR IMPLANT FOR PAIN IN ANKLE. HX OF BIPOLAR. kidney stones - Past Surgical History Past Surgical History: Yes Neuro Surgical History: No Pertinent History Cardiac: No Pertinent History Respiratory: No Pertinent History Gastrointestinal: Cholecystectomy Genitourinary: No Pertinent History Musculoskeletal: Orthopedic Surgery Female Surgical History: No Pertinent History Other Surgical History: cyst removal x 2, C6-C7 fusion - Social History Smoking Status: Never smoker Exposure to second hand smoke: Yes Alcohol Use: None Drug Use: none Patient Lives Alone: No Significant Family History: no pertinent family hx - Female History Hx Now: No - Nursing Vital Signs Nursing Vital Signs: Initial Vital Signs Temperature 98.5 F 11/01/20 19:41 Pulse Rate 98 H 11/01/20 19:41 Respiratory Rate 20 11/01/20 19:41 Blood Pressure 128/78 11/01/20 19:41 O2 Sat by Pulse Oximetry 98 11/01/20 19:41 Pain Scale Pain Intensity 4 - Physical Exam General Appearance: no apparent distress, mild distress, alert Eye Exam: PERRL/EOMI, eyes nml inspection Ears, Nose, Throat Exam: normal ENT inspection, TMs normal, pharynx normal, moist mucous membranes Neck Exam: normal inspection, non-tender, supple, full range of motion Respiratory Exam: normal breath sounds, lungs clear, No respiratory distress Cardiovascular Exam: regular rate/rhythm, normal heart sounds Gastrointestinal/Abdomen Exam: soft, No tenderness Back Exam: normal inspection, No CVA tenderness, No vertebral tenderness Extremity Exam: normal inspection, normal range of motion Neurologic Exam: alert, oriented x 3, cooperative, normal mood/affect, sensation nml, No motor deficits Skin Exam: normal color, warm, dry, No rash Lymphatic Exam: No adenopathy SpO2: 98 - Radiology Exams Chest X-ray Interpretation: Interpreted by me, Negative Ordered Tests: Active Orders 24 hr Category Date Time Status CHEST 1 VIEW (PORTABLE) Stat Exams 11/01/20 19:40 Taken CBC W DIFF Stat Lab 11/01/20 19:45 Completed CMP Stat Lab 11/01/20 19:45 Completed CULTURE,URINE Stat Lab 11/01/20 20:21 Received HCG QUALITATIVE,SERUM Stat Lab 11/01/20 19:45 Completed INFLUENZA A+B INDIRA Stat Lab 11/01/20 19:45 Completed Lactic Acid Stat Lab 11/01/20 20:42 Completed PROCALCITONIN Stat Lab 11/01/20 19:45 Received PROTIME WITH INR Stat Lab 11/01/20 19:45 Completed UA W/RFX UR CULTURE Stat Lab 11/01/20 20:21 Completed Lab/Rad Data: Laboratory Result Diagrams 11/01/20 19:45 11/01/20 19:45 Laboratory Results 11/01/20 11/01/20 11/01/20 Range/Units 20:42 20:21 19:45 WBC (4.0-10.5) K/mm3 RBC (4.1-5.4) M/mm3 Hgb (12.0-16.0) gm/dl Hct (35-47) % MCV (78-100) fl MCH (26-32) pg MCHC (32-36) g/dl RDW (11.5-14.0) % Plt Count (150-450) K/mm3 MPV (7.5-11.0) fl Gran % (36.0-66.0) % Eos # (Auto) (0-0.5) Absolute Lymphs (auto) (1.0-4.6) Absolute Monos (auto) (0.0-1.3) Lymphocytes % (24.0-44.0) % Monocytes % (0.0-12.0) % Eosinophils % (0.00-5.0) % Basophils % (0.0-0.4) % Absolute Granulocytes (1.4-6.9) Basophils # (0-0.4) PT (9.95-12.35) SECONDS INR (0.8-3.0) Sodium (137-145) mmol/L Potassium (3.5-5.1) mmol/L Chloride (98-107) mmol/L Carbon Dioxide (22-30) mmol/L Anion Gap (5-15) MEQ/L BUN (7-17) mg/dL Creatinine (0.52-1.04) mg/dL Estimated GFR ML/MIN Glucose (74-106) mg/dL Lactic Acid 1.6 (0.4-2.0) Calcium (8.4-10.2) mg/dL Total Bilirubin (0.2-1.3) mg/dL AST (14-36) U/L ALT (0-35) U/L Alkaline Phosphatase (38-126) U/L Serum Total Protein (6.3-8.2) g/dL Albumin (3.5-5.0) g/dL Serum , Qual NEGATIVE (Negative) Urine Color YELLOW (YELLOW) Urine Appearance CLOUDY (CLEAR) Urine pH 5.0 (5-6) Ur Specific [place] 1.020 (1.005-1.025) Urine Protein NEGATIVE (Negative) Urine Ketones NEGATIVE (NEGATIVE) Urine Blood MODERATE (0-5) Amandeep/ul Urine Nitrite NEGATIVE (NEGATIVE) Urine Bilirubin NEGATIVE (NEGATIVE) Urine Urobilinogen NEGATIVE (0-1) mg/dL Ur Leukocyte Esterase MODERATE (NEGATIVE) Urine WBC (Auto) 6-10 (0-5) /HPF Urine RBC (Auto) 6-10 (0-2) /HPF U Epithel Cells (Auto) RARE (FEW) /HPF Urine Bacteria (Auto) NONE (NEGATIVE) /HPF Amorphous Crystals FEW (NEGATIVE) /HPF Urine Mucus (Auto) SLIGHT (NEGATIVE) /HPF Urine Culture Reflexed YES (NO) Urine Glucose NEGATIVE (NEGATIVE) mg/dL Influenza Type A Ag (NEGATIVE) Influenza Type B Ag (NEGATIVE) Group A Strep Antibody (NEGATIVE) 11/01/20 11/01/20 11/01/20 Range/Units 19:45 19:45 19:45 WBC (4.0-10.5) K/mm3 RBC (4.1-5.4) M/mm3 Hgb (12.0-16.0) gm/dl Hct (35-47) % MCV (78-100) fl MCH (26-32) pg MCHC (32-36) g/dl RDW (11.5-14.0) % Plt Count (150-450) K/mm3 MPV (7.5-11.0) fl Gran % (36.0-66.0) % Eos # (Auto) (0-0.5) Absolute Lymphs (auto) (1.0-4.6) Absolute Monos (auto) (0.0-1.3) Lymphocytes % (24.0-44.0) % Monocytes % (0.0-12.0) % Eosinophils % (0.00-5.0) % Basophils % (0.0-0.4) % Absolute Granulocytes (1.4-6.9) Basophils # (0-0.4) PT 13.3 H (9.95-12.35) SECONDS INR 1.18 (0.8-3.0) Sodium 138 (137-145) mmol/L Potassium 3.9 (3.5-5.1) mmol/L Chloride 103 (98-107) mmol/L Carbon Dioxide 26 (22-30) mmol/L Anion Gap 12.7 (5-15) MEQ/L BUN 11 (7-17) mg/dL Creatinine 0.72 (0.52-1.04) mg/dL Estimated GFR > 60.0 ML/MIN Glucose 111 H (74-106) mg/dL Lactic Acid (0.4-2.0) Calcium 9.9 (8.4-10.2) mg/dL Total Bilirubin 0.30 (0.2-1.3) mg/dL AST 28 (14-36) U/L ALT 41 H (0-35) U/L Alkaline Phosphatase 64 (38-126) U/L Serum Total Protein 8.5 H (6.3-8.2) g/dL Albumin 4.6 (3.5-5.0) g/dL Serum , Qual (Negative) Urine Color (YELLOW) Urine Appearance (CLEAR) Urine pH (5-6) Ur Specific [place] (1.005-1.025) Urine Protein (Negative) Urine Ketones (NEGATIVE) Urine Blood (0-5) Amandeep/ul Urine Nitrite (NEGATIVE) Urine Bilirubin (NEGATIVE) Urine Urobilinogen (0-1) mg/dL Ur Leukocyte Esterase (NEGATIVE) Urine WBC (Auto) (0-5) /HPF Urine RBC (Auto) (0-2) /HPF U Epithel Cells (Auto) (FEW) /HPF Urine Bacteria (Auto) (NEGATIVE) /HPF Amorphous Crystals (NEGATIVE) /HPF Urine Mucus (Auto) (NEGATIVE) /HPF Urine Culture Reflexed (NO) Urine Glucose (NEGATIVE) mg/dL Influenza Type A Ag (NEGATIVE) Influenza Type B Ag (NEGATIVE) Group A Strep Antibody NOT DETECTED (NEGATIVE) 11/01/20 11/01/20 Range/Units 19:45 19:45 WBC 8.9 (4.0-10.5) K/mm3 RBC 4.34 (4.1-5.4) M/mm3 Hgb 13.8 (12.0-16.0) gm/dl Hct 42.4 (35-47) % MCV 97.7 (78-100) fl MCH 31.8 (26-32) pg MCHC 32.5 (32-36) g/dl RDW 13.3 (11.5-14.0) % Plt Count 271 (150-450) K/mm3 MPV 10.0 (7.5-11.0) fl Gran % 66.0 (36.0-66.0) % Eos # (Auto) 0.15 (0-0.5) Absolute Lymphs (auto) 2.43 (1.0-4.6) Absolute Monos (auto) 0.42 (0.0-1.3) Lymphocytes % 27.5 (24.0-44.0) % Monocytes % 4.7 (0.0-12.0) % Eosinophils % 1.7 (0.00-5.0) % Basophils % 0.1 (0.0-0.4) % Absolute Granulocytes 5.84 (1.4-6.9) Basophils # 0.01 (0-0.4) PT (9.95-12.35) SECONDS INR (0.8-3.0) Sodium (137-145) mmol/L Potassium (3.5-5.1) mmol/L Chloride (98-107) mmol/L Carbon Dioxide (22-30) mmol/L Anion Gap (5-15) MEQ/L BUN (7-17) mg/dL Creatinine (0.52-1.04) mg/dL Estimated GFR ML/MIN Glucose (74-106) mg/dL Lactic Acid (0.4-2.0) Calcium (8.4-10.2) mg/dL Total Bilirubin (0.2-1.3) mg/dL AST (14-36) U/L ALT (0-35) U/L Alkaline Phosphatase (38-126) U/L Serum Total Protein (6.3-8.2) g/dL Albumin (3.5-5.0) g/dL Serum , Qual (Negative) Urine Color (YELLOW) Urine Appearance (CLEAR) Urine pH (5-6) Ur Specific [place] (1.005-1.025) Urine Protein (Negative) Urine Ketones (NEGATIVE) Urine Blood (0-5) Amandeep/ul Urine Nitrite (NEGATIVE) Urine Bilirubin (NEGATIVE) Urine Urobilinogen (0-1) mg/dL Ur Leukocyte Esterase (NEGATIVE) Urine WBC (Auto) (0-5) /HPF Urine RBC (Auto) (0-2) /HPF U Epithel Cells (Auto) (FEW) /HPF Urine Bacteria (Auto) (NEGATIVE) /HPF Amorphous Crystals (NEGATIVE) /HPF Urine Mucus (Auto) (NEGATIVE) /HPF Urine Culture Reflexed (NO) Urine Glucose (NEGATIVE) mg/dL Influenza Type A Ag NEGATIVE (NEGATIVE) Influenza Type B Ag NEGATIVE (NEGATIVE) Group A Strep Antibody (NEGATIVE) - Progress Progress: unchanged Air Movement: good Blood Culture(s) Obtained: No Antibiotics given: Yes - Departure Departure Disposition: Home Clinical Impression: Bronchitis Condition: Stable Critical Care Time: No Instructions: Cough, Adult (DC) Additional Instructions: Isolation until results of the Covid test are known Prescriptions: Cephalexin Mh 500 mg [Keflex 500 mg] 500 mg PO QID #40 capsule
[2020-11-01 21:13] VITALS: BP 122/71; PULSE 90
--- NOTE | 2020-11-02 08:50 | XRAY ---
Exam: AP upright portable chest film from 11/01/2020. Comparison: AP upright portable chest film from 04/16/2020. Indication: Cough, fever, spinal stimulator. Findings: The heart size and contour are normal. The yesenia and mediastinal structures appear unremarkable. There is average inflation of the lungs. The peripheral lung cortez reveal no air space infiltrates, vascular congestion, pneumothorax, or pleural effusion. Orthopedic hardware within the lower cervical spine is partially seen at the superior margin of the radiograph consistent with prior anterior cervical disc fusion. Spinal stimulator device is again seen with the epidural lead tips pointing superiorly at the T8-T9 level. Surgical clips consistent with prior cholecystectomy are again seen within the right upper quadrant. There is slight convexity of the upper thoracic spine toward the left and the midthoracic spine toward the right. Impression: 1. No air space infiltrates or other acute cardiopulmonary disease is seen - no change from 04/16/2020. 2. Other chronic findings, as discussed above.
== END 2020-11-01 21:23 | disposition home or self-care (01) ==
LOC: ED 19:14
DX: J20.9 Acute bronchitis, unspecified (principal); R06.02 Shortness of breath; Z79.899 Other long term (current) drug therapy
CPT/HCPCS: 36415; 71045; 80053; 81001; 81025; 83605; 84145; 85025; 85610; 87086; 87400; 87651; 99284; U0003

== ENCOUNTER 2020-12-01 19:17 | Emergency (ER) | payer MEDICARE ==
--- NOTE | 2020-12-01 19:42 | ERPHSYRPT ---
- History of Present Illness Time Seen by Provider: 12/01/20 19:35 Source: patient Exam Limitations: no limitations Physician History: This is an obese 35-year-old white female with a history of COPD, asthma, hypertension, gastroesophageal reflux disease, bipolar disorder, and depression who presents with a 2-week history of intermittent and worsening right calf pain. Patient states that she has had a history of DVT in the past although she has never had a venous Doppler on her lower extremities per her report. She stated that Dr. Massey had put her on a blood thinning medication in the hospital and kept that going for approximately 2 weeks after discharge. I reviewed the report from a CAT scan of the chest in April 2020. There is no evidence of any pulmonary emboli on that CAT scan. Patient currently is not on any anticoagulation therapy. She is not short of breath. She has no chest pain. Patient had a D-dimer drawn earlier today. She was called and told that she needed to come to the emergency department to evaluate for deep venous thrombosis. Patient has no known bleeding or clotting disorders. Method of Injury: unknown Occurred: other (2 weeks) Quality: intermittent, cramping (Right calf) Severity of Pain-Max: mild Severity of Pain-Current: mild Lower Extremities Pain: other: right (Right calf) Associated Symptoms: none Allergies/Adverse Reactions: barley Allergy (Mild, Verified 12/01/20 19:26) wheat Allergy (Mild, Verified 12/01/20 19:26) corn Allergy (Verified 12/01/20 19:26) gluten Allergy (Verified 12/01/20 19:26) magnesium citrate Allergy (Verified 12/01/20 19:26) morphine Allergy (Verified 12/01/20 19:26) Rash venom-honey bee [bee venom (honey bee)] Allergy (Verified 12/01/20 19:26) seasonal allergies Allergy (Mild, Uncoded 12/01/20 19:26) Difficulty Breathing Home Medications: Albuterol 2.5 mg/3 ml Neb [Proventil 2.5 mg/3 ml Neb] 2.5 mg IH DAILY 10/13/16 [History] Bupropion HCl [Wellbutrin Sr] 150 mg PO DAILY 10/13/16 [History] Mometasone/Formoterol [Dulera 100 Mcg-5 Mcg Inhaler] 13 gm IH Q4H PRN PRN 10/13/16 [History] Lurasidone HCl [Latuda] 20 mg PO HS 03/10/17 [History] Pregabalin 50 mg [Lyrica 50MG] 50 mg PO DAILY 08/19/18 [History] Atorvastatin Calcium [Lipitor 20MG Tablet] 20 mg PO DAILY 06/01/19 [History] Tizanidine HCl 4 mg [Zanaflex 4 MG] 4 mg PO DAILY 06/01/19 [History] Hx Tetanus, Diphtheria Vaccination/Date Given: Yes Hx Influenza Vaccination/Date Given: Yes Hx Pneumococcal Vaccination/Date Given: Yes Travel Risk - International Travel Have you traveled outside of the country in past 3 weeks: No - Coronavirus Screening Are you exhibiting any of the following symptoms?: No Close contact with a COVID-19 positive Pt in past 14-21 Days: No - Vaccine Status Have you recieved a Covid-19 vaccination: Yes Edging Machine Feeder: Moderna - Vaccination Dates Date of 2cond Vaccination (if applicable): n/a Comment: pts card is at home - Review of Systems Constitutional: No Symptoms Eyes: No Symptoms Ears, Nose, & Throat: No Symptoms Respiratory: No Symptoms Cardiac: No Symptoms Abdominal/Gastrointestinal: No Symptoms Genitourinary Symptoms: No Symptoms Musculoskeletal: Other (Right calf cramping pain) Skin: No Symptoms Neurological: No Symptoms Psychological: No Symptoms Endocrine: No Symptoms Hematologic/Lymphatic: No Symptoms Immunological/Allergic: No Symptoms All Other Systems: Reviewed and Negative - Past Medical History Pertinent Past Medical History: Yes Neurological History: No Pertinent History ENT History: Other Cardiac History: High Cholesterol, Hypertension Respiratory History: Asthma, COPD Endocrine Medical History: No Pertinent History Musculoskeletal History: Arthritis, Fibromyalgia, Osteoarthritis GI Medical History: GERD History: Other Psycho-Social History: Bipolar, Depression, Other Female Reproductive Disorders: Other Other Medical History: PATIENT REPORTS DX'D WITH FIBRO 3 YEARS AGO. HX OF ARTHRITIS IN THE KNEES. HX OF P.T. FOR BACK, NECK (C7 FUSION), AND SHOULDER. NEUROSTIMULATOR IMPLANT FOR PAIN IN ANKLE. HX OF BIPOLAR. kidney stones - Past Surgical History Past Surgical History: Yes Neuro Surgical History: No Pertinent History Cardiac: No Pertinent History Respiratory: No Pertinent History Gastrointestinal: Cholecystectomy Genitourinary: No Pertinent History Musculoskeletal: Orthopedic Surgery Female Surgical History: No Pertinent History Other Surgical History: cyst removal x 2, C6-C7 fusion - Social History Smoking Status: Never smoker Exposure to second hand smoke: Yes Alcohol Use: None Drug Use: none Patient Lives Alone: No Significant Family History: no pertinent family hx - Nursing Vital Signs Nursing Vital Signs: Initial Vital Signs Temperature 99.5 F 12/01/20 19:26 Pulse Rate 88 12/01/20 19:26 Respiratory Rate 18 12/01/20 19:26 Blood Pressure 142/91 12/01/20 19:26 O2 Sat by Pulse Oximetry 98 12/01/20 19:26 Pain Scale Pain Intensity 4 - Physical Exam General Appearance: no apparent distress, alert, anxiety, obese Eyes, Ears, Nose, Throat Exam: normal ENT inspection, moist mucous membranes Neck Exam: normal inspection, non-tender, supple, full range of motion Cardiovascular/Respiratory Exam: chest non-tender, no respiratory distress Gastrointestinal/Abdominal Exam: non-tender Back Exam: normal inspection, normal range of motion, No CVA tenderness, No vertebral tenderness Hips Exam: bilateral: non-tender, normal inspection, normal range of motion, no evidence of injury Legs Exam: right leg: normal inspection, normal range of motion, no evidence of injury, soft tissue tenderness (Right calf tenderness. No palpable cord present. When I reviewed her from the caudal to cranial position her calfs are symmetric.), left leg: non-tender Knees Exam: bilateral knee: non-tender, normal inspection, normal range of motion, no evidence of injury Ankle Exam: bilateral ankle: non-tender, normal inspection, normal range of motion, no evidence of injury Foot Exam: bilateral foot: non-tender, normal inspection, normal range of motion, no evidence of injury Neuro/Tendon Exam: normal sensation, normal motor functions, normal tendon functions, responds to pain Mental Status Exam: alert, oriented x 3, cooperative Skin Exam: normal color, warm, dry SpO2 Interpretation: normal O2 Delivery: Room Air Ordered Tests: Active Orders 24 hr Category Date Time Status VENOUS UNILAT/LIMITED EXTREMIT [US] Stat Exams 12/01/20 20:54 Taken - Progress Progress: pain not gone completely, re-examined Progress Note: 12/01/20 21:03 venous Doppler of symptomatic right lower extremity shows no evidence of DVT. Counseled pt/family regarding: diagnosis, need for follow-up, rad results - Departure Departure Disposition: Home Clinical Impression: Right leg pain Condition: Stable Critical Care Time: No Referrals: ANDRES MASSEY [Primary Care Provider] - Additional Instructions: Use Tylenol and ibuprofen for pain control. Follow-up with your primary care physician for further management
[2020-12-01 21:08] VITALS: BP 120/97; PULSE 68; O2SAT 98
--- NOTE | 2020-12-02 08:52 | XRAY ---
Indication: Right leg pain. Elevated d-dimer. Two-dimensional sonogram and color Doppler imaging of the major venous vessels of the right leg was performed. Comparison: None No thrombus seen in the examined deep venous vessels of the right leg including greater saphenous vein. Veins demonstrate normal compressibility. Venous waveforms are normal with and without augmentation. Impression: Right leg negative for DVT. Comment: Preliminary report was given.
== END 2020-12-01 21:11 | disposition home or self-care (01) ==
LOC: ED 19:17
DX: M79.661 Pain in right lower leg (principal)
CPT/HCPCS: 36000; 36415; 80048; 83735; 85027; 85379; 93971; 99284

== ENCOUNTER 2021-05-05 11:36 | Day surgery (SDC) | payer MEDICARE ==
[2013-03-25 12:36] VITALS: BP 138/77
[2021-05-05] MEDS ORDERED: Xylocaine 1% Vial 30 ML PF IJ ONE (11:37)
[2021-05-05] MEDS ORDERED: LIDOCAINE HCL 2% 100 MG/5 ML IJ ONE (11:37)
[2021-05-05] MEDS ORDERED: Depo-Medrol 40 MG/ML IM ONE (11:37)
[2021-05-05] MEDS ORDERED: Versed 2 MG/2 ML Injection ONE (12:32)
[2021-05-05] MEDS ORDERED: DIPRIVAN 200 MG/20 ML IV ONE (13:49)
--- NOTE | 2021-05-05 15:00 | XRAY ---
Indication: Bilateral L4-S1 MBB. Intraoperative fluoroscopy provided for 19 seconds. Single digital spot image submitted for interpretation demonstrates posterior needle tips projecting over the expected left and right L4-S1 nerve roots. Correlate with intraoperative findings/report.
--- NOTE | 2021-05-05 15:30 | XRAY ---
19 seconds fluoroscopy time in surgery for bilateral L4-S1 MBB.
[2021-05-05] MEDS ORDERED: Lactated Ringers 1,000 ML IV ONE (17:27)
== END 2021-05-05 14:15 | disposition home or self-care (01) ==
LOC: SDC-PAIN 11:36
PROVIDERS: ATTEND Psychiatry & Neurology Pain Medicine
DX: M47.816 Spondylosis without myelopathy or radiculopathy, lumbar region (principal); I10 Essential (primary) hypertension; J45.909 Unspecified asthma, uncomplicated; M19.90 Unspecified osteoarthritis, unspecified site; K21.9 Gastro-esophageal reflux disease without esophagitis; D64.9 Anemia, unspecified; F41.9 Anxiety disorder, unspecified; F32.9 Major depressive disorder, single episode, unspecified; Z79.899 Other long term (current) drug therapy
CPT/HCPCS: 64493; 64494; 72020; 77002; 84703; J1030; J2001; J2250; J2704

== ENCOUNTER 2021-06-09 11:49 | Day surgery (SDC) | payer MEDICARE ==
[2013-03-25 12:36] VITALS: BP 138/77
[2021-06-09] MEDS ORDERED: Depo-Medrol 40 MG/ML IM ONE (11:50)
[2021-06-09] MEDS ORDERED: BUPIVACAINE 0.5% VIAL IJ ONE (11:50)
[2021-06-09] MEDS ORDERED: VERSED 5 MG/5 ML ONE (13:56)
[2021-06-09] MEDS ORDERED: DIPRIVAN 200 MG/20 ML IV ONE (14:15)
[2021-06-09] MEDS ORDERED: Lactated Ringers 1,000 ML IV ONE (14:32)
--- NOTE | 2021-06-09 16:38 | XRAY ---
Indication: Bilateral L4-S1 MBB. Intraoperative fluoroscopy provided for 25 seconds. Single digital spot image submitted for interpretation demonstrates posterior needle tips projecting over the expected left and right L4-S1 nerve roots. Correlate with intraoperative findings/report.
--- NOTE | 2021-06-09 16:54 | XRAY ---
25 seconds fluoroscopy time in surgery for bilateral L4-S1 MBB.
== END 2021-06-09 14:40 | disposition home or self-care (01) ==
LOC: SDC-PAIN 11:49
PROVIDERS: ATTEND Psychiatry & Neurology Pain Medicine
DX: M47.816 Spondylosis without myelopathy or radiculopathy, lumbar region (principal); I10 Essential (primary) hypertension; D64.9 Anemia, unspecified; F41.9 Anxiety disorder, unspecified; F32.9 Major depressive disorder, single episode, unspecified; Z79.899 Other long term (current) drug therapy
CPT/HCPCS: 64493; 64494; 72020; 77002; 84703; J1030; J2250; J2704

== ENCOUNTER 2021-11-28 23:19 | Emergency (ER) | payer MEDICARE ==
[2021-11-28] MEDS ORDERED: HYDROCODONE-ACETAMIN 2.5-108/5 ML SOLUTION ONE (23:55)
[2021-11-28] MEDS: HYDROCODONE-ACETAMIN 2.5-108/5 ML SOLUTION PO STA (23:56)
--- NOTE | 2021-11-29 00:17 | ERPHSYRPT ---
- History of Present Illness Time Seen by Provider: 11/28/21 23:28 Source: patient Exam Limitations: no limitations Patient Subjective Stated Complaint: pt states "I started coughing on monday. I lost my taste and smell today and I think I have covid." Triage Nursing Assessment: Pt alert and oriented x3, pt c/o cough, loss of taste and smell, and nasal congestion x2 days, pt has hx of asthma, pt denies fever, headache, sob, chest pain at this time, pt is afebrile, skin pink warm and dry, mucous membranes pink and moist Physician History: 36-year-old female with history of anxiety depression/bipolar disorder/asthma presented to the ER with wet to dry cough since yesterday with body aches fatigue tiredness and today noticed loss of taste and smell. Patient also reports having bouts of coughing followed by gagging earlier this morning which is improved now. No abdominal pain. No fever or chills reported. Daughter has similar symptoms and other people at work are also sick with same symptoms. Vaccinated for COVID-19. Because of repeated coughing having generalized chest soreness. Timing/Duration: yesterday Cough Quality/Degree: moderate, dry cough, productive cough Possible Cause: illness exposure Modifying Factors: Improves With: albuterol inhaler. Worsens With: coughing Associated Symptoms: chest pain/soreness, headache, muscle aches, nasal congestion, nasal drainage, sore throat, wheezing, No cough, No shortness of breath Allergies/Adverse Reactions: barley Allergy (Mild, Verified 12/01/20 19:26) wheat Allergy (Mild, Verified 12/01/20 19:26) corn Allergy (Verified 12/01/20 19:26) gluten Allergy (Verified 12/01/20 19:26) magnesium citrate Allergy (Verified 12/01/20 19:26) morphine Allergy (Verified 12/01/20 19:26) Rash venom-honey bee [bee venom (honey bee)] Allergy (Verified 12/01/20 19:26) seasonal allergies Allergy (Mild, Uncoded 12/01/20 19:26) Difficulty Breathing Home Medications: Albuterol 2.5 mg/3 ml Neb [Proventil 2.5 mg/3 ml Neb] 2.5 mg IH DAILY 10/13/16 [History] Mometasone/Formoterol [Dulera 100 Mcg-5 Mcg Inhaler] 13 gm IH Q4H PRN PRN 10/13/16 [History] buPROPion HCL [Wellbutrin Sr] 150 mg PO DAILY 10/13/16 [History] Lurasidone HCl [Latuda] 20 mg PO HS 03/10/17 [History] Pregabalin 50 mg [Lyrica 50MG] 50 mg PO DAILY 08/19/18 [History] Atorvastatin Calcium [Lipitor 20MG Tablet] 20 mg PO DAILY 06/01/19 [History] Tizanidine HCl 4 mg [Zanaflex 4 MG] 4 mg PO DAILY 06/01/19 [History] Hx Tetanus, Diphtheria Vaccination/Date Given: Yes Hx Influenza Vaccination/Date Given: Yes Hx Pneumococcal Vaccination/Date Given: No Immunizations Up to Date: Yes Travel Risk - International Travel Have you traveled outside of the country in past 3 weeks: No - Coronavirus Screening Are you exhibiting any of the following symptoms?: Yes Symptoms: Cough: New Onset, Loss of Taste or Smell Close contact with a COVID-19 positive Pt in past 14-21 Days: No - Vaccine Status Have you recieved a Covid-19 vaccination: Yes Self Rising Flour Mixer: Moderna - Vaccination Dates Date of 2cond Vaccination (if applicable): n/a Comment: pts card is at home - Review of Systems Constitutional: Fatigue Eyes: No Symptoms Ears, Nose, & Throat: Throat Swelling Respiratory: Cough, Wheezing Abdominal/Gastrointestinal: Nausea, Vomiting Genitourinary Symptoms: No Symptoms Musculoskeletal: Myalgias Skin: No Symptoms Neurological: Headache Psychological: No Symptoms Endocrine: No Symptoms Hematologic/Lymphatic: No Symptoms Immunological/Allergic: No Symptoms - Past Medical History Pertinent Past Medical History: Yes Neurological History: No Pertinent History ENT History: Other Cardiac History: High Cholesterol, Hypertension Respiratory History: Asthma, COPD Endocrine Medical History: No Pertinent History Musculoskeletal History: Arthritis, Fibromyalgia, Osteoarthritis GI Medical History: GERD History: Other Psycho-Social History: Bipolar, Depression, Other Female Reproductive Disorders: Other Other Medical History: PATIENT REPORTS DX'D WITH FIBRO 3 YEARS AGO. HX OF ARTHRITIS IN THE KNEES. HX OF P.T. FOR BACK, NECK (C7 FUSION), AND SHOULDER. NEUROSTIMULATOR IMPLANT FOR PAIN IN ANKLE. HX OF BIPOLAR. kidney stones - Past Surgical History Past Surgical History: Yes Neuro Surgical History: No Pertinent History Cardiac: No Pertinent History Respiratory: No Pertinent History Gastrointestinal: Cholecystectomy Genitourinary: No Pertinent History Musculoskeletal: Orthopedic Surgery Female Surgical History: No Pertinent History Other Surgical History: cyst removal x 2, C6-C7 fusion - Social History Smoking Status: Never smoker Exposure to second hand smoke: Yes Alcohol Use: None Drug Use: none Patient Lives Alone: No Significant Family History: no pertinent family hx - Female History Hx Last Menstrual Period: 11/25/21 Hx Now: No (N) - Nursing Vital Signs Nursing Vital Signs: Initial Vital Signs Temperature 97.4 F 11/28/21 23:33 Pulse Rate 75 11/28/21 23:33 Respiratory Rate 18 11/28/21 23:33 Blood Pressure 132/102 11/28/21 23:33 O2 Sat by Pulse Oximetry 98 11/28/21 23:33 Pain Scale Pain Intensity 2 - Physical Exam General Appearance: no apparent distress, alert Eye Exam: PERRL/EOMI Ears, Nose, Throat Exam: moist mucous membranes, pharyngeal erythema Neck Exam: normal inspection, non-tender, full range of motion Respiratory Exam: wheezing, No chest tenderness, No respiratory distress, No accessory muscle use Cardiovascular Exam: regular rate/rhythm, normal heart sounds Gastrointestinal/Abdomen Exam: soft, normal bowel sounds, No tenderness Back Exam: normal inspection, normal range of motion Extremity Exam: normal inspection, normal range of motion Neurologic Exam: alert, oriented x 3, 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, 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 Skin Exam: normal color SpO2 Interpretation: normal SpO2: 98 O2 Delivery: Room Air Ordered Tests: Active Orders 24 hr Category Date Time Status CHEST 1 VIEW (PORTABLE) Routine Exams 11/29/21 00:01 Taken Medication Summary Discontinued Medications Generic Name Dose Route Start Last Admin Trade Name Freq PRN Reason Stop Dose Admin Hydrocodone Bitart/Acetaminophen 15 ml 11/28/21 23:42 11/28/21 23:56 Hydrocodone/Acetaminophen 5 Ml Udcup PO 11/28/21 23:43 15 ml STAT STA Administration Hydrocodone Bitart/Acetaminophen Confirm 11/28/21 23:55 Hydrocodone/Acetaminophen 5 Ml Udcup Administered 11/28/21 23:56 Dose 15 ml .ROUTE .STK-MED ONE Albuterol/Ipratropium 3 ml 11/28/21 23:43 Ipratropium/Albuterol Sulfate 3 Ml Ampul.Neb IH 11/28/21 23:44 STAT ONE Lab/Rad Data: Laboratory Results 11/28/21 Range/Units 23:52 Influenza Type A Ag NEGATIVE (NEGATIVE) Influenza Type B Ag NEGATIVE (NEGATIVE) RSV (PCR) NEGATIVE (Negative) SARS-CoV-2 (PCR) NEGATIVE (NEGATIVE) - Progress Progress: improved Air Movement: good Progress Note: 11/29/21 00:53 She is given symptomatic treatment for cough along with breathing treatment and on reevaluation feeling much better. Chest x-ray showed questionable airspace disease, started on antibiotics. We will give a short course of steroids along with it. Discussed signs symptoms of worsening needing return to ER which she seems understanding. Blood Culture(s) Obtained: No Antibiotics given: Yes Counseled pt/family regarding: lab results, diagnosis, need for follow-up, rad results - Departure Departure Disposition: Home Clinical Impression: Bronchitis Condition: Stable Critical Care Time: No Referrals: ANDRES MASSEY [Primary Care Provider] - Follow up/PCP as directed (1-2 days for reevaluation) Instructions: Cough, Adult (DC) Additional Instructions: Use your inhaler regularly as recommended. Follow-up with primary care for reevaluation. Drink plenty of fluids. Return to ER for any worsening. Prescriptions: Prednisone 20 mg [Deltasone 20 mg] 60 mg PO DAILY 5 Days #15 tablet Doxycycline Hyclate 100 mg [Vibramycin 100 MG] 100 mg PO BID #14 tab
[2021-11-29 00:34] LABS: INFLUENZA A NEGATIVE (NEGATIVE); INFLUENZA B NEGATIVE (NEGATIVE); RESPIRATORY SYNCTIAL VIRUS NEGATIVE (Negative); SARS-CoV-2 Xpert Express NEGATIVE (NEGATIVE)
[2021-11-29] MEDS ORDERED: DUONEB 0.5-3 MG/3 ml Neb IH ONE (01:08)
[2021-11-29] MEDS: DUONEB 0.5-3 MG/3 ml Neb IH ONE (01:09)
[2021-11-29] MEDS ORDERED: DELTASONE 20 MG ONE (01:21)
[2021-11-29] MEDS ORDERED: Vibramycin 100 MG ONE (01:21)
[2021-11-29] MEDS: Vibramycin 100 MG PO ONE (01:22)
[2021-11-29] MEDS: DELTASONE 20 MG PO ONE (01:22)
[2021-11-29 01:36] VITALS: BP 127/86; PULSE 66; O2SAT 97
--- NOTE | 2021-11-29 08:50 | XRAY ---
Indication: Cough. Comparison: November 01, 2020. Portable chest remains clear. Heart not enlarged. Bony thorax intact again with epidural stimulator leads terminating T8-T9 level and inferior cervical fusion hardware. No new/acute findings.
== END 2021-11-29 01:36 | disposition home or self-care (01) ==
LOC: ED 23:19
DX: J40 Bronchitis, not specified as acute or chronic (principal); R05.1 Acute cough; M79.10 Myalgia, unspecified site; R53.83 Other fatigue; R43.8 Other disturbances of smell and taste; R51.9 Headache, unspecified; R09.81 Nasal congestion; E78.5 Hyperlipidemia, unspecified; I10 Essential (primary) hypertension; Z79.52 Long term (current) use of systemic steroids; Z79.899 Other long term (current) drug therapy
CPT/HCPCS: 0241U; 71045; 94640; 99284; A9270-GY

== ENCOUNTER 2022-04-03 01:29 | Emergency (ER) | payer MEDICARE ==
[2022-04-03] MEDS ORDERED: BABY ASPIRIN 81 MG CHEW PO ONE (02:00)
[2022-04-03] MEDS ORDERED: DUONEB 0.5-3 MG/3 ml Neb IH ONE ×2 (02:00→02:15)
--- NOTE | 2022-04-03 02:09 | ERPHSYRPT ---
- History of Present Illness Time Seen by Provider: 04/03/22 01:34 Historian: patient Exam Limitations: no limitations Physician History: 36-year-old female with a history of hypertension presented to the ER with chief complaint of sudden onset tightness across chest while she was driving almost an hour ago. Is continuous, without any significant aggravating or relieving factors. Denies any obvious difficulty breathing. No fever or chills reported but does have minimal nonproductive cough and congestion. Does report having history of chest pains in the past and had cardiac cath done which showed minimal plaque but no need for any stenting. Does report having history of DVT but not taking any blood thinners. Denies any fever or chills. Timing/Duration: hour(s) (1), constant, sudden Activities at Onset: other (Driving) Quality: tightness Location: substernal Chest Pain Radiation: no radiation Severity of Pain-Max: moderate Severity of Pain-Current: mild Modifying Factors: Improves With: nothing Associated Symptoms: denies symptoms Prior Chest Pain/Cardiac Workup: cardiac cath Nitro Today/Relief: no nitro taken today Aspirin Treatment Today: no aspirin today Allergies/Adverse Reactions: barley Allergy (Mild, Verified 04/03/22 01:47) wheat Allergy (Mild, Verified 04/03/22 01:47) corn Allergy (Verified 04/03/22 01:47) gluten Allergy (Verified 04/03/22 01:47) magnesium citrate Allergy (Verified 04/03/22 01:47) morphine Allergy (Verified 04/03/22 01:47) Rash venom-honey bee [bee venom (honey bee)] Allergy (Verified 04/03/22 01:47) seasonal allergies Allergy (Mild, Uncoded 04/03/22 01:47) Difficulty Breathing Home Medications: Albuterol 2.5 mg/3 ml Neb [Proventil 2.5 mg/3 ml Neb] 2.5 mg IH DAILY 10/13/16 [History] Mometasone/Formoterol [Dulera 100 Mcg-5 Mcg Inhaler] 13 gm IH Q4H PRN PRN 10/13/16 [History] buPROPion HCL [Wellbutrin Sr] 150 mg PO DAILY 10/13/16 [History] Lurasidone HCl [Latuda] 20 mg PO HS 03/10/17 [History] Pregabalin 50 mg [Lyrica 50MG] 50 mg PO DAILY 08/19/18 [History] Atorvastatin Calcium [Lipitor 20MG Tablet] 20 mg PO DAILY 06/01/19 [History] Tizanidine HCl 4 mg [Zanaflex 4 MG] 4 mg PO DAILY 06/01/19 [History] Hx Tetanus, Diphtheria Vaccination/Date Given: Yes Hx Influenza Vaccination/Date Given: Yes Hx Pneumococcal Vaccination/Date Given: No Travel Risk - Vaccine Status Have you recieved a Covid-19 vaccination: Yes Drafter Civil: Moderna - Vaccination Dates Date of 2cond Vaccination (if applicable): n/a Comment: pts card is at home - Review of Systems Constitutional: No Symptoms Eyes: No Symptoms Ears, Nose, & Throat: No Symptoms Respiratory: Cough Cardiac: Chest Pain Abdominal/Gastrointestinal: No Symptoms Genitourinary Symptoms: No Symptoms Musculoskeletal: No Symptoms Skin: No Symptoms Neurological: No Symptoms Psychological: Anxiety Hematologic/Lymphatic: No Symptoms Immunological/Allergic: No Symptoms - Past Medical History Pertinent Past Medical History: Yes Neurological History: No Pertinent History ENT History: Other Cardiac History: High Cholesterol, Hypertension Respiratory History: Asthma, COPD Endocrine Medical History: No Pertinent History Musculoskeletal History: Arthritis, Fibromyalgia, Osteoarthritis GI Medical History: GERD History: Other Psycho-Social History: Bipolar, Depression, Other Female Reproductive Disorders: Other Other Medical History: PATIENT REPORTS DX'D WITH FIBRO 3 YEARS AGO. HX OF ARTH RITIS IN THE KNEES. HX OF P.T. FOR BACK, NECK (C7 FUSION), AND SHOULDER. NEUROSTIMULATOR IMPLANT FOR PAIN IN ANKLE. HX OF BIPOLAR. kidney stones - Past Surgical History Past Surgical History: Yes Neuro Surgical History: No Pertinent History Cardiac: No Pertinent History Respiratory: No Pertinent History Gastrointestinal: Cholecystectomy Genitourinary: No Pertinent History Musculoskeletal: Orthopedic Surgery Female Surgical History: No Pertinent History Other Surgical History: cyst removal x 2, C6-C7 fusion - Social History Smoking Status: Never smoker Exposure to second hand smoke: Yes Alcohol Use: None Drug Use: none Patient Lives Alone: No Significant Family History: no pertinent family hx - Female History Hx Now: (UNKN) - Nursing Vital Signs Nursing Vital Signs: Initial Vital Signs Temperature 98.3 F 04/03/22 01:48 Pulse Rate 83 04/03/22 01:48 Respiratory Rate 18 04/03/22 01:48 Blood Pressure 136/85 09/25/22 01:48 O2 Sat by Pulse Oximetry 97 04/03/22 01:48 Pain Scale Pain Intensity 0 - Physical Exam General Appearance: no apparent distress, alert, anxiety Eye Exam: PERRL/EOMI Ears, Nose, Throat Exam: normal ENT inspection, TMs normal, pharynx normal, moist mucous membranes Neck Exam: normal inspection, non-tender, supple, full range of motion Respiratory Exam: normal breath sounds, lungs clear Cardiovascular Exam: regular rate/rhythm, normal heart sounds Gastrointestinal/Abdomen Exam: soft, normal bowel sounds, No tenderness Back Exam: normal inspection, normal range of motion Extremity Exam: normal inspection, normal range of motion Neurologic Exam: alert, oriented x 3, cooperative, 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 tested Skin Exam: normal color SpO2 Interpretation: normal SpO2: 96 O2 Delivery: Room Air - Course EKG Interpreted by Me: RATE (74), Sinus Rhythm, NORMAL AXIS, NORMAL INTERVALS, Other (T wave inversion inferiorly) Ordered Tests: Active Orders 24 hr Category Date Time Status Technical Specialist STAT Care 04/03/22 02:00 Active EKG-ER Only STAT Care 04/03/22 02:00 Active IV Insertion STAT Care 04/03/22 02:00 Active CHEST 1 VIEW (PORTABLE) Stat Exams 04/03/22 02:00 Taken CBC W DIFF Stat Lab 04/03/22 02:59 Completed CMP Stat Lab 04/03/22 02:59 Completed D-DIMER QUANTITATIVE Stat Lab 04/03/22 02:59 Completed HCG,QUALITATIVE URINE Stat Lab 04/03/22 03:04 Completed NT PRO BNP Stat Lab 04/03/22 02:59 Completed TROPONIN Q4H Lab 04/03/22 02:59 Completed TROPONIN Q4H Lab 04/03/22 04:48 Received TROPONIN Q4H Lab 04/03/22 10:00 Ordered UA W/RFX CULTURE Stat Lab 04/03/22 04:09 Completed Respiratory Therapy Assessment DAILY RT 04/03/22 02:36 Active Medication Summary Discontinued Medications Generic Name Dose Route Start Last Admin Trade Name Freq PRN Reason Stop Dose Admin Albuterol/Ipratropium 3 ml 04/03/22 02:00 04/03/22 02:22 Ipratropium/Albuterol Sulfate 3 Ml Ampul.Neb IH 04/03/22 02:01 3 ml STAT ONE Administration Albuterol/Ipratropium Confirm 04/03/22 02:15 Ipratropium/Albuterol Sulfate 3 Ml Ampul.Neb Administered 04/03/22 02:16 Dose 3 ml IH .STK-MED ONE Aspirin 324 mg 04/03/22 02:00 04/03/22 02:15 Aspirin 81 Mg Tab.Chew PO 04/03/22 02:01 324 mg STAT ONE Administration Lab/Rad Data: Laboratory Result Diagrams 04/03/22 02:59 04/03/22 02:59 Laboratory Results 04/03/22 04/03/22 04/03/22 Range/Units 04:09 03:04 02:59 WBC (4.0-10.5) x10^3/uL RBC (4.1-5.4) x10^6/uL Hgb (12.0-16.0) g/dL Hct (35-47) % MCV (78-100) fL MCH (26-32) pg MCHC (32-36) g/dL RDW (11.5-14.0) % Plt Count (150-450) x10^3/uL MPV (7.5-11.0) fL Gran % (36.0-66.0) % Immature Gran % (Auto) (0.00-0.4) % Nucleat RBC Rel Count (0.00-0.1) % Eos # (Auto) (0-0.5) x10^3/uL Immature Gran # (Auto) (0.00-0.03) x10^3u/L Absolute Lymphs (auto) (1.0-4.6) x10^3/uL Absolute Monos (auto) (0.0-1.3) x10^3/uL Absolute Nucleated RBC (0.00-0.01) x10^3u/L Lymphocytes % (24.0-44.0) % Monocytes % (0.0-12.0) % Eosinophils % (0.00-5.0) % Basophils % (0.0-0.4) % Absolute Granulocytes (1.4-6.9) x10^3/uL Basophils # (0-0.4) x10^3/uL D-Dimer (0.0-0.50) mg/L Sodium (137-145) mmol/L Potassium (3.5-5.1) mmol/L Chloride (98-107) mmol/L Carbon Dioxide (22-30) mmol/L Anion Gap (5-15) MEQ/L BUN (7-17) mg/dL Creatinine (0.52-1.04) mg/dL Estimated GFR ML/MIN Glucose (74-106) mg/dL Calcium (8.4-10.2) mg/dL Total Bilirubin (0.2-1.3) mg/dL AST (14-36) U/L ALT (0-35) U/L Alkaline Phosphatase (38-126) U/L Troponin I < 0.012 (0.000-0.034) ng/mL NT-Pro-B Natriuret Pep (0-450) pg/mL Serum Total Protein (6.3-8.2) g/dL Albumin (3.5-5.0) g/dL Urinalys Dipstick Clnc MAIN LAB Urine Color YELLOW (YELLOW) Urine Appearance CLEAR (CLEAR) Urine pH 6.0 (5-6) Ur Specific [place] 1.025 (1.005-1.025) POC Urine Protein Conf NEGATIVE (Negative) Urine Ketones NEGATIVE (NEGATIVE) Urine Nitrite NEGATIVE (NEGATIVE) Urine Bilirubin NEGATIVE (NEGATIVE) Urine Urobilinogen 0.2 (0-1) mg/dL Urine Leukocytes NEGATIVE (NEGATIVE) Urine WBC (Auto) 3-5 (0-5) /HPF Urine RBC (Auto) 0-2 (0-2) /HPF U Epithel Cells (Auto) NONE (FEW) /HPF Urine Bacteria (Auto) NONE (NEGATIVE) /HPF Urine RBC MODERATE (0-5) Amandeep/ul Urine Mucus (Auto) SLIGHT (NEGATIVE) /HPF Ur Culture Indicated? NO Urine Glucose NEGATIVE (NEGATIVE) mg/dL Urine HCG, Qual NEGATIVE (Negative) 04/03/22 04/03/22 04/03/22 Range/Units 02:59 02:59 02:59 WBC 8.0 (4.0-10.5) x10^3/uL RBC 4.05 L (4.1-5.4) x10^6/uL Hgb 13.0 (12.0-16.0) g/dL Hct 38.9 (35-47) % MCV 96.0 (78-100) fL MCH 32.1 H (26-32) pg MCHC 33.4 (32-36) g/dL RDW 12.6 (11.5-14.0) % Plt Count 230 (150-450) x10^3/uL MPV 10.3 (7.5-11.0) fL Gran % 44.5 (36.0-66.0) % Immature Gran % (Auto) 0.2 (0.00-0.4) % Nucleat RBC Rel Count 0.0 (0.00-0.1) % Eos # (Auto) 0.28 (0-0.5) x10^3/uL Immature Gran # (Auto) 0.02 (0.00-0.03) x10^3u/L Absolute Lymphs (auto) 3.72 (1.0-4.6) x10^3/uL Absolute Monos (auto) 0.43 (0.0-1.3) x10^3/uL Absolute Nucleated RBC 0.00 (0.00-0.01) x10^3u/L Lymphocytes % 46.3 H (24.0-44.0) % Monocytes % 5.3 (0.0-12.0) % Eosinophils % 3.5 (0.00-5.0) % Basophils % 0.2 (0.0-0.4) % Absolute Granulocytes 3.57 (1.4-6.9) x10^3/uL Basophils # 0.02 (0-0.4) x10^3/uL D-Dimer 0.50 (0.0-0.50) mg/L Sodium 138 (137-145) mmol/L Potassium 3.3 L (3.5-5.1) mmol/L Chloride 106 (98-107) mmol/L Carbon Dioxide 24 (22-30) mmol/L Anion Gap 11.9 (5-15) MEQ/L BUN 10 (7-17) mg/dL Creatinine 0.51 L (0.52-1.04) mg/dL Estimated GFR > 60.0 ML/MIN Glucose 99 (74-106) mg/dL Calcium 9.2 (8.4-10.2) mg/dL Total Bilirubin 0.50 (0.2-1.3) mg/dL AST 24 (14-36) U/L ALT 33 (0-35) U/L Alkaline Phosphatase 71 (38-126) U/L Troponin I (0.000-0.034) ng/mL NT-Pro-B Natriuret Pep 26.8 (0-450) pg/mL Serum Total Protein 8.0 (6.3-8.2) g/dL Albumin 4.4 (3.5-5.0) g/dL Urinalys Dipstick Clnc Urine Color (YELLOW) Urine Appearance (CLEAR) Urine pH (5-6) Ur Specific [place] (1.005-1.025) POC Urine Protein Conf (Negative) Urine Ketones (NEGATIVE) Urine Nitrite (NEGATIVE) Urine Bilirubin (NEGATIVE) Urine Urobilinogen (0-1) mg/dL Urine Leukocytes (NEGATIVE) Urine WBC (Auto) (0-5) /HPF Urine RBC (Auto) (0-2) /HPF U Epithel Cells (Auto) (FEW) /HPF Urine Bacteria (Auto) (NEGATIVE) /HPF Urine RBC (0-5) Amandeep/ul Urine Mucus (Auto) (NEGATIVE) /HPF Ur Culture Indicated? Urine Glucose (NEGATIVE) mg/dL Urine HCG, Qual (Negative) - Progress Progress: improved Air Movement: good Progress Note: 04/03/22 she is given aspirin and breathing treatment, on reevaluation feeling better. She has negative troponins x2, negative D-dimers, chest x-ray negative for any acute cardiopulmonary findings reviewed by me, official report is pending. Part of her symptoms could be secondary to anxiety. Recommended outpatient follow-up with primary care and cardiology for reevaluation. Discussed signs symptoms of worsening needing return to ER which she seems understanding. Blood Culture(s) Obtained: No Antibiotics given: No Counseled pt/family regarding: lab results, diagnosis, need for follow-up, rad results - Departure Departure Disposition: Home Clinical Impression: Atypical chest pain, Anxiety Condition: Stable Critical Care Time: No Referrals: ANDRES MASSEY [Primary Care Provider] - Follow up/PCP as directed LYNNE YANES MD [ACTIVE STAFF] - Follow up/PCP as directed (1-2 days for reevaluation) SERVANDO TEE [CONSULTING PHYSICIAN] - Follow up/PCP as directed (1-2 days for reevaluation) Instructions: Chest Pain (DC), Anxiety, Adult (DC) Additional Instructions: Continue with your current medication. Follow-up with primary care and cardiology for reevaluation. Return to ER for worsening chest tightness, pain, palpitations, difficulty breathing etc.
[2022-04-03 03:02] LABS: Absolute Neutrophil Ct (ANC) 3.57 x10^3/uL (1.4-6.9); Basophil (Absolute #) 0.02 x10^3/uL (0-0.4); Eosinophil % 3.5 % (0.00-5.0); Eosinophil (Absolute #) 0.28 x10^3/uL (0-0.5); Hematocrit 38.9 % (35-47); Lymphocyte (Absolute #) 3.72 x10^3/uL (1.0-4.6); Lymphocytes % 46.3 % (24.0-44.0); Mean Corpuscular Hemoglobin 32.1 pg (26-32); Mean Corpuscular Hgb Concent. 33.4 g/dL (32-36); Mean Platelet Volume 10.3 fL (7.5-11.0); Monocyte (Absolute #) 0.43 x10^3/uL (0.0-1.3); Monocytes % 5.3 % (0.0-12.0); Neutrophil % 44.5 % (36.0-66.0); Platelet Count 230 x10^3/uL (150-450); Red Blood Count 4.05 x10^6/uL (4.1-5.4); Red Cell Distribution Width 12.6 % (11.5-14.0)
[2022-04-03 03:17] LABS: ALBUMIN 4.4 g/dL (3.5-5.0); ALKALINE PHOSPHATASE 71 U/L (38-126); ANION GAP 11.9 MEQ/L (5-15); BLOOD UREA NITROGEN 10 mg/dL (7-17); CHLORIDE 106 mmol/L (98-107); Calcium 9.2 mg/dL (8.4-10.2); Carbon Dioxide 24 mmol/L (22-30); Creatinine 1 0.51 mg/dL (0.52-1.04); EST GLOMERULAR FILTRATION RATE > 60.0 ML/MIN; Glucose 99 mg/dL (74-106); NT PRO BNP 26.8 pg/mL (0-450); Potassium 3.3 mmol/L (3.5-5.1); SGOT/AST 24 U/L (14-36); SGPT/ALT 33 U/L (0-35); SODIUM 138 mmol/L (137-145)
[2022-04-03 04:32] LABS: Appearance CLEAR (CLEAR); Bilirubin NEGATIVE (NEGATIVE); Glucose NEGATIVE (NEGATIVE); Ketones NEGATIVE (NEGATIVE); Mucus SLIGHT /HPF (NEGATIVE); Protein,Urine Dip NEGATIVE (Negative); RBC 0-2 /HPF (0-2); RBC MODERATE Ery/ul (0-5); Specific Gravity 1.025 (1.005-1.025)
[2022-04-03 04:33] LABS: Dipstick done @ ? MAIN LAB; Nitrite NEGATIVE (NEGATIVE); Urine Cultured Indicated? NO; Urobilinogen 0.2 mg/dL (0-1)
[2022-04-03 05:09] VITALS: BP 124/77; PULSE 70; O2SAT 97
--- NOTE | 2022-04-03 06:37 | XRAY ---
Indication: Chest pressure and pain. Comparison: November 29, 2021 Portable chest again demonstrates normal heart and lungs. Bony thorax intact again with inferior cervical fusion hardware and epidural stimulator lead. No new/acute findings.
== END 2022-04-03 05:27 | disposition home or self-care (01) ==
LOC: ED 01:29
DX: R07.89 Other chest pain (principal); F41.9 Anxiety disorder, unspecified; R05.9 Cough, unspecified; R09.81 Nasal congestion; E78.5 Hyperlipidemia, unspecified; I10 Essential (primary) hypertension; J44.9 Chronic obstructive pulmonary disease, unspecified; Z79.899 Other long term (current) drug therapy
CPT/HCPCS: 36000; 36415; 71045; 80053; 81015; 81025; 83880; 84484; 85025; 85379; 93005; 93041; 94640; 99284; A9270-GY

== ENCOUNTER 2022-04-26 03:34 | Emergency (ER) | payer MEDICARE ==
[2022-04-26] MEDS ORDERED: TORAdol 30 mg Injection IV ONE (03:59)
[2022-04-26] MEDS ORDERED: TORAdol 30 mg Injection ONE (04:01)
--- NOTE | 2022-04-26 04:06 | ERPHSYRPT ---
- History of Present Illness Historian: patient Exam Limitations: no limitations Patient Subjective Stated Complaint: pt states she has had stomach pain all day yesterday after being bloated fro three days and having trouble having BM. pt states that she has been nauseated and vomited once Triage Nursing Assessment: pt is alert and oriented, laying in bed gaurding abdomen, states that pain is felt in midabdominal region. bowel sounds present in all 4 quadrants Physician History: 36 yo wf w epigastric pain x 2 days. Pain is 8/10 on scale and described as aching/stabbing. It does not radiate and nothing makes it better or worse. She has had nausea w minimal vomiting. Pt has chronic diarrhea due to IBS. She states that she also has chronic dysuria wo hematuria. Melena/hematochezia/hematemeis are all denied. Timing/Duration: other (2 days) Quality: aching, sharpness Abdominal Pain Onset Location: epigastric Pain Radiation: no radiation Severity of Pain-Max: severe Severity of Pain-Current: severe Modifying Factors: Improves With: nothing Associated Symptoms: diarrhea, loss of appetite, nausea, vomiting, No back, No chest pain, No diaphoresis, No fever/chills, No fatigue, No headache, No heartburn, No neck pain, No rash, No shortness of breath, No syncope, No weakness Previous symptoms: same symptoms as today Allergies/Adverse Reactions: barley Allergy (Mild, Verified 04/03/22 01:47) wheat Allergy (Mild, Verified 04/03/22 01:47) corn Allergy (Verified 04/03/22 01:47) gluten Allergy (Verified 04/03/22 01:47) magnesium citrate Allergy (Verified 04/03/22 01:47) morphine Allergy (Verified 04/03/22 01:47) Rash venom-honey bee [bee venom (honey bee)] Allergy (Verified 04/03/22 01:47) seasonal allergies Allergy (Mild, Uncoded 04/03/22 01:47) Difficulty Breathing Home Medications: Albuterol 2.5 mg/3 ml Neb [Proventil 2.5 mg/3 ml Neb] 2.5 mg IH DAILY 10/13/16 [History] Mometasone/Formoterol [Dulera 100 Mcg-5 Mcg Inhaler] 13 gm IH Q4H PRN PRN 10/13/16 [History] buPROPion HCL [Wellbutrin Sr] 150 mg PO DAILY 10/13/16 [History] Lurasidone HCl [Latuda] 20 mg PO HS 03/10/17 [History] Pregabalin 50 mg [Lyrica 50MG] 50 mg PO DAILY 08/19/18 [History] Atorvastatin Calcium [Lipitor 20MG Tablet] 20 mg PO DAILY 06/01/19 [History] Tizanidine HCl 4 mg [Zanaflex 4 MG] 4 mg PO DAILY 06/01/19 [History] Hx Tetanus, Diphtheria Vaccination/Date Given: Yes Hx Influenza Vaccination/Date Given: Yes Hx Pneumococcal Vaccination/Date Given: No Travel Risk - International Travel Have you traveled outside of the country in past 3 weeks: No - Coronavirus Screening Close contact with a COVID-19 positive Pt in past 14-21 Days: No - Vaccine Status Have you recieved a Covid-19 vaccination: Yes 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 - Vaccination Dates Date of 2cond Vaccination (if applicable): unknown - Review of Systems Constitutional: No Symptoms Eyes: No Symptoms Ears, Nose, & Throat: No Symptoms Respiratory: No Symptoms Cardiac: No Symptoms Abdominal/Gastrointestinal: No Symptoms, Abdominal Pain, Nausea, Vomiting, Diarrhea Genitourinary Symptoms: No Symptoms Musculoskeletal: No Symptoms Skin: No Symptoms Neurological: No Symptoms Psychological: No Symptoms Endocrine: No Symptoms Hematologic/Lymphatic: No Symptoms Immunological/Allergic: No Symptoms - Past Medical History Pertinent Past Medical History: Yes Neurological History: No Pertinent History ENT History: Other Cardiac History: High Cholesterol, Hypertension Respiratory History: Asthma, COPD Endocrine Medical History: No Pertinent History Musculoskeletal History: Arthritis, Fibromyalgia, Osteoarthritis GI Medical History: GERD History: Other Psycho-Social History: Bipolar, Depression, Other Female Reproductive Disorders: Other Other Medical History: PATIENT REPORTS DX'D WITH FIBRO 3 YEARS AGO. HX OF ARTH RITIS IN THE KNEES. HX OF P.T. FOR BACK, NECK (C7 FUSION), AND SHOULDER. NEUROSTIMULATOR IMPLANT FOR PAIN IN ANKLE. HX OF BIPOLAR. kidney stones - Past Surgical History Past Surgical History: Yes Neuro Surgical History: No Pertinent History Cardiac: No Pertinent History Respiratory: No Pertinent History Gastrointestinal: Cholecystectomy Genitourinary: No Pertinent History Musculoskeletal: Orthopedic Surgery Female Surgical History: No Pertinent History Other Surgical History: cyst removal x 2, C6-C7 fusion - Social History Smoking Status: Never smoker Exposure to second hand smoke: Yes Alcohol Use: None Drug Use: none Patient Lives Alone: No Significant Family History: no pertinent family hx - Female History Hx Last Menstrual Period: 04/09/22 Hx Now: No - Nursing Vital Signs Nursing Vital Signs: Initial Vital Signs Temperature 98.3 F 04/26/22 03:35 Pain Scale Pain Intensity 4 - Physical Exam General Appearance: no apparent distress Eye Exam: PERRL/EOMI, eyes nml inspection Ears, Nose, Throat Exam: normal ENT inspection, TMs normal, pharynx normal, moist mucous membranes Neck Exam: normal inspection, non-tender, supple, full range of motion, No meningismus, No mass, No Brudzinski, No Kernig's Respiratory Exam: normal breath sounds, lungs clear, airway intact Cardiovascular Exam: regular rate/rhythm, normal heart sounds, normal peripheral pulses, capillary refill <2 sec, No murmur Gastrointestinal/Abdomen Exam: soft, normal bowel sounds, tenderness (Moderate epigastric TTP w guarding/No rebound), No distention Back Exam: normal inspection, normal range of motion, No CVA tenderness, No vertebral tenderness Extremity Exam: normal inspection, normal range of motion Neurologic Exam: alert, oriented x 3, cooperative, 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 processing manager II-XII nml as tested, normal mood/affect, nml cerebellar function, nml station & gait, sensation nml, No motor deficits, No sensory deficit Skin Exam: normal color, warm, dry, rash (marked acne rosacea on face) Lymphatic Exam: No adenopathy - Course Nursing assessment & vital signs reviewed: Yes - CT Exams Abdomen/Pelvis CT Interpretation: Tele-radiologist Report (NAD) Ordered Tests: Active Orders 24 hr Category Date Time Status ABDOMEN AND PELVIS W/0 CONTRAS [CT] Stat Exams 04/26/22 04:40 Taken AMYLASE Stat Lab 04/26/22 04:06 Completed CBC W DIFF Stat Lab 04/26/22 04:06 Completed CMP Stat Lab 04/26/22 04:06 Completed HCG QUALITATIVE,SERUM Stat Lab 04/26/22 04:06 Completed LIPASE Stat Lab 04/26/22 04:06 Completed TROPONIN Q4H Lab 04/26/22 04:06 Completed TROPONIN Q4H Lab 04/26/22 08:00 Ordered TROPONIN Q4H Lab 04/26/22 12:00 Ordered UA W/RFX CULTURE Stat Lab 04/26/22 05:11 Completed Urine Triage Profile Stat Lab 04/26/22 05:11 Received Medication Summary Discontinued Medications Generic Name Dose Route Start Last Admin Trade Name Anastasiia PRN Reason Stop Dose Admin Sodium Chloride 1,000 mls @ 999 mls/hr 04/26/22 04:09 04/26/22 04:12 Sodium Chloride 0.9% 1000 Ml IV 04/26/22 05:09 999 mls/hr .Q1H1M STA Administration Sodium Chloride Confirm 04/26/22 04:10 Sodium Chloride 0.9% 1000 Ml Administered 04/26/22 04:11 Dose 1,000 mls @ ud .ROUTE .STK-MED ONE Ketorolac Tromethamine 15 mg 04/26/22 03:59 04/26/22 04:02 Ketorolac Tromethamine 30 Mg/Ml Inj IV 04/26/22 04:00 15 mg STAT ONE Administration Ketorolac Tromethamine Confirm 04/26/22 04:01 Ketorolac Tromethamine 30 Mg/Ml Inj Administered 04/26/22 04:02 Dose 30 mg .ROUTE .STK-MED ONE Lab/Rad Data: Laboratory Result Diagrams 04/26/22 04:06 04/26/22 04:06 Laboratory Results 04/26/22 04/26/22 04/26/22 Range/Units 05:11 04:06 04:06 WBC (4.0-10.5) x10^3/uL RBC (4.1-5.4) x10^6/uL Hgb (12.0-16.0) g/dL Hct (35-47) % MCV (78-100) fL MCH (26-32) pg MCHC (32-36) g/dL RDW (11.5-14.0) % Plt Count (150-450) x10^3/uL MPV (7.5-11.0) fL Gran % (36.0-66.0) % Immature Gran % (Auto) (0.00-0.4) % Nucleat RBC Rel Count (0.00-0.1) % Eos # (Auto) (0-0.5) x10^3/uL Immature Gran # (Auto) (0.00-0.03) x10^3u/L Absolute Lymphs (auto) (1.0-4.6) x10^3/uL Absolute Monos (auto) (0.0-1.3) x10^3/uL Absolute Nucleated RBC (0.00-0.01) x10^3u/L Lymphocytes % (24.0-44.0) % Monocytes % (0.0-12.0) % Eosinophils % (0.00-5.0) % Basophils % (0.0-0.4) % Absolute Granulocytes (1.4-6.9) x10^3/uL Basophils # (0-0.4) x10^3/uL Sodium (137-145) mmol/L Potassium (3.5-5.1) mmol/L Chloride (98-107) mmol/L Carbon Dioxide (22-30) mmol/L Anion Gap (5-15) MEQ/L BUN (7-17) mg/dL Creatinine (0.52-1.04) mg/dL Estimated GFR ML/MIN Glucose (74-106) mg/dL Calcium (8.4-10.2) mg/dL Total Bilirubin (0.2-1.3) mg/dL AST (14-36) U/L ALT (0-35) U/L Alkaline Phosphatase (38-126) U/L Troponin I < 0.012 (0.000-0.034) ng/mL Serum Total Protein (6.3-8.2) g/dL Albumin (3.5-5.0) g/dL Amylase (30-110) U/L Lipase (23-300) U/L Serum , Qual NEGATIVE (Negative) Urinalys Dipstick Clnc MAIN LAB Urine Color YELLOW (YELLOW) Urine Appearance SLIGHTLY (CLEAR) Urine pH 7.0 (5-6) Ur Specific [place] 1.025 (1.005-1.025) POC Urine Protein Conf NEGATIVE (Negative) Urine Ketones NEGATIVE (NEGATIVE) Urine Nitrite NEGATIVE (NEGATIVE) Urine Bilirubin NEGATIVE (NEGATIVE) Urine Urobilinogen 0.2 (0-1) mg/dL Urine Leukocytes NEGATIVE (NEGATIVE) Urine WBC (Auto) 0-2 (0-5) /HPF Urine RBC (Auto) 0-2 (0-2) /HPF U Epithel Cells (Auto) RARE (FEW) /HPF Urine Bacteria (Auto) NONE (NEGATIVE) /HPF Urine RBC TRACE-LYSED (0-5) Amandeep/ul Amorphous Crystals FEW (NEGATIVE) /HPF Ur Culture Indicated? NO Urine Glucose NEGATIVE (NEGATIVE) mg/dL 04/26/22 04/26/22 Range/Units 04:06 04:06 WBC 9.7 (4.0-10.5) x10^3/uL RBC 4.32 (4.1-5.4) x10^6/uL Hgb 13.6 (12.0-16.0) g/dL Hct 41.5 (35-47) % MCV 96.1 (78-100) fL MCH 31.5 (26-32) pg MCHC 32.8 (32-36) g/dL RDW 12.5 (11.5-14.0) % Plt Count 291 (150-450) x10^3/uL MPV 10.5 (7.5-11.0) fL Gran % 59.7 (36.0-66.0) % Immature Gran % (Auto) 0.4 (0.00-0.4) % Nucleat RBC Rel Count 0.0 (0.00-0.1) % Eos # (Auto) 0.32 (0-0.5) x10^3/uL Immature Gran # (Auto) 0.04 H (0.00-0.03) x10^3u/L Absolute Lymphs (auto) 3.02 (1.0-4.6) x10^3/uL Absolute Monos (auto) 0.50 (0.0-1.3) x10^3/uL Absolute Nucleated RBC 0.00 (0.00-0.01) x10^3u/L Lymphocytes % 31.2 (24.0-44.0) % Monocytes % 5.2 (0.0-12.0) % Eosinophils % 3.3 (0.00-5.0) % Basophils % 0.2 (0.0-0.4) % Absolute Granulocytes 5.78 (1.4-6.9) x10^3/uL Basophils # 0.02 (0-0.4) x10^3/uL Sodium 139 (137-145) mmol/L Potassium 3.6 (3.5-5.1) mmol/L Chloride 104 (98-107) mmol/L Carbon Dioxide 29 (22-30) mmol/L Anion Gap 10.6 (5-15) MEQ/L BUN 14 (7-17) mg/dL Creatinine 0.69 (0.52-1.04) mg/dL Estimated GFR > 60.0 ML/MIN Glucose 99 (74-106) mg/dL Calcium 9.4 (8.4-10.2) mg/dL Total Bilirubin 0.30 (0.2-1.3) mg/dL AST 27 (14-36) U/L ALT 40 H (0-35) U/L Alkaline Phosphatase 70 (38-126) U/L Troponin I (0.000-0.034) ng/mL Serum Total Protein 8.1 (6.3-8.2) g/dL Albumin 4.5 (3.5-5.0) g/dL Amylase 75 (30-110) U/L Lipase 208 (23-300) U/L Serum , Qual (Negative) Urinalys Dipstick Clnc Urine Color (YELLOW) Urine Appearance (CLEAR) Urine pH (5-6) Ur Specific [place] (1.005-1.025) POC Urine Protein Conf (Negative) Urine Ketones (NEGATIVE) Urine Nitrite (NEGATIVE) Urine Bilirubin (NEGATIVE) Urine Urobilinogen (0-1) mg/dL Urine Leukocytes (NEGATIVE) Urine WBC (Auto) (0-5) /HPF Urine RBC (Auto) (0-2) /HPF U Epithel Cells (Auto) (FEW) /HPF Urine Bacteria (Auto) (NEGATIVE) /HPF Urine RBC (0-5) Amandeep/ul Amorphous Crystals (NEGATIVE) /HPF Ur Culture Indicated? Urine Glucose (NEGATIVE) mg/dL - Progress Progress: improved Progress Note: 04/26/22 05:40 1L NS bolus 15mg IV Toradol w improvement in pain Counseled pt/family regarding: lab results, diagnosis, need for follow-up, rad results - Departure Departure Disposition: Home Clinical Impression: Abdominal pain Condition: Stable Critical Care Time: No Referrals: ANDRES MASSEY [Primary Care Provider] - Follow up/PCP as directed Instructions: Severe Abdominal Pain Additional Instructions: Follow up with your family MD in 1-2 days Return to ER for increasing pain or temperature greater than 100.5
[2022-04-26] MEDS ORDERED: Sodium Chloride 0.9% 1000 ML 1,000 ML IV STA (04:09)
[2022-04-26] MEDS ORDERED: Sodium Chloride 0.9% 1000 ML 1,000 ML ONE (04:10)
[2022-04-26 04:19] LABS: ALBUMIN 4.5 g/dL (3.5-5.0); ALKALINE PHOSPHATASE 70 U/L (38-126); AMYLASE 75 U/L (30-110); ANION GAP 10.6 MEQ/L (5-15); BLOOD UREA NITROGEN 14 mg/dL (7-17); CHLORIDE 104 mmol/L (98-107); Calcium 9.4 mg/dL (8.4-10.2); Carbon Dioxide 29 mmol/L (22-30); Creatinine 1 0.69 mg/dL (0.52-1.04); EST GLOMERULAR FILTRATION RATE > 60.0 ML/MIN; Glucose 99 mg/dL (74-106); LIPASE 208 U/L (23-300); Potassium 3.6 mmol/L (3.5-5.1); SGOT/AST 27 U/L (14-36); SGPT/ALT 40 U/L (0-35); SODIUM 139 mmol/L (137-145); Total Protein 8.1 g/dL (6.3-8.2)
[2022-04-26 04:36] LABS: Absolute Neutrophil Ct (ANC) 5.78 x10^3/uL (1.4-6.9); Basophil (Absolute #) 0.02 x10^3/uL (0-0.4); Eosinophil % 3.3 % (0.00-5.0); Eosinophil (Absolute #) 0.32 x10^3/uL (0-0.5); Hematocrit 41.5 % (35-47); Hemoglobin 13.6 g/dL (12.0-16.0); Lymphocyte (Absolute #) 3.02 x10^3/uL (1.0-4.6); Lymphocytes % 31.2 % (24.0-44.0); Mean Cell Volume 96.1 fL (78-100); Mean Corpuscular Hemoglobin 31.5 pg (26-32); Mean Corpuscular Hgb Concent. 32.8 g/dL (32-36); Mean Platelet Volume 10.5 fL (7.5-11.0); Monocytes % 5.2 % (0.0-12.0); Neutrophil % 59.7 % (36.0-66.0); Platelet Count 291 x10^3/uL (150-450); Red Blood Count 4.32 x10^6/uL (4.1-5.4); Red Cell Distribution Width 12.5 % (11.5-14.0); White Blood Count 9.7 x10^3/uL (4.0-10.5)
[2022-04-26 05:18] VITALS: BP 116/78; PULSE 76; O2SAT 97
[2022-04-26 05:20] LABS: Appearance SLIGHTLY (CLEAR); Bilirubin NEGATIVE (NEGATIVE); Glucose NEGATIVE (NEGATIVE); Ketones NEGATIVE (NEGATIVE); Specific Gravity 1.025 (1.005-1.025)
[2022-04-26 05:21] LABS: Dipstick done @ ? MAIN LAB; Nitrite NEGATIVE (NEGATIVE); Protein,Urine Dip NEGATIVE (Negative); RBC TRACE-LYSED Ery/ul (0-5); Urobilinogen 0.2 mg/dL (0-1)
[2022-04-26 05:22] LABS: Amourphous Crystal FEW /HPF (NEGATIVE); Epithelial Cells RARE /HPF (FEW); RBC 0-2 /HPF (0-2); Urine Cultured Indicated? NO; WBC 0-2 /HPF (0-5)
[2022-04-26 05:32] LABS: Barbiturate,Urine NEGATIVE (NEGATIVE); Benzodiazepine,Urine NEGATIVE (NEGATIVE); Cocaine,Urine NEGATIVE (NEGATIVE); Methadone,Urine NEGATIVE (NEGATIVE); Opiate,Urine NEGATIVE (NEGATIVE)
[2022-04-26 05:35] LABS: Amphetamine,Urine NEGATIVE (NEGATIVE); THC,Urine NEGATIVE (NEGATIVE)
[2022-04-26 05:41] LABS: PCP,Urine NEGATIVE (NEGATIVE)
--- NOTE | 2022-04-26 08:48 | XRAY ---
Indication: Abdomen pain. Multiple contiguous axial images obtained through the abdomen and pelvis without contrast. Comparison: September 09, 2019 Lung bases demonstrate stable right base calcified granuloma. No infiltrate or effusion. Heart not enlarged. Stomach distended with food/fluid. Noncontrasted stomach and bowel loops appear nonobstructed again with normal appendix. Left lower renal calyx again demonstrates nonobstructing micro-calculi. Again previous cholecystectomy. No free fluid/air. Remaining liver, pancreas, spleen, adrenal glands, kidneys, ureters, bladder, uterus, and aorta are unremarkable for noncontrast exam. Osseous structures intact with minimal/mild degenerative changes throughout the spine. New left lower back epidural stimulator device and leads. Impression: 1. Again nonobstructing left renal micro-calculi and right lung base calcified granuloma. 2. Remaining CT abdomen/pelvis without contrast exam is again negative. Comment: Preliminary interpretation made by [facility]. No critical discrepancy.
== END 2022-04-26 05:51 | disposition home or self-care (01) ==
LOC: ED 03:34
DX: R10.13 Epigastric pain (principal); R11.2 Nausea with vomiting, unspecified; K58.0 Irritable bowel syndrome with diarrhea; Z79.899 Other long term (current) drug therapy
CPT/HCPCS: 36415; 74176; 80053; 80307; 81015; 82150; 83690; 84484; 84703; 85025; 96374; 99283; J1885

== ENCOUNTER 2022-05-18 16:41 | Emergency (ER) | payer MEDICARE ==
--- NOTE | 2022-05-18 16:50 | ERPHSYRPT ---
- History of Present Illness Time Seen by Provider: 05/18/22 16:49 Source: patient Exam Limitations: no limitations Physician History: This is a 36-year-old overweight white female who is diabetic. Her primary care doctor is Dr. Massey. She has a history of COPD, hyperlipidemia, hypertension, gastroesophageal reflux disease, fibromyalgia and bipolar disorder. Patient has noticed her last week that she just overall has not been feeling well. She was concerned today because her blood sugars were fluctuating between low 80s and mid 200s. She denies chest pain. She denies shortness of breath. She has not had any vomiting or diarrhea symptoms. There is been no changes to her medications per her report. Patient states that she has been tested for COVID recently and it was negative Timing/Duration: today Severity: mild Associated Symptoms: denies symptoms, weakness, No nausea, No vomiting, No abdominal pain, No shortness of breath, No chest pain, No fever Allergies/Adverse Reactions: barley Allergy (Mild, Verified 04/03/22 01:47) wheat Allergy (Mild, Verified 04/03/22 01:47) corn Allergy (Verified 04/03/22 01:47) gluten Allergy (Verified 04/03/22 01:47) magnesium citrate Allergy (Verified 04/03/22 01:47) morphine Allergy (Verified 04/03/22 01:47) Rash venom-honey bee [bee venom (honey bee)] Allergy (Verified 04/03/22 01:47) seasonal allergies Allergy (Mild, Uncoded 04/03/22 01:47) Difficulty Breathing Home Medications: Albuterol 2.5 mg/3 ml Neb [Proventil 2.5 mg/3 ml Neb] 2.5 mg IH DAILY 10/13/16 [History] Mometasone/Formoterol [Dulera 100 Mcg-5 Mcg Inhaler] 13 gm IH Q4H PRN PRN 10/13/16 [History] buPROPion HCL [Wellbutrin Sr] 150 mg PO DAILY 10/13/16 [History] Lurasidone HCl [Latuda] 20 mg PO HS 03/10/17 [History] Pregabalin 50 mg [Lyrica 50MG] 50 mg PO DAILY 08/19/18 [History] Atorvastatin Calcium [Lipitor 20MG Tablet] 20 mg PO DAILY 06/01/19 [History] Tizanidine HCl 4 mg [Zanaflex 4 MG] 4 mg PO DAILY 06/01/19 [History] Cefdinir 300 mg PO DAILY 05/18/22 [History] Hx Tetanus, Diphtheria Vaccination/Date Given: Yes Hx Influenza Vaccination/Date Given: Yes Hx Pneumococcal Vaccination/Date Given: No Travel Risk - International Travel Have you traveled outside of the country in past 3 weeks: No - Coronavirus Screening Are you exhibiting any of the following symptoms?: No Close contact with a COVID-19 positive Pt in past 14-21 Days: No - Vaccine Status Have you recieved a Covid-19 vaccination: Yes Surgical Instrument Maker: Moderna - Vaccination Dates Date of 2cond Vaccination (if applicable): unknown - Review of Systems Constitutional: Weakness Eyes: No Symptoms Ears, Nose, & Throat: No Symptoms Respiratory: No Symptoms Cardiac: No Symptoms Abdominal/Gastrointestinal: No Symptoms Genitourinary Symptoms: No Symptoms Musculoskeletal: No Symptoms Skin: No Symptoms Neurological: No Symptoms Psychological: No Symptoms Endocrine: No Symptoms Hematologic/Lymphatic: No Symptoms Immunological/Allergic: No Symptoms All Other Systems: Reviewed and Negative - Past Medical History Pertinent Past Medical History: Yes Neurological History: No Pertinent History ENT History: Other Cardiac History: High Cholesterol, Hypertension Respiratory History: Asthma, COPD Endocrine Medical History: No Pertinent History Musculoskeletal History: Arthritis, Fibromyalgia, Osteoarthritis GI Medical History: GERD History: Other Psycho-Social History: Bipolar, Depression, Other Female Reproductive Disorders: Other Other Medical History: PATIENT REPORTS DX'D WITH FIBRO 3 YEARS AGO. HX OF ARTHRITIS IN THE KNEES. HX OF P.T. FOR BACK, NECK (C7 FUSION), AND SHOULDER. NEUROSTIMULATOR IMPLANT FOR PAIN IN ANKLE. HX OF BIPOLAR. kidney stones - Past Surgical History Past Surgical History: Yes Neuro Surgical History: No Pertinent History Cardiac: No Pertinent History Respiratory: No Pertinent History Gastrointestinal: Cholecystectomy Genitourinary: No Pertinent History Musculoskeletal: Orthopedic Surgery Female Surgical History: No Pertinent History Other Surgical History: cyst removal x 2, C6-C7 fusion - Social History Smoking Status: Never smoker Exposure to second hand smoke: Yes Alcohol Use: None Drug Use: none Patient Lives Alone: No Significant Family History: no pertinent family hx - Nursing Vital Signs Nursing Vital Signs: Initial Vital Signs Temperature 97.9 F 05/18/22 16:45 Pulse Rate 88 05/18/22 16:45 Respiratory Rate 22 05/18/22 16:45 Blood Pressure 152/92 05/18/22 16:45 O2 Sat by Pulse Oximetry 97 05/18/22 16:45 Pain Scale Pain Intensity 2 - Physical Exam General Appearance: no apparent distress, alert, anxiety, obese Eye Exam: PERRL/EOMI, eyes nml inspection Ears, Nose, Throat Exam: normal ENT inspection, moist mucous membranes Neck Exam: normal inspection, non-tender, supple, full range of motion Respiratory Exam: normal breath sounds, lungs clear, airway intact, No chest tenderness, No respiratory distress Cardiovascular Exam: regular rate/rhythm, normal heart sounds, normal peripheral pulses Gastrointestinal/Abdomen Exam: soft, normal bowel sounds, No tenderness Pelvic Exam: not done Rectal Exam: not done Back Exam: normal inspection, normal range of motion, No CVA tenderness, No vertebral tenderness Extremity Exam: normal inspection, normal range of motion, pelvis stable Neurologic Exam: alert, oriented x 3, cooperative, 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, normal mood/affect, nml cerebellar function, nml station & gait, sensation nml Skin Exam: normal color, warm, dry Lymphatic Exam: No adenopathy SpO2 Interpretation: normal O2 Delivery: Room Air - Course Nursing assessment & vital signs reviewed: Yes EKG Interpreted by Me: RATE (81), Sinus Rhythm, NORMAL AXIS, NORMAL INTERVALS, NORMAL QRS, Non-specific ST Changes, Other (No acute ischemic changes on today's EKG.) Ordered Tests: Active Orders 24 hr Category Date Time Status EKG-ER Only STAT Care 05/18/22 17:15 Active CBC W DIFF Stat Lab 05/18/22 17:40 Completed CMP Stat Lab 05/18/22 17:40 Completed HCG,QUALITATIVE URINE Stat Lab 05/18/22 17:58 Completed Lactic Acid Stat Lab 05/18/22 17:35 Completed [place] Screen Stat Lab 05/18/22 17:40 Received POCT GLUCOSE Stat Lab 05/18/22 16:48 Completed T4 (Thyroxine) Stat Lab 05/18/22 17:40 Completed TROPONIN Q4H Lab 05/18/22 17:40 Completed TROPONIN Q4H Lab 05/18/22 21:15 Ordered TROPONIN Q4H Lab 05/19/22 01:15 Ordered TSH [TSH, 3RD Generation] Stat Lab 05/18/22 17:40 Completed UA W/RFX CULTURE Stat Lab 05/18/22 17:58 Completed Urine Triage Profile Stat Lab 05/18/22 17:58 Completed Lab/Rad Data: Laboratory Result Diagrams 05/18/22 17:40 05/18/22 17:40 Laboratory Results 05/18/22 05/18/22 05/18/22 Range/Units 17:58 17:58 17:58 WBC (4.0-10.5) x10^3/uL RBC (4.1-5.4) x10^6/uL Hgb (12.0-16.0) g/dL Hct (35-47) % MCV (78-100) fL MCH (26-32) pg MCHC (32-36) g/dL RDW (11.5-14.0) % Plt Count (150-450) x10^3/uL MPV (7.5-11.0) fL Gran % (36.0-66.0) % Immature Gran % (Auto) (0.00-0.4) % Nucleat RBC Rel Count (0.00-0.1) % Eos # (Auto) (0-0.5) x10^3/uL Immature Gran # (Auto) (0.00-0.03) x10^3u/L Absolute Lymphs (auto) (1.0-4.6) x10^3/uL Absolute Monos (auto) (0.0-1.3) x10^3/uL Absolute Nucleated RBC (0.00-0.01) x10^3u/L Lymphocytes % (24.0-44.0) % Monocytes % (0.0-12.0) % Eosinophils % (0.00-5.0) % Basophils % (0.0-0.4) % Absolute Granulocytes (1.4-6.9) x10^3/uL Basophils # (0-0.4) x10^3/uL Sodium (137-145) mmol/L Potassium (3.5-5.1) mmol/L Chloride (98-107) mmol/L Carbon Dioxide (22-30) mmol/L Anion Gap (5-15) MEQ/L BUN (7-17) mg/dL Creatinine (0.52-1.04) mg/dL Estimated GFR ML/MIN Glucose (74-106) mg/dL POC Glucometer (74 to 106) mg/dL Lactic Acid (0.4-2.0) Calcium (8.4-10.2) mg/dL Total Bilirubin (0.2-1.3) mg/dL AST (14-36) U/L ALT (0-35) U/L Alkaline Phosphatase (38-126) U/L Troponin I (0.000-0.034) ng/mL Serum Total Protein (6.3-8.2) g/dL Albumin (3.5-5.0) g/dL Thyroxine (T4) (5.53-10.96) ug/dL TSH 3rd Generation (0.47-4.68) mIU/L Urinalys Dipstick Clnc MAIN LAB Urine Color YELLOW (YELLOW) Urine Appearance CLEAR (CLEAR) Urine pH 6.5 (5-6) Ur Specific Zahl 1.025 (1.005-1.025) POC Urine Protein Conf NEGATIVE (Negative) Urine Ketones TRACE A (NEGATIVE) Urine Nitrite NEGATIVE (NEGATIVE) Urine Bilirubin NEGATIVE (NEGATIVE) Urine Urobilinogen 0.2 (0-1) mg/dL Urine Leukocytes NEGATIVE (NEGATIVE) Urine WBC (Auto) 3-5 A (0-5) /HPF Urine RBC (Auto) 3-5 A (0-2) /HPF U Epithel Cells (Auto) RARE (FEW) /HPF Urine Bacteria (Auto) Not Reportable Urine RBC TRACE-INTACT A (0-5) Amandeep/ul Urine Mucus (Auto) SLIGHT A (NEGATIVE) /HPF Ur Culture Indicated? NO Urine Glucose NEGATIVE (NEGATIVE) mg/dL Urine HCG, Qual NEGATIVE (Negative) Urine Opiates Level NEGATIVE (NEGATIVE) Ur Methadone NEGATIVE (NEGATIVE) Urine Barbiturates NEGATIVE (NEGATIVE) Ur Phencyclidine (PCP) NEGATIVE (NEGATIVE) Urine Amphetamine NEGATIVE (NEGATIVE) U Benzodiazepine Level NEGATIVE (NEGATIVE) Urine Cocaine NEGATIVE (NEGATIVE) Urine Marijuana (THC) NEGATIVE (NEGATIVE) 05/18/22 05/18/22 05/18/22 Range/Units 17:40 17:40 17:40 WBC (4.0-10.5) x10^3/uL RBC (4.1-5.4) x10^6/uL Hgb (12.0-16.0) g/dL Hct (35-47) % MCV (78-100) fL MCH (26-32) pg MCHC (32-36) g/dL RDW (11.5-14.0) % Plt Count (150-450) x10^3/uL MPV (7.5-11.0) fL Gran % (36.0-66.0) % Immature Gran % (Auto) (0.00-0.4) % Nucleat RBC Rel Count (0.00-0.1) % Eos # (Auto) (0-0.5) x10^3/uL Immature Gran # (Auto) (0.00-0.03) x10^3u/L Absolute Lymphs (auto) (1.0-4.6) x10^3/uL Absolute Monos (auto) (0.0-1.3) x10^3/uL Absolute Nucleated RBC (0.00-0.01) x10^3u/L Lymphocytes % (24.0-44.0) % Monocytes % (0.0-12.0) % Eosinophils % (0.00-5.0) % Basophils % (0.0-0.4) % Absolute Granulocytes (1.4-6.9) x10^3/uL Basophils # (0-0.4) x10^3/uL Sodium 138 (137-145) mmol/L Potassium 3.7 (3.5-5.1) mmol/L Chloride 103 (98-107) mmol/L Carbon Dioxide 27 (22-30) mmol/L Anion Gap 11.6 (5-15) MEQ/L BUN 13 (7-17) mg/dL Creatinine 0.64 (0.52-1.04) mg/dL Estimated GFR > 60.0 ML/MIN Glucose 90 (74-106) mg/dL POC Glucometer (74 to 106) mg/dL Lactic Acid (0.4-2.0) Calcium 9.1 (8.4-10.2) mg/dL Total Bilirubin 0.60 (0.2-1.3) mg/dL AST 33 (14-36) U/L ALT 30 (0-35) U/L Alkaline Phosphatase 69 (38-126) U/L Troponin I (0.000-0.034) ng/mL Serum Total Protein 8.0 (6.3-8.2) g/dL Albumin 4.4 (3.5-5.0) g/dL Thyroxine (T4) 9.68 (5.53-10.96) ug/dL TSH 3rd Generation 1.510 (0.47-4.68) mIU/L Urinalys Dipstick Clnc Urine Color (YELLOW) Urine Appearance (CLEAR) Urine pH (5-6) Ur Specific Zahl (1.005-1.025) POC Urine Protein Conf (Negative) Urine Ketones (NEGATIVE) Urine Nitrite (NEGATIVE) Urine Bilirubin (NEGATIVE) Urine Urobilinogen (0-1) mg/dL Urine Leukocytes (NEGATIVE) Urine WBC (Auto) (0-5) /HPF Urine RBC (Auto) (0-2) /HPF U Epithel Cells (Auto) (FEW) /HPF Urine Bacteria (Auto) Urine RBC (0-5) Amandeep/ul Urine Mucus (Auto) (NEGATIVE) /HPF Ur Culture Indicated? Urine Glucose (NEGATIVE) mg/dL Urine HCG, Qual (Negative) Urine Opiates Level (NEGATIVE) Ur Methadone (NEGATIVE) Urine Barbiturates (NEGATIVE) Ur Phencyclidine (PCP) (NEGATIVE) Urine Amphetamine (NEGATIVE) U Benzodiazepine Level (NEGATIVE) Urine Cocaine (NEGATIVE) Urine Marijuana (THC) (NEGATIVE) 05/18/22 05/18/22 05/18/22 Range/Units 17:40 17:40 17:35 WBC 8.7 (4.0-10.5) x10^3/uL RBC 4.12 (4.1-5.4) x10^6/uL Hgb 12.8 (12.0-16.0) g/dL Hct 40.0 (35-47) % MCV 97.1 (78-100) fL MCH 31.1 (26-32) pg MCHC 32.0 (32-36) g/dL RDW 12.7 (11.5-14.0) % Plt Count 249 (150-450) x10^3/uL MPV 10.0 (7.5-11.0) fL Gran % 62.7 (36.0-66.0) % Immature Gran % (Auto) 0.2 (0.00-0.4) % Nucleat RBC Rel Count 0.0 (0.00-0.1) % Eos # (Auto) 0.29 (0-0.5) x10^3/uL Immature Gran # (Auto) 0.02 (0.00-0.03) x10^3u/L Absolute Lymphs (auto) 2.52 (1.0-4.6) x10^3/uL Absolute Monos (auto) 0.40 (0.0-1.3) x10^3/uL Absolute Nucleated RBC 0.00 (0.00-0.01) x10^3u/L Lymphocytes % 29.1 (24.0-44.0) % Monocytes % 4.6 (0.0-12.0) % Eosinophils % 3.3 (0.00-5.0) % Basophils % 0.1 (0.0-0.4) % Absolute Granulocytes 5.42 (1.4-6.9) x10^3/uL Basophils # 0.01 (0-0.4) x10^3/uL Sodium (137-145) mmol/L Potassium (3.5-5.1) mmol/L Chloride (98-107) mmol/L Carbon Dioxide (22-30) mmol/L Anion Gap (5-15) MEQ/L BUN (7-17) mg/dL Creatinine (0.52-1.04) mg/dL Estimated GFR ML/MIN Glucose (74-106) mg/dL POC Glucometer (74 to 106) mg/dL Lactic Acid 0.6 (0.4-2.0) Calcium (8.4-10.2) mg/dL Total Bilirubin (0.2-1.3) mg/dL AST (14-36) U/L ALT (0-35) U/L Alkaline Phosphatase (38-126) U/L Troponin I < 0.012 (0.000-0.034) ng/mL Serum Total Protein (6.3-8.2) g/dL Albumin (3.5-5.0) g/dL Thyroxine (T4) (5.53-10.96) ug/dL TSH 3rd Generation (0.47-4.68) mIU/L Urinalys Dipstick Clnc Urine Color (YELLOW) Urine Appearance (CLEAR) Urine pH (5-6) Ur Specific Zahl (1.005-1.025) POC Urine Protein Conf (Negative) Urine Ketones (NEGATIVE) Urine Nitrite (NEGATIVE) Urine Bilirubin (NEGATIVE) Urine Urobilinogen (0-1) mg/dL Urine Leukocytes (NEGATIVE) Urine WBC (Auto) (0-5) /HPF Urine RBC (Auto) (0-2) /HPF U Epithel Cells (Auto) (FEW) /HPF Urine Bacteria (Auto) Urine RBC (0-5) Amandeep/ul Urine Mucus (Auto) (NEGATIVE) /HPF Ur Culture Indicated? Urine Glucose (NEGATIVE) mg/dL Urine HCG, Qual (Negative) Urine Opiates Level (NEGATIVE) Ur Methadone (NEGATIVE) Urine Barbiturates (NEGATIVE) Ur Phencyclidine (PCP) (NEGATIVE) Urine Amphetamine (NEGATIVE) U Benzodiazepine Level (NEGATIVE) Urine Cocaine (NEGATIVE) Urine Marijuana (THC) (NEGATIVE) 05/18/22 Range/Units 16:48 WBC (4.0-10.5) x10^3/uL RBC (4.1-5.4) x10^6/uL Hgb (12.0-16.0) g/dL Hct (35-47) % MCV (78-100) fL MCH (26-32) pg MCHC (32-36) g/dL RDW (11.5-14.0) % Plt Count (150-450) x10^3/uL MPV (7.5-11.0) fL Gran % (36.0-66.0) % Immature Gran % (Auto) (0.00-0.4) % Nucleat RBC Rel Count (0.00-0.1) % Eos # (Auto) (0-0.5) x10^3/uL Immature Gran # (Auto) (0.00-0.03) x10^3u/L Absolute Lymphs (auto) (1.0-4.6) x10^3/uL Absolute Monos (auto) (0.0-1.3) x10^3/uL Absolute Nucleated RBC (0.00-0.01) x10^3u/L Lymphocytes % (24.0-44.0) % Monocytes % (0.0-12.0) % Eosinophils % (0.00-5.0) % Basophils % (0.0-0.4) % Absolute Granulocytes (1.4-6.9) x10^3/uL Basophils # (0-0.4) x10^3/uL Sodium (137-145) mmol/L Potassium (3.5-5.1) mmol/L Chloride (98-107) mmol/L Carbon Dioxide (22-30) mmol/L Anion Gap (5-15) MEQ/L BUN (7-17) mg/dL Creatinine (0.52-1.04) mg/dL Estimated GFR ML/MIN Glucose (74-106) mg/dL POC Glucometer 85 (74 to 106) mg/dL Lactic Acid (0.4-2.0) Calcium (8.4-10.2) mg/dL Total Bilirubin (0.2-1.3) mg/dL AST (14-36) U/L ALT (0-35) U/L Alkaline Phosphatase (38-126) U/L Troponin I (0.000-0.034) ng/mL Serum Total Protein (6.3-8.2) g/dL Albumin (3.5-5.0) g/dL Thyroxine (T4) (5.53-10.96) ug/dL TSH 3rd Generation (0.47-4.68) mIU/L Urinalys Dipstick Clnc Urine Color (YELLOW) Urine Appearance (CLEAR) Urine pH (5-6) Ur Specific Zahl (1.005-1.025) POC Urine Protein Conf (Negative) Urine Ketones (NEGATIVE) Urine Nitrite (NEGATIVE) Urine Bilirubin (NEGATIVE) Urine Urobilinogen (0-1) mg/dL Urine Leukocytes (NEGATIVE) Urine WBC (Auto) (0-5) /HPF Urine RBC (Auto) (0-2) /HPF U Epithel Cells (Auto) (FEW) /HPF Urine Bacteria (Auto) Urine RBC (0-5) Amandeep/ul Urine Mucus (Auto) (NEGATIVE) /HPF Ur Culture Indicated? Urine Glucose (NEGATIVE) mg/dL Urine HCG, Qual (Negative) Urine Opiates Level (NEGATIVE) Ur Methadone (NEGATIVE) Urine Barbiturates (NEGATIVE) Ur Phencyclidine (PCP) (NEGATIVE) Urine Amphetamine (NEGATIVE) U Benzodiazepine Level (NEGATIVE) Urine Cocaine (NEGATIVE) Urine Marijuana (THC) (NEGATIVE) - Progress Progress: improved Counseled pt/family regarding: lab results, diagnosis, need for follow-up - Departure Departure Disposition: Home Clinical Impression: Anxiety about health, Diabetes Condition: Stable Critical Care Time: No Referrals: ANDRES MASSEY [Primary Care Provider] - Follow up/PCP as directed Additional Instructions: Continue your medication as prescribed. Continue monitoring your blood sugar levels and treat them accordingly. Follow-up with your primary care provider tomorrow to make arrangements for follow-up appointment for further evaluation and management.
[2022-05-18 17:50] LABS: Absolute Neutrophil Ct (ANC) 5.42 x10^3/uL (1.4-6.9); Basophil (Absolute #) 0.01 x10^3/uL (0-0.4); Eosinophil % 3.3 % (0.00-5.0); Eosinophil (Absolute #) 0.29 x10^3/uL (0-0.5); Hemoglobin 12.8 g/dL (12.0-16.0); Lymphocyte (Absolute #) 2.52 x10^3/uL (1.0-4.6); Lymphocytes % 29.1 % (24.0-44.0); Mean Cell Volume 97.1 fL (78-100); Mean Corpuscular Hemoglobin 31.1 pg (26-32); Monocytes % 4.6 % (0.0-12.0); Neutrophil % 62.7 % (36.0-66.0); Platelet Count 249 x10^3/uL (150-450); Red Blood Count 4.12 x10^6/uL (4.1-5.4); Red Cell Distribution Width 12.7 % (11.5-14.0); White Blood Count 8.7 x10^3/uL (4.0-10.5)
[2022-05-18 17:57] LABS: ALBUMIN 4.4 g/dL (3.5-5.0); ALKALINE PHOSPHATASE 69 U/L (38-126); ANION GAP 11.6 MEQ/L (5-15); BLOOD UREA NITROGEN 13 mg/dL (7-17); CHLORIDE 103 mmol/L (98-107); Calcium 9.1 mg/dL (8.4-10.2); Carbon Dioxide 27 mmol/L (22-30); Creatinine 1 0.64 mg/dL (0.52-1.04); EST GLOMERULAR FILTRATION RATE > 60.0 ML/MIN; Glucose 90 mg/dL (74-106); Potassium 3.7 mmol/L (3.5-5.1); SGOT/AST 33 U/L (14-36); SGPT/ALT 30 U/L (0-35); SODIUM 138 mmol/L (137-145)
[2022-05-18 18:19] LABS: Epithelial Cells RARE /HPF (FEW); Mucus SLIGHT /HPF (NEGATIVE)
[2022-05-18 18:31] LABS: Amphetamine,Urine NEGATIVE (NEGATIVE); Barbiturate,Urine NEGATIVE (NEGATIVE); Benzodiazepine,Urine NEGATIVE (NEGATIVE); Cocaine,Urine NEGATIVE (NEGATIVE); Methadone,Urine NEGATIVE (NEGATIVE); Opiate,Urine NEGATIVE (NEGATIVE); PCP,Urine NEGATIVE (NEGATIVE); THC,Urine NEGATIVE (NEGATIVE)
[2022-05-18 18:48] LABS: Appearance CLEAR (CLEAR); Bilirubin NEGATIVE (NEGATIVE); Glucose NEGATIVE (NEGATIVE); Ketones TRACE (NEGATIVE); Nitrite NEGATIVE (NEGATIVE); Ph 6.5 (5-6); Protein,Urine Dip NEGATIVE (Negative); RBC TRACE-INTACT Ery/ul (0-5); Specific Gravity 1.025 (1.005-1.025); Urobilinogen 0.2 mg/dL (0-1)
[2022-05-18 18:49] LABS: Dipstick done @ ? MAIN LAB
[2022-05-18 18:50] LABS: Urine Cultured Indicated? NO
[2022-05-18 19:16] VITALS: BP 126/92; PULSE 65; O2SAT 96
== END 2022-05-18 19:16 | disposition home or self-care (01) ==
LOC: ED 16:41
DX: F45.9 Somatoform disorder, unspecified (principal); E11.9 Type 2 diabetes mellitus without complications; E78.5 Hyperlipidemia, unspecified; I10 Essential (primary) hypertension; Z79.899 Other long term (current) drug therapy
CPT/HCPCS: 36415; 80053; 80307; 81015; 81025; 82947; 83605; 84436; 84443; 84484; 85025; 86308; 93005; 99283

== ENCOUNTER 2022-05-27 09:18 | Emergency (ER) | payer MEDICARE ==
[2022-05-27] MEDS ORDERED: Sodium Chloride 0.9% 1000 ML 1,000 ML IV STA (09:46)
[2022-05-27] MEDS ORDERED: Zofran 4 MG/2 ML VIAL IV ONE (09:46)
--- NOTE | 2022-05-27 09:53 | ERPHSYRPT ---
- History of Present Illness Historian: patient Exam Limitations: no limitations Patient Subjective Stated Complaint: pt here for vomiting since 0300 today,co some burning in belly,pt stated went to clinic for a work note and was sent here to be seen Triage Nursing Assessment: pt alert, resp easy, arrived per wc, skin w/d/p abd soft, vomited x1, no fever Physician History: 36 yo wf w N/V x 2 days. Pt has a h/o N/V due to GERD. She went to her [employer] today who thought that her cardiac auscultation exam was abnormal, so she was sent to the ER. Pt has "burning" epigastric pain which is rated a 2/10. She has chronic diarrhea but denies diarrhea at this time. Chest pain/hematemesis/melena/hematochezia/dysuria/hematuria all denied. Timing/Duration: other (2 days) Activities at Onset: rest Quality: burning Abdominal Pain Onset Location: epigastric Pain Radiation: no radiation Severity of Pain-Max: moderate Severity of Pain-Current: mild Modifying Factors: Improves With: nothing, vomiting Associated Symptoms: denies symptoms Previous symptoms: same symptoms as today Allergies/Adverse Reactions: barley Allergy (Mild, Verified 05/27/22 09:22) wheat Allergy (Mild, Verified 05/27/22 09:22) corn Allergy (Verified 05/27/22 09:22) gluten Allergy (Verified 05/27/22 09:22) magnesium citrate Allergy (Verified 05/27/22 09:22) morphine Allergy (Verified 05/27/22 09:22) Rash venom-honey bee [bee venom (honey bee)] Allergy (Verified 05/27/22 09:22) seasonal allergies Allergy (Mild, Uncoded 05/27/22 09:22) Difficulty Breathing Home Medications: Albuterol 2.5 mg/3 ml Neb [Proventil 2.5 mg/3 ml Neb] 2.5 mg IH DAILY 12/24 [History] Mometasone/Formoterol [Dulera 100 Mcg-5 Mcg Inhaler] 13 gm IH Q4H PRN PRN 10/13/16 [History] buPROPion HCL [Wellbutrin Sr] 150 mg PO DAILY 10/13/16 [History] Lurasidone HCl [Latuda] 20 mg PO HS 03/10/17 [History] Pregabalin 50 mg [Lyrica 50MG] 50 mg PO DAILY 08/19/18 [History] Atorvastatin Calcium [Lipitor 20MG Tablet] 20 mg PO DAILY 06/01/19 [History] Tizanidine HCl 4 mg [Zanaflex 4 MG] 4 mg PO DAILY 06/01/19 [History] Hx Tetanus, Diphtheria Vaccination/Date Given: Yes Hx Influenza Vaccination/Date Given: Yes Hx Pneumococcal Vaccination/Date Given: No Immunizations Up to Date: Yes Travel Risk - International Travel Have you traveled outside of the country in past 3 weeks: No - Coronavirus Screening Are you exhibiting any of the following symptoms?: No - Vaccine Status Have you recieved a Covid-19 vaccination: Yes 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 - Vaccination Dates Date of 2cond Vaccination (if applicable): unknown - Review of Systems Constitutional: No Symptoms Eyes: No Symptoms Ears, Nose, & Throat: No Symptoms Respiratory: No Symptoms Cardiac: No Symptoms Abdominal/Gastrointestinal: No Symptoms, Abdominal Pain, Nausea, Vomiting Genitourinary Symptoms: No Symptoms Musculoskeletal: No Symptoms Skin: No Symptoms Neurological: No Symptoms Psychological: No Symptoms Endocrine: No Symptoms Hematologic/Lymphatic: No Symptoms Immunological/Allergic: No Symptoms - Past Medical History Pertinent Past Medical History: Yes Neurological History: No Pertinent History ENT History: Other Cardiac History: High Cholesterol, Hypertension Respiratory History: Asthma, COPD Endocrine Medical History: No Pertinent History Musculoskeletal History: Arthritis, Fibromyalgia, Osteoarthritis GI Medical History: GERD History: Other Psycho-Social History: Bipolar, Depression, Other Female Reproductive Disorders: Other Other Medical History: PATIENT REPORTS DX'D WITH FIBRO 3 YEARS AGO. HX OF ARTHRITIS IN THE KNEES. HX OF P.T. FOR BACK, NECK (C7 FUSION), AND SHOULDER. NEUROSTIMULATOR IMPLANT FOR PAIN IN ANKLE. HX OF BIPOLAR. kidney stones - Past Surgical History Past Surgical History: Yes Neuro Surgical History: No Pertinent History Cardiac: No Pertinent History Respiratory: No Pertinent History Gastrointestinal: Cholecystectomy Genitourinary: No Pertinent History Musculoskeletal: Orthopedic Surgery Female Surgical History: No Pertinent History Other Surgical History: cyst removal x 2, C6-C7 fusion - Social History Smoking Status: Never smoker Exposure to second hand smoke: Yes Alcohol Use: None Drug Use: none Patient Lives Alone: No Significant Family History: no pertinent family hx - Female History Hx Last Menstrual Period: 2 weeks ag0 Hx Now: No - Nursing Vital Signs Nursing Vital Signs: Initial Vital Signs Temperature 96.8 F 05/27/22 09:24 Pulse Rate 80 05/27/22 09:24 Respiratory Rate 18 05/27/22 09:24 Blood Pressure 111/92 05/27/22 09:24 O2 Sat by Pulse Oximetry 97 05/27/22 09:24 Pain Scale Pain Intensity 4 - Physical Exam General Appearance: no apparent distress Eye Exam: PERRL/EOMI, eyes nml inspection Ears, Nose, Throat Exam: normal ENT inspection, TMs normal, pharynx normal, moist mucous membranes Neck Exam: normal inspection, non-tender, supple, full range of motion, No meningismus, No mass, No Brudzinski, No Kernig's Respiratory Exam: normal breath sounds, lungs clear, airway intact Cardiovascular Exam: other (Ir-Ir) Gastrointestinal/Abdomen Exam: soft, normal bowel sounds, tenderness (Moderate epigastric TTP wo guarding or rebound) Back Exam: normal inspection, normal range of motion, No CVA tenderness Extremity Exam: normal inspection, normal range of motion Neurologic Exam: alert, oriented x 3, cooperative, chute builder II-XII nml as tested, normal mood/affect, nml cerebellar function, nml station & gait, sensation nml Skin Exam: normal color, warm, dry Lymphatic Exam: No adenopathy SpO2 Interpretation: normal SpO2: 97 O2 Delivery: Room Air - Course Nursing assessment & vital signs reviewed: Yes EKG Interpreted by Me: RATE (Afib/RVR/Prolonged QTc/EKG #2Afib/RVR/Normal QT- QTc/PVC/No acute ST segment changes) Ordered Tests: Active Orders 24 hr Category Date Time Status EKG-ER Only STAT Care 05/27/22 09:46 Completed AMYLASE Stat Lab 05/27/22 10:00 Completed CBC W DIFF Stat Lab 05/27/22 10:00 Completed CMP Stat Lab 05/27/22 10:00 Completed LIPASE Stat Lab 05/27/22 10:00 Completed MAGNESIUM Stat Lab 05/27/22 10:37 Completed PROTIME WITH INR Stat Lab 05/27/22 10:00 Completed PTT Stat Lab 05/27/22 10:00 Completed TROPONIN Q4H Lab 05/27/22 10:00 Completed TROPONIN Q4H Lab 05/27/22 14:16 Completed Medication Summary Discontinued Medications Generic Name Dose Route Start Last Admin Trade Name Freq PRN Reason Stop Dose Admin Diltiazem HCl Confirm 05/27/22 10:03 Diltiazem Hcl Iv 5 Mg/Ml Vial Administered 05/27/22 10:04 Dose 50 mg IV .STK-MED ONE Diltiazem HCl 15 mg 05/27/22 10:11 05/27/22 10:11 Diltiazem Hcl Iv 5 Mg/Ml Vial IV 05/27/22 10:12 15 mg STAT ONE Administration Diltiazem HCl 10 mg 05/27/22 10:22 05/27/22 10:24 Diltiazem Hcl Iv 5 Mg/Ml Vial IV 05/27/22 10:23 10 mg STAT ONE Administration Enoxaparin Sodium 120 mg 05/27/22 12:12 05/27/22 13:01 Enoxaparin Sodium 120 Mg/0.8 Ml Syringe SQ 05/27/22 12:13 120 mg STAT STA Administration Enoxaparin Sodium Confirm 05/27/22 12:57 Enoxaparin Sodium 120 Mg/0.8 Ml Syringe Administered 05/27/22 12:58 Dose 120 mg SQ .STK-MED ONE Sodium Chloride 1,000 mls @ 999 mls/hr 05/27/22 09:46 05/27/22 11:27 Sodium Chloride 0.9% 1000 Ml IV 05/27/22 10:46 Infused .Q1H1M STA Infusion Sodium Chloride Confirm 05/27/22 10:06 Sodium Chloride 0.9% 1000 Ml Administered 05/27/22 10:07 Dose 1,000 mls @ ud .ROUTE .STK-MED ONE Diltiazem HCl 100 mls @ 5 mls/hr 05/27/22 10:11 05/27/22 11:28 Cardizem Drip 100 Mg/100 Ml D5w IV 06/26/22 10:10 10 mg/hr .Q20H PRN 10 mls/hr HEART RATE/ A-FIB Titration Protocol 5 MG/HR Sodium Chloride Confirm 05/27/22 11:53 Sodium Chloride 0.9% 1000 Ml Administered 05/27/22 11:54 Dose 1,000 mls @ ud .ROUTE .STK-MED ONE Diltiazem HCl Confirm 05/27/22 10:22 Cardizem Drip 100 Mg/100 Ml D5w Administered 05/27/22 10:23 Dose 100 mls @ ud IV .STK-MED ONE Metoprolol Tartrate 5 mg 05/27/22 11:16 05/27/22 11:20 Metoprolol Tartrate 5 Mg/5 Ml Vial IV 05/27/22 11:17 5 mg STAT ONE Administration Metoprolol Tartrate Confirm 05/27/22 11:19 Metoprolol Tartrate 5 Mg/5 Ml Vial Administered 05/27/22 11:20 Dose 5 mg IV .STK-MED ONE Metoprolol Tartrate 50 mg 05/28/22 11:42 05/27/22 11:50 Metoprolol Tartrate 50 Mg Tablet PO 05/28/22 11:43 50 mg STAT ONE Administration Metoprolol Tartrate Confirm 05/27/22 11:49 Metoprolol Tartrate 50 Mg Tablet Administered 05/27/22 11:50 Dose 50 mg .ROUTE .STK-MED ONE Metoprolol Tartrate 5 mg 05/27/22 12:31 05/27/22 15:01 Metoprolol Tartrate 5 Mg/5 Ml Vial IV 05/27/22 12:32 Not Given STAT ONE Ondansetron HCl 4 mg 05/27/22 09:46 05/27/22 10:09 Ondansetron Hcl 4 Mg/2 Ml Vial IV 05/27/22 09:47 4 mg STAT ONE Administration Ondansetron HCl Confirm 05/27/22 10:05 Ondansetron Hcl 4 Mg/2 Ml Vial Administered 05/27/22 10:06 Dose 4 mg .ROUTE .STK-MED ONE Lab/Rad Data: Laboratory Result Diagrams 05/27/22 10:00 05/27/22 10:00 Laboratory Results 05/27/22 05/27/22 05/27/22 Range/Units 14:16 11:57 10:37 WBC (4.0-10.5) x10^3/uL RBC (4.1-5.4) x10^6/uL Hgb (12.0-16.0) g/dL Hct (35-47) % MCV (78-100) fL MCH (26-32) pg MCHC (32-36) g/dL RDW (11.5-14.0) % Plt Count (150-450) x10^3/uL MPV (7.5-11.0) fL Gran % (36.0-66.0) % Immature Gran % (Auto) (0.00-0.4) % Nucleat RBC Rel Count (0.00-0.1) % Eos # (Auto) (0-0.5) x10^3/uL Immature Gran # (Auto) (0.00-0.03) x10^3u/L Absolute Lymphs (auto) (1.0-4.6) x10^3/uL Absolute Monos (auto) (0.0-1.3) x10^3/uL Absolute Nucleated RBC (0.00-0.01) x10^3u/L Lymphocytes % (24.0-44.0) % Monocytes % (0.0-12.0) % Eosinophils % (0.00-5.0) % Basophils % (0.0-0.4) % Absolute Granulocytes (1.4-6.9) x10^3/uL Basophils # (0-0.4) x10^3/uL PT (9.4-12.5) SECONDS INR (0.8-3.0) APTT (25.1-36.5) SECONDS Sodium (137-145) mmol/L Potassium (3.5-5.1) mmol/L Chloride (98-107) mmol/L Carbon Dioxide (22-30) mmol/L Anion Gap (5-15) MEQ/L BUN (7-17) mg/dL Creatinine (0.52-1.04) mg/dL Estimated GFR ML/MIN Glucose (74-106) mg/dL Calcium (8.4-10.2) mg/dL Magnesium 2.1 (1.6-2.3) mg/dL Total Bilirubin (0.2-1.3) mg/dL AST (14-36) U/L ALT (0-35) U/L Alkaline Phosphatase (38-126) U/L Troponin I < 0.012 (0.000-0.034) ng/mL Serum Total Protein (6.3-8.2) g/dL Albumin (3.5-5.0) g/dL Amylase (30-110) U/L Lipase (23-300) U/L Influenza Type A Ag NEGATIVE (NEGATIVE) Influenza Type B Ag NEGATIVE (NEGATIVE) RSV (PCR) NEGATIVE (Negative) SARS-CoV-2 (PCR) NEGATIVE (NEGATIVE) 05/27/22 05/27/22 05/27/22 Range/Units 10:00 10:00 10:00 WBC (4.0-10.5) x10^3/uL RBC (4.1-5.4) x10^6/uL Hgb (12.0-16.0) g/dL Hct (35-47) % MCV (78-100) fL MCH (26-32) pg MCHC (32-36) g/dL RDW (11.5-14.0) % Plt Count (150-450) x10^3/uL MPV (7.5-11.0) fL Gran % (36.0-66.0) % Immature Gran % (Auto) (0.00-0.4) % Nucleat RBC Rel Count (0.00-0.1) % Eos # (Auto) (0-0.5) x10^3/uL Immature Gran # (Auto) (0.00-0.03) x10^3u/L Absolute Lymphs (auto) (1.0-4.6) x10^3/uL Absolute Monos (auto) (0.0-1.3) x10^3/uL Absolute Nucleated RBC (0.00-0.01) x10^3u/L Lymphocytes % (24.0-44.0) % Monocytes % (0.0-12.0) % Eosinophils % (0.00-5.0) % Basophils % (0.0-0.4) % Absolute Granulocytes (1.4-6.9) x10^3/uL Basophils # (0-0.4) x10^3/uL PT 11.0 (9.4-12.5) SECONDS INR 1.04 (0.8-3.0) APTT 27.0 (25.1-36.5) SECONDS Sodium 141 (137-145) mmol/L Potassium 4.3 (3.5-5.1) mmol/L Chloride 107 (98-107) mmol/L Carbon Dioxide 27 (22-30) mmol/L Anion Gap 11.7 (5-15) MEQ/L BUN 9 (7-17) mg/dL Creatinine 0.52 (0.52-1.04) mg/dL Estimated GFR > 60.0 ML/MIN Glucose 95 (74-106) mg/dL Calcium 8.8 (8.4-10.2) mg/dL Magnesium (1.6-2.3) mg/dL Total Bilirubin 0.70 (0.2-1.3) mg/dL AST 49 H (14-36) U/L ALT 33 (0-35) U/L Alkaline Phosphatase 66 (38-126) U/L Troponin I < 0.012 (0.000-0.034) ng/mL Serum Total Protein 8.6 H (6.3-8.2) g/dL Albumin 4.6 (3.5-5.0) g/dL Amylase 118 H (30-110) U/L Lipase 84 (23-300) U/L Influenza Type A Ag (NEGATIVE) Influenza Type B Ag (NEGATIVE) RSV (PCR) (Negative) SARS-CoV-2 (PCR) (NEGATIVE) 05/27/22 Range/Units 10:00 WBC 7.7 (4.0-10.5) x10^3/uL RBC 4.49 (4.1-5.4) x10^6/uL Hgb 14.1 (12.0-16.0) g/dL Hct 43.0 (35-47) % MCV 95.8 (78-100) fL MCH 31.4 (26-32) pg MCHC 32.8 (32-36) g/dL RDW 12.9 (11.5-14.0) % Plt Count 307 (150-450) x10^3/uL MPV 10.3 (7.5-11.0) fL Gran % 63.3 (36.0-66.0) % Immature Gran % (Auto) 0.3 (0.00-0.4) % Nucleat RBC Rel Count 0.0 (0.00-0.1) % Eos # (Auto) 0.26 (0-0.5) x10^3/uL Immature Gran # (Auto) 0.02 (0.00-0.03) x10^3u/L Absolute Lymphs (auto) 2.16 (1.0-4.6) x10^3/uL Absolute Monos (auto) 0.35 (0.0-1.3) x10^3/uL Absolute Nucleated RBC 0.00 (0.00-0.01) x10^3u/L Lymphocytes % 28.1 (24.0-44.0) % Monocytes % 4.6 (0.0-12.0) % Eosinophils % 3.4 (0.00-5.0) % Basophils % 0.3 (0.0-0.4) % Absolute Granulocytes 4.88 (1.4-6.9) x10^3/uL Basophils # 0.02 (0-0.4) x10^3/uL PT (9.4-12.5) SECONDS INR (0.8-3.0) APTT (25.1-36.5) SECONDS Sodium (137-145) mmol/L Potassium (3.5-5.1) mmol/L Chloride (98-107) mmol/L Carbon Dioxide (22-30) mmol/L Anion Gap (5-15) MEQ/L BUN (7-17) mg/dL Creatinine (0.52-1.04) mg/dL Estimated GFR ML/MIN Glucose (74-106) mg/dL Calcium (8.4-10.2) mg/dL Magnesium (1.6-2.3) mg/dL Total Bilirubin (0.2-1.3) mg/dL AST (14-36) U/L ALT (0-35) U/L Alkaline Phosphatase (38-126) U/L Troponin I (0.000-0.034) ng/mL Serum Total Protein (6.3-8.2) g/dL Albumin (3.5-5.0) g/dL Amylase (30-110) U/L Lipase (23-300) U/L Influenza Type A Ag (NEGATIVE) Influenza Type B Ag (NEGATIVE) RSV (PCR) (Negative) SARS-CoV-2 (PCR) (NEGATIVE) - Progress Progress: improved Progress Note: 05/27/22 12:[address] Marin 05/27/22 12:[address] Ferrer at [facility] 05/27/22 19:52 Cardizem 15mg IV Bolus w mild decrease in heart rate Cardizem drip 5mg/hr Additional 10mg IV Cardizem bolus w mild improvement in HR 5mg IV Lopressor to obtain better heart rate control 50mg po Lopressor Pt stable upon transfer w heart rate fluctuating from 90-140, but predominantly in the low 100's upon transfer/Cardizem drip at 15mg/hr 05/27/22 19:58 1L NS bolus/4mg IV Zofran Counseled pt/family regarding: lab results, diagnosis - Departure Departure Disposition: Transfer Clinical Impression: Atrial fibrillation with rapid ventricular response Condition: Stable Critical Care Time: Yes Critical Care Time(excluding separately billable procedures): Critical 30-74 mins Referrals: ANDRES MASSEY [Primary Care Provider] - Follow up/PCP as directed
[2022-05-27] MEDS ORDERED: Cardizem IV 50 MG/10 ML IV ONE ×3 (10:03→10:22)
[2022-05-27] MEDS ORDERED: Zofran 4 MG/2 ML VIAL ONE (10:05)
[2022-05-27] MEDS ORDERED: Sodium Chloride 0.9% 1000 ML 1,000 ML ONE ×2 (10:06→11:53)
[2022-05-27 10:10] LABS: Absolute Neutrophil Ct (ANC) 4.88 x10^3/uL (1.4-6.9); Basophil (Absolute #) 0.02 x10^3/uL (0-0.4); Eosinophil % 3.4 % (0.00-5.0); Eosinophil (Absolute #) 0.26 x10^3/uL (0-0.5); Hemoglobin 14.1 g/dL (12.0-16.0); Lymphocyte (Absolute #) 2.16 x10^3/uL (1.0-4.6); Lymphocytes % 28.1 % (24.0-44.0); Mean Cell Volume 95.8 fL (78-100); Mean Corpuscular Hemoglobin 31.4 pg (26-32); Mean Corpuscular Hgb Concent. 32.8 g/dL (32-36); Mean Platelet Volume 10.3 fL (7.5-11.0); Monocyte (Absolute #) 0.35 x10^3/uL (0.0-1.3); Monocytes % 4.6 % (0.0-12.0); Neutrophil % 63.3 % (36.0-66.0); Platelet Count 307 x10^3/uL (150-450); Red Blood Count 4.49 x10^6/uL (4.1-5.4); Red Cell Distribution Width 12.9 % (11.5-14.0); White Blood Count 7.7 x10^3/uL (4.0-10.5)
[2022-05-27] MEDS ORDERED: CARDIZEM DRIP 100 MG/100 ML D5W 100 ML IV PRN (10:11)
[2022-05-27] MEDS ORDERED: CARDIZEM DRIP 100 MG/100 ML D5W 100 ML IV ONE (10:22)
[2022-05-27 10:23] LABS: ALBUMIN 4.6 g/dL (3.5-5.0); ALKALINE PHOSPHATASE 66 U/L (38-126); AMYLASE 118 U/L (30-110); ANION GAP 11.7 MEQ/L (5-15); BLOOD UREA NITROGEN 9 mg/dL (7-17); CHLORIDE 107 mmol/L (98-107); Calcium 8.8 mg/dL (8.4-10.2); Carbon Dioxide 27 mmol/L (22-30); Creatinine 1 0.52 mg/dL (0.52-1.04); EST GLOMERULAR FILTRATION RATE > 60.0 ML/MIN; Glucose 95 mg/dL (74-106); LIPASE 84 U/L (23-300); Potassium 4.3 mmol/L (3.5-5.1); SGOT/AST 49 U/L (14-36); SGPT/ALT 33 U/L (0-35); SODIUM 141 mmol/L (137-145); Total Protein 8.6 g/dL (6.3-8.2)
[2022-05-27 10:51] LABS: INR 1.04 (0.8-3.0)
[2022-05-27] MEDS ORDERED: LOPRESSOR INJECTION IV ONE ×3 (11:16→12:31)
[2022-05-27] MEDS ORDERED: Lopressor 50 MG ONE (11:49)
[2022-05-27] MEDS ORDERED: ENOXAPARIN SODIUM SQ STA (12:12)
[2022-05-27 12:34] LABS: INFLUENZA A NEGATIVE (NEGATIVE); INFLUENZA B NEGATIVE (NEGATIVE); RESPIRATORY SYNCTIAL VIRUS NEGATIVE (Negative); SARS-CoV-2 Xpert Express NEGATIVE (NEGATIVE)
[2022-05-27] MEDS ORDERED: ENOXAPARIN SODIUM SQ ONE (12:57)
[2022-05-27 15:59] VITALS: BP 106/68; PULSE 122
[2022-05-27 19:58] VITALS: O2SAT 97
[2022-05-28] MEDS ORDERED: Lopressor 50 MG PO ONE (11:42)
== END 2022-05-27 15:48 | disposition short-term general hospital (02) ==
LOC: ED 09:18
DX: I48.20 Chronic atrial fibrillation, unspecified (principal); R11.2 Nausea with vomiting, unspecified; R10.13 Epigastric pain; E78.5 Hyperlipidemia, unspecified; I10 Essential (primary) hypertension; Z79.899 Other long term (current) drug therapy; Z20.828 Contact with and (suspected) exposure to other viral communicable diseases
CPT/HCPCS: 0241U; 36415; 80053; 82150; 83690; 83735; 84484; 85025; 85610; 85730; 93005; 96360; 96372; 96374; 96375; 96376; 99285; 99291; 96365; 96366; J1650; J2405; A9270-GY

== ENCOUNTER 2022-07-15 11:00 | Emergency (ER) | payer MEDICARE ==
[2022-07-15] MEDS ORDERED: BABY ASPIRIN 81 MG CHEW PO ONE (11:31)
--- NOTE | 2022-07-15 11:31 | ERPHSYRPT ---
- History of Present Illness Time Seen by Provider: 07/15/22 11:20 Historian: patient Exam Limitations: no limitations Patient Subjective Stated Complaint: Pt states that she woke up at 0430 with an electrical jolt in her chest, pt got up out of bed and continued to feel an ache in her chest, the pt went to work at 0730 at [employer] and then around 0940 pt began feeling dizzy and almost like she was going to pass out, her chest was feeling tight and having palpatations, and unable to focus, and so they made her sit there for a bit and then she left and went home and then came to the hospital Triage Nursing Assessment: Pt brought to the ER by her boyfriend, vitals wnl, pain rated 8/10 in her chest and head, pt sounded as if she was hyperventilating when she came into the ER room, she had to slow her breathing down, pt was diagnosed a month ago with A-fib at this hosp, pulses normal, skin n/w/d, appeared SOB upon arrival but is breathing fine at this time, doesn't appear to be in any distress Physician History: This is a 36-year-old obese white female who presents to the emergency department by private vehicle with left anterior chest pain described as a electrical shock without radiation that occurred at 430 this morning. It was sudden in onset. She states she has not been feeling well. She describes flulike symptoms and a headache. She is not short of breath. Patient was recently diagnosed with atrial fibrillation and is taking Eliquis. She sees Dr. Brandt for chronic pain issues such as fibromyalgia. Patient is diabetic, she has history of COPD, asthma, hyperlipidemia, hypertension, gastroesophageal reflux disease, fibromyalgia and bipolar disorder. Timing/Duration: today Activities at Onset: none Quality: other (Electrical shock) Location: other (Left anterior chest) Chest Pain Radiation: no radiation Severity of Pain-Max: moderate Severity of Pain-Current: mild Modifying Factors: Improves With: nothing Associated Symptoms: headache Prior Chest Pain/Cardiac Workup: echocardiography Nitro Today/Relief: no nitro taken today Aspirin Treatment Today: no aspirin today Allergies/Adverse Reactions: barley Allergy (Mild, Verified 07/15/22 11:20) wheat Allergy (Mild, Verified 07/15/22 11:20) corn Allergy (Verified 07/15/22 11:20) gluten Allergy (Verified 07/15/22 11:20) magnesium citrate Allergy (Verified 07/15/22 11:20) morphine Allergy (Verified 07/15/22 11:20) Rash venom-honey bee [bee venom (honey bee)] Allergy (Verified 07/15/22 11:20) seasonal allergies Allergy (Mild, Uncoded 07/15/22 11:20) Difficulty Breathing Home Medications: Albuterol 2.5 mg/3 ml Neb [Proventil 2.5 mg/3 ml Neb] 2.5 mg IH DAILY 10/13/16 [History] Mometasone/Formoterol [Dulera 100 Mcg-5 Mcg Inhaler] 13 gm IH Q4H PRN PRN 10/13/16 [History] buPROPion HCL [Wellbutrin Sr] 150 mg PO DAILY 10/13/16 [History] Lurasidone HCl [Latuda] 20 mg PO HS 03/10/17 [History] Pregabalin 50 mg [Lyrica 50MG] 50 mg PO DAILY 08/19/18 [History] Atorvastatin Calcium [Lipitor 20MG Tablet] 20 mg PO DAILY 06/01/19 [History] Tizanidine HCl 4 mg [Zanaflex 4 MG] 4 mg PO DAILY 06/01/19 [History] Apixaban [Eliquis 5 mg Tablet] 5 mg PO BID 07/15/22 [History] Diltiazem HCl [Diltiazem 24Hr ER] 240 mg PO DAILY 07/15/22 [History] Isosorbide Mononitrate [Isosorbide Mononitrate ER] 30 mg PO DAILY 07/15/22 [History] Ropinirole HCl 0.25 mg PO BID 07/15/22 [History] Hx Tetanus, Diphtheria Vaccination/Date Given: Yes Hx Influenza Vaccination/Date Given: Yes Hx Pneumococcal Vaccination/Date Given: No Travel Risk - International Travel Have you traveled outside of the country in past 3 weeks: No - Coronavirus Screening Are you exhibiting any of the following symptoms?: No Close contact with a COVID-19 positive Pt in past 14-21 Days: No - Vaccine Status Have you recieved a Covid-19 vaccination: Yes Fan Balancer: Moderna - Vaccination Dates Date of 2cond Vaccination (if applicable): unknown - Review of Systems Constitutional: No Symptoms Eyes: No Symptoms Ears, Nose, & Throat: No Symptoms Respiratory: No Symptoms Cardiac: Chest Pain Abdominal/Gastrointestinal: No Symptoms Genitourinary Symptoms: No Symptoms Musculoskeletal: No Symptoms Skin: No Symptoms Neurological: Headache Psychological: No Symptoms Endocrine: No Symptoms Hematologic/Lymphatic: No Symptoms Immunological/Allergic: No Symptoms All Other Systems: Reviewed and Negative - Past Medical History Pertinent Past Medical History: Yes Neurological History: No Pertinent History ENT History: Other Cardiac History: High Cholesterol, Hypertension Respiratory History: Asthma, COPD Endocrine Medical History: No Pertinent History Musculoskeletal History: Arthritis, Fibromyalgia, Osteoarthritis GI Medical History: GERD History: Other Psycho-Social History: Bipolar, Depression, Other Female Reproductive Disorders: Other Other Medical History: PATIENT REPORTS DX'D WITH FIBRO 3 YEARS AGO. HX OF ARTHRITIS IN THE KNEES. HX OF P.T. FOR BACK, NECK (C7 FUSION), AND SHOULDER. NEUROSTIMULATOR IMPLANT FOR PAIN IN ANKLE. HX OF BIPOLAR. kidney stones - Past Surgical History Past Surgical History: Yes Neuro Surgical History: No Pertinent History Cardiac: No Pertinent History Respiratory: No Pertinent History Gastrointestinal: Cholecystectomy Genitourinary: No Pertinent History Musculoskeletal: Orthopedic Surgery Female Surgical History: No Pertinent History Other Surgical History: cyst removal x 2, C6-C7 fusion - Social History Smoking Status: Never smoker Exposure to second hand smoke: Yes Alcohol Use: None Drug Use: none Patient Lives Alone: No Significant Family History: no pertinent family hx - Female History Hx Last Menstrual Period: 07/02/2022 Hx Now: No - Nursing Vital Signs Nursing Vital Signs: Initial Vital Signs Temperature 97.4 F 07/15/22 11:06 Pulse Rate 97 H 07/15/22 11:06 Respiratory Rate 18 07/15/22 11:06 Blood Pressure 138/80 07/15/22 11:06 O2 Sat by Pulse Oximetry 98 07/15/22 11:06 Pain Scale Pain Intensity 6 - Physical Exam General Appearance: no apparent distress, alert, anxiety, obese Eye Exam: PERRL/EOMI, eyes nml inspection Ears, Nose, Throat Exam: normal ENT inspection, moist mucous membranes Neck Exam: normal inspection, non-tender, supple, full range of motion Respiratory Exam: normal breath sounds, chest tenderness, lungs clear, airway intact, No respiratory distress Cardiovascular Exam: regular rate/rhythm, normal heart sounds, normal peripheral pulses Gastrointestinal/Abdomen Exam: soft, normal bowel sounds, No tenderness Pelvic Exam: not done Rectal Exam: not done Back Exam: normal inspection, normal range of motion, No CVA tenderness, No vertebral tenderness Extremity Exam: normal inspection, normal range of motion, pelvis stable Neurologic Exam: alert, oriented x 3, cooperative, normal mood/affect, nml cerebellar function, nml station & gait, sensation nml Skin Exam: normal color, warm, dry Lymphatic Exam: No adenopathy SpO2 Interpretation: normal SpO2: 98 O2 Delivery: Room Air - Course Nursing assessment & vital signs reviewed: Yes EKG Interpreted by Me: RATE ([id number]), Sinus Rhythm, NORMAL AXIS, NORMAL INTERVALS, Non-specific ST Changes, Other (No acute ischemic changes on today's EKG. 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 STAT Care 07/15/22 11:31 Active EKG-ER Only STAT Care 07/15/22 11:31 Active IV Insertion STAT Care 07/15/22 11:31 Active Pulse Oximetry (ED) STAT Care 07/15/22 11:31 Active CHEST 1 VIEW (PORTABLE) Stat Exams 07/15/22 11:31 Completed CBC W DIFF Stat Lab 07/15/22 11:15 Completed CMP Stat Lab 07/15/22 11:15 Completed D-DIMER QUANTITATIVE Stat Lab 07/15/22 11:15 Completed PROTIME WITH INR Stat Lab 07/15/22 11:15 Completed TROPONIN Q4H Lab 07/15/22 11:15 Completed TROPONIN Q4H Lab 07/15/22 15:45 Ordered TROPONIN Q4H Lab 07/15/22 19:45 Ordered Medication Summary Discontinued Medications Generic Name Dose Route Start Last Admin Trade Name Anastasiia PRN Reason Stop Dose Admin Aspirin 324 mg 07/15/22 11:31 07/15/22 11:39 Aspirin 81 Mg Tab.Chew PO 07/15/22 11:32 324 mg STAT ONE Administration Aspirin Confirm 07/15/22 11:39 Aspirin 81 Mg Tab.Chew Administered 07/15/22 11:40 Dose 324 mg .ROUTE .STK-MED ONE Lab/Rad Data: Laboratory Result Diagrams 07/15/22 11:15 07/15/22 11:15 Laboratory Results 07/15/22 07/15/22 07/15/22 Range/Units 12:14 11:15 11:15 WBC (4.0-10.5) x10^3/uL RBC (4.1-5.4) x10^6/uL Hgb (12.0-16.0) g/dL Hct (35-47) % MCV (78-100) fL MCH (26-32) pg MCHC (32-36) g/dL RDW (11.5-14.0) % Plt Count (150-450) x10^3/uL MPV (7.5-11.0) fL Gran % (36.0-66.0) % Immature Gran % (Auto) (0.00-0.4) % Nucleat RBC Rel Count (0.00-0.1) % Eos # (Auto) (0-0.5) x10^3/uL Immature Gran # (Auto) (0.00-0.03) x10^3u/L Absolute Lymphs (auto) (1.0-4.6) x10^3/uL Absolute Monos (auto) (0.0-1.3) x10^3/uL Absolute Nucleated RBC (0.00-0.01) x10^3u/L Lymphocytes % (24.0-44.0) % Monocytes % (0.0-12.0) % Eosinophils % (0.00-5.0) % Basophils % (0.0-0.4) % Absolute Granulocytes (1.4-6.9) x10^3/uL Basophils # (0-0.4) x10^3/uL PT 11.6 (9.4-12.5) SECONDS INR 1.10 (0.8-3.0) D-Dimer 0.20 (0.0-0.50) mg/L Sodium (137-145) mmol/L Potassium (3.5-5.1) mmol/L Chloride (98-107) mmol/L Carbon Dioxide (22-30) mmol/L Anion Gap (5-15) MEQ/L BUN (7-17) mg/dL Creatinine (0.52-1.04) mg/dL Estimated GFR ML/MIN Glucose (74-106) mg/dL Calcium (8.4-10.2) mg/dL Total Bilirubin (0.2-1.3) mg/dL AST (14-36) U/L ALT (0-35) U/L Alkaline Phosphatase (38-126) U/L Troponin I < 0.012 (0.000-0.034) ng/mL Serum Total Protein (6.3-8.2) g/dL Albumin (3.5-5.0) g/dL Influenza Type A Ag NEGATIVE (NEGATIVE) Influenza Type B Ag NEGATIVE (NEGATIVE) RSV (PCR) NEGATIVE (Negative) SARS-CoV-2 (PCR) NEGATIVE (NEGATIVE) 07/15/22 07/15/22 Range/Units 11:15 11:15 WBC 8.0 (4.0-10.5) x10^3/uL RBC 3.79 L (4.1-5.4) x10^6/uL Hgb 12.1 (12.0-16.0) g/dL Hct 36.4 (35-47) % MCV 96.0 (78-100) fL MCH 31.9 (26-32) pg MCHC 33.2 (32-36) g/dL RDW 12.7 (11.5-14.0) % Plt Count 285 (150-450) x10^3/uL MPV 10.1 (7.5-11.0) fL Gran % 68.4 H (36.0-66.0) % Immature Gran % (Auto) 0.4 (0.00-0.4) % Nucleat RBC Rel Count 0.0 (0.00-0.1) % Eos # (Auto) 0.09 (0-0.5) x10^3/uL Immature Gran # (Auto) 0.03 (0.00-0.03) x10^3u/L Absolute Lymphs (auto) 2.00 (1.0-4.6) x10^3/uL Absolute Monos (auto) 0.40 (0.0-1.3) x10^3/uL Absolute Nucleated RBC 0.00 (0.00-0.01) x10^3u/L Lymphocytes % 25.0 (24.0-44.0) % Monocytes % 5.0 (0.0-12.0) % Eosinophils % 1.1 (0.00-5.0) % Basophils % 0.1 (0.0-0.4) % Absolute Granulocytes 5.47 (1.4-6.9) x10^3/uL Basophils # 0.01 (0-0.4) x10^3/uL PT (9.4-12.5) SECONDS INR (0.8-3.0) D-Dimer (0.0-0.50) mg/L Sodium 139 (137-145) mmol/L Potassium 3.6 (3.5-5.1) mmol/L Chloride 108 H (98-107) mmol/L Carbon Dioxide 24 (22-30) mmol/L Anion Gap 10.4 (5-15) MEQ/L BUN 8 (7-17) mg/dL Creatinine 0.69 (0.52-1.04) mg/dL Estimated GFR > 60.0 ML/MIN Glucose 120 H (74-106) mg/dL Calcium 9.2 (8.4-10.2) mg/dL Total Bilirubin 0.50 (0.2-1.3) mg/dL AST 26 (14-36) U/L ALT 32 (0-35) U/L Alkaline Phosphatase 62 (38-126) U/L Troponin I (0.000-0.034) ng/mL Serum Total Protein 7.3 (6.3-8.2) g/dL Albumin 4.1 (3.5-5.0) g/dL Influenza Type A Ag (NEGATIVE) Influenza Type B Ag (NEGATIVE) RSV (PCR) (Negative) SARS-CoV-2 (PCR) (NEGATIVE) - Progress Progress: improved, re-examined Progress Note: 07/15/22 13:28 Chest x-ray shows no acute cardiopulmonary process. Blood Culture(s) Obtained: No Antibiotics given: No Counseled pt/family regarding: lab results, diagnosis, need for follow-up, rad results - Departure Departure Disposition: Home Clinical Impression: Non-cardiac chest pain Condition: Stable Critical Care Time: No Referrals: ANDRES MASSEY [Primary Care Provider] - Follow up/PCP as directed Additional Instructions: Take your medication as prescribed. Drink plenty of fluids. 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
[2022-07-15] MEDS ORDERED: BABY ASPIRIN 81 MG CHEW ONE (11:39)
[2022-07-15 11:41] LABS: Absolute Neutrophil Ct (ANC) 5.47 x10^3/uL (1.4-6.9); Basophil (Absolute #) 0.01 x10^3/uL (0-0.4); Eosinophil % 1.1 % (0.00-5.0); Eosinophil (Absolute #) 0.09 x10^3/uL (0-0.5); Hematocrit 36.4 % (35-47); Hemoglobin 12.1 g/dL (12.0-16.0); Mean Corpuscular Hemoglobin 31.9 pg (26-32); Mean Corpuscular Hgb Concent. 33.2 g/dL (32-36); Mean Platelet Volume 10.1 fL (7.5-11.0); Neutrophil % 68.4 % (36.0-66.0); Platelet Count 285 x10^3/uL (150-450); Red Blood Count 3.79 x10^6/uL (4.1-5.4); Red Cell Distribution Width 12.7 % (11.5-14.0)
[2022-07-15 11:58] LABS: ALBUMIN 4.1 g/dL (3.5-5.0); ALKALINE PHOSPHATASE 62 U/L (38-126); ANION GAP 10.4 MEQ/L (5-15); BLOOD UREA NITROGEN 8 mg/dL (7-17); CHLORIDE 108 mmol/L (98-107); Calcium 9.2 mg/dL (8.4-10.2); Carbon Dioxide 24 mmol/L (22-30); Creatinine 1 0.69 mg/dL (0.52-1.04); EST GLOMERULAR FILTRATION RATE > 60.0 ML/MIN; Glucose 120 mg/dL (74-106); Potassium 3.6 mmol/L (3.5-5.1); SGOT/AST 26 U/L (14-36); SGPT/ALT 32 U/L (0-35); SODIUM 139 mmol/L (137-145); Total Protein 7.3 g/dL (6.3-8.2)
[2022-07-15 12:00] LABS: D-DIMER QUANTITATIVE 0.2 mg/L (0.0-0.50); INR 1.1 (0.8-3.0); PROTIME 11.6 SECONDS (9.4-12.5)
--- NOTE | 2022-07-15 12:02 | XRAY ---
Indication: Chest pain. Comparison: April 03, 2022 Portable chest unchanged again demonstrating normal heart and lungs. Bony thorax intact again with cervical fusion hardware and epidural stimulator lead. No new/acute findings.
[2022-07-15 12:58] LABS: INFLUENZA A NEGATIVE (NEGATIVE); INFLUENZA B NEGATIVE (NEGATIVE); RESPIRATORY SYNCTIAL VIRUS NEGATIVE (Negative); SARS-CoV-2 Xpert Express NEGATIVE (NEGATIVE)
[2022-07-15 13:28] VITALS: O2SAT 98
[2022-07-15 14:26] VITALS: PULSE 74
[2022-07-15 15:00] LABS: Appearance Turbid (Clear); Bacteria Many /HPF (None Seen); Bilirubin Negative (Negative); Blood Large (Negative); Epithelial Cells None Seen /HPF (None Seen); Glucose Negative (Negative); Ketones Trace (Negative); Leukocyte Esterase Large (Negative); Nitrite Positive (Negative); Protein,Urine Dip 100 (Negative); Specific Gravity 1.015 (1.005-1.030); Urobilinogen 0.2 mg/dL (0.2); WBC >100 /HPF (0-5)
[2022-07-15 15:06] LABS: ADD URINE CULTURE? YES (NO)
[2022-07-15] MEDS ORDERED: ROCEPHIN 1 Gm-D5w 50 ml Bag** 1 G/50 ML IVPB IV STA (15:10)
[2022-07-15 15:12] LABS: INFLUENZA A NEGATIVE (NEGATIVE); INFLUENZA B NEGATIVE (NEGATIVE); SARS-CoV-2 Xpert Express NEGATIVE (NEGATIVE)
[2022-07-15 15:14] LABS: RESPIRATORY SYNCTIAL VIRUS POSITIVE (Negative)
[2022-07-15] MEDS ORDERED: ROCEPHIN 1 Gm-D5w 50 ml Bag** 1 G/50 ML IVPB IV ONE (15:15)
[2022-07-15 15:27] VITALS: BP 119/75
== END 2022-07-15 15:39 | disposition home or self-care (01) ==
LOC: ED 11:00
DX: R07.89 Other chest pain (principal); N39.0 Urinary tract infection, site not specified; J20.5 Acute bronchitis due to respiratory syncytial virus; R51.9 Headache, unspecified; E11.9 Type 2 diabetes mellitus without complications; E78.5 Hyperlipidemia, unspecified; I10 Essential (primary) hypertension; Z79.891 Long term (current) use of opiate analgesic; Z79.52 Long term (current) use of systemic steroids; Z79.01 Long term (current) use of anticoagulants; Z20.828 Contact with and (suspected) exposure to other viral communicable diseases
CPT/HCPCS: 0241U; 36000; 36415; 71045; 80053; 81001; 84484; 85025; 85379; 85610; 87077; 87086; 87186; 93005; 93041; 94760; 99284; J0696; A9270-GY